=== PATIENT | female | born 1950 | race Caucasian/White ===

== ENCOUNTER 2017-08-06 12:52 | Day surgery (SDC) | payer MEDICARE, OTHER ==
[~2017-08-06] VITALS: Ht 160 cm; Wt 45.6 kg
[~2017-08-06 12:52] MED LIST: ALBIPROI INH; ALBU.083IS IH; AMOCLA250S PO; BECLOI16.8 IH; CITA20 PO; CLON.5 PO; DILT120 PO; DILT30; DILTIAZEM; FLUO20 PO; FLUSAL2505 IH; GLUCHON PO; IPRAIS NEB; LAVAP17G PO; METO25ER PO; MIRT15 PO; Norco 10-325 T1 EACH PO; OXYC5 PO; PRED20 PO; TIOT18 IH; TPN ELECTROLYTE
[2017-08-06] MEDS ORDERED: MIRT15ST PO (13:38)
[2018-02-13] MEDS ORDERED: ONDA4ODT SL (18:05)
[2018-02-13] MEDS ORDERED: ALEN70 PO (18:06)
[2018-06-04] MEDS ORDERED: SACC250C PO (13:52)
[2018-06-04] MEDS ORDERED: Feverall650 MG PR (13:54)
[2018-06-04] MEDS ORDERED: Acetaminophen325 M1 PO (13:55)
[2018-06-04] MEDS ORDERED: ALBU2.5V5 NEB (13:56)
[2018-06-04] MEDS ORDERED: CLON.5 PO (13:57)
[2018-06-04] MEDS ORDERED: BENADRYL25 MG PO (13:57)
[2018-06-04] MEDS ORDERED: K-Dur20 MEQ PO (14:13)
== END 2017-08-06 15:51 | disposition home or self-care (01) ==
LOC: ORSCSDS 12:52
PROVIDERS: Internal Medicine Gastroenterology
PROC: 0DJD8ZZ Inspection of Lower Intestinal Tract, Via Natural or Artificial Opening Endoscopic (ICD-10-PCS; principal; 2017-08-06 14:15)
PROC: 0DBL8ZX Excision of Transverse Colon, Via Natural or Artificial Opening Endoscopic, Diagnostic (ICD-10-PCS; principal; 2017-08-06 14:15)
DX: Z85.048 Personal history of other malignant neoplasm of rectum, rectosigmoid junction, and anus (principal); R19.7 Diarrhea, unspecified; K52.9 Noninfective gastroenteritis and colitis, unspecified; K63.5 Polyp of colon; J43.8 Other emphysema; Z87.891 Personal history of nicotine dependence; Z79.899 Other long term (current) drug therapy
CPT/HCPCS: 88305; J7120

== ENCOUNTER 2018-01-01 10:47 | Day surgery (SDC) | payer MEDICARE, OTHER ==
[~2018-01-01] VITALS: Ht 160 cm; Wt 45.4 kg
[~2018-01-01 10:47] MED LIST changes: +MIRT15ST PO
== END 2018-01-01 22:57 | disposition home or self-care (01) ==
LOC: ORSCMMR 10:47 → ORD 12:15 → ORSCMMR 12:15
PROVIDERS: Surgery
PROC: 02HV33Z Insertion of Infusion Device into Superior Vena Cava, Percutaneous Approach (ICD-10-PCS; principal; 2018-01-01 12:15)
PROC: B5181ZA Fluoroscopy of Superior Vena Cava using Low Osmolar Contrast, Guidance (ICD-10-PCS; principal; 2018-01-01 12:15)
DX: C78.01 Secondary malignant neoplasm of right lung (principal); I10 Essential (primary) hypertension; I49.9 Cardiac arrhythmia, unspecified; J44.9 Chronic obstructive pulmonary disease, unspecified; Z87.891 Personal history of nicotine dependence; Z99.81 Dependence on supplemental oxygen; Z79.899 Other long term (current) drug therapy
CPT/HCPCS: 77001; C1788; J0690; J1100; J1642; J2250; J2405; J3010; J7120

== ENCOUNTER 2018-02-08 20:11 | Emergency (ER) | payer MEDICARE, OTHER ==
[~2018-02-08] VITALS: Ht 160 cm; Wt 43.5 kg
[2018-02-08] MEDS ORDERED: HYDR1TAB94 PO (20:22)
[2018-02-08 20:34] LABS: BASOPHILS ABSOLUTE AUTO 0.03 K/mm3 (0.00-0.23); BASOPHILS PERCENT AUTO 1 % (0-2); EOSINOPHILS ABSOLUTE AUTO 0.05 K/mm3 (0.00-0.68); EOSINOPHILS PERCENT AUTO 1 % (0-6); IMMATURE GRAN ABSOLUTE AUTO 0.04 K/mm3 (0.00-0.10); IMMATURE GRAN PERCENT AUTO 1 % (0-1); LYMPHOCYTES ABSOLUTE AUTO 0.54 K/mm3 (0.84-5.20); LYMPHOCYTES PERCENT AUTO 10 % (21-46); MONOCYTES ABSOLUTE AUTO 0.14 K/mm3 (0.16-1.47); MONOCYTES PERCENT AUTO 3 % (4-13); Mean Corpuscular HGB 31.1 pg (26.0-34.0); Mean Corpuscular HGB Conc 34.3 g/dL (31.5-36.5); Mean Corpuscular Volume 91 fL (80-100); Mean Platelet Volume 9.6 fL (9.1-12.4); NEUTROPHILS PERCENT AUTO 85 % (41-73); Platelet Count 279 K/mm3 (150-400); RDW Coefficient Variation 12.4 % (11.7-14.2); RDW Standard Deviation 40.9 fL (35.1-46.3); Red Blood Cell Count 3.86 M/mm3 (3.80-5.20)
[2018-02-08 20:46] LABS: Alanine Aminotransfer (ALT/SGP 28 U/L (12-78); Albumin, Blood 2.8 g/dL (3.4-5.0); Albumin/Globulin Ratio 0.8 (0.8-1.8); Alk Phos 146 U/L (50-136); Anion Gap 10 mmol/L (6-16); Aspartate Aminotrans (AST/SGOT 23 U/L (12-37); Bilirubin, Total 0.5 mg/dL (0.1-1.0); Blood Urea Nitrogen 18 mg/dL (8-24); Bun/Creatinine Ratio 23.6 (12.0-20.0); CO2, Blood 32 mmol/L (21-32); Calcium, Blood 9.5 mg/dL (8.5-10.1); Chloride, Blood 100 mmol/L (98-108); Creatinine, Blood 0.76 mg/dL (0.40-1.00); Globulin, Blood 3.5 g/dL (2.2-4.0); Glomerular Filtration Rate >60 (60-); Glucose, Blood 122 mg/dL (70-99); Potassium, Blood 3.2 mmol/L (3.5-5.5); Sodium, Blood 142 mmol/L (136-145); Total Protein, Blood 6.3 g/dL (6.4-8.2)
[2018-02-08 21:55] LABS: Source, Urine Clean Catch
[2018-02-08 21:59] LABS: Bilirubin, Urine Neg (Neg); Blood, Urine Neg (Neg); Glucose Qualitative, Urine Neg (Neg); Ketones, Urine 1+ (Neg); Leukocyte Esterase, Urine Neg (Neg); Nitrite, Urine Neg (Neg); Protein, Urine Neg (Neg); Urobilinogen, Urine NORM (Normal)
[2018-02-08 22:09] LABS: Appearance, Urine Clear (Clear); Color, Urine Yellow (P-Yellow)
== END 2018-02-08 22:32 | disposition home or self-care (01) ==
LOC: ER 20:11
PROVIDERS: Emergency Medicine
DX: C19 Malignant neoplasm of rectosigmoid junction (principal); J44.9 Chronic obstructive pulmonary disease, unspecified; Z79.899 Other long term (current) drug therapy; Z87.891 Personal history of nicotine dependence
CPT/HCPCS: 36415; 80053; 81003; 83690; 85025; 96374; 99284-25; J2405

== ENCOUNTER 2018-02-22 12:47 | Emergency (ER) | payer MEDICARE, OTHER ==
[~2018-02-22] VITALS: Ht 160 cm; Wt 40.8 kg
[~2018-02-22 12:47] MED LIST changes: +ALEN70 PO; +HYDR1TAB94 PO; +ONDA4ODT SL
[2018-02-22] MEDS ORDERED: Lomotil Tablet1 EACH PO (12:57)
[2018-02-22] MEDS ORDERED: OXYC5 PO (12:57)
[2018-02-22] MEDS ORDERED: FLUT1DIS5 INH (12:58)
[2018-02-22 13:09] LABS: BASOPHILS ABSOLUTE AUTO 0.03 K/mm3 (0.00-0.23); BASOPHILS PERCENT AUTO 1 % (0-2); EOSINOPHILS ABSOLUTE AUTO 0.06 K/mm3 (0.00-0.68); EOSINOPHILS PERCENT AUTO 2 % (0-6); Hematocrit 33.9 % (33.0-51.0); Hemoglobin 11.3 g/dL (11.5-16.0); IMMATURE GRAN ABSOLUTE AUTO 0.05 K/mm3 (0.00-0.10); IMMATURE GRAN PERCENT AUTO 1 % (0-1); LYMPHOCYTES ABSOLUTE AUTO 0.32 K/mm3 (0.84-5.20); LYMPHOCYTES PERCENT AUTO 9 % (21-46); MONOCYTES ABSOLUTE AUTO 0.06 K/mm3 (0.16-1.47); MONOCYTES PERCENT AUTO 2 % (4-13); Mean Corpuscular HGB Conc 33.3 g/dL (31.5-36.5); Mean Corpuscular Volume 93 fL (80-100); Mean Platelet Volume 9.5 fL (9.1-12.4); NEUTROPHILS ABSOLUTE AUTO 3.17 K/mm3 (1.96-9.15); NEUTROPHILS PERCENT AUTO 86 % (41-73); Platelet Count 250 K/mm3 (150-400); RDW Coefficient Variation 13.1 % (11.7-14.2); RDW Standard Deviation 44.3 fL (35.1-46.3); Red Blood Cell Count 3.64 M/mm3 (3.80-5.20); White Blood Cell Count 3.69 K/mm3 (4.00-11.30)
[2018-02-22 13:37] LABS: Troponin I <0.015 ng/mL (0.000-0.040)
[2018-02-22 13:54] LABS: Alanine Aminotransfer (ALT/SGP 23 U/L (12-78); Albumin, Blood 2.4 g/dL (3.4-5.0); Albumin/Globulin Ratio 0.8 (0.8-1.8); Alk Phos 123 U/L (50-136); Anion Gap 6 mmol/L (6-16); Aspartate Aminotrans (AST/SGOT 24 U/L (12-37); Bilirubin, Total 0.3 mg/dL (0.1-1.0); Blood Urea Nitrogen 28 mg/dL (8-24); Bun/Creatinine Ratio 44.9 (12.0-20.0); CO2, Blood 27 mmol/L (21-32); Chloride, Blood 107 mmol/L (98-108); Creatinine, Blood 0.62 mg/dL (0.40-1.00); Globulin, Blood 3.2 g/dL (2.2-4.0); Glomerular Filtration Rate >60 (60-); Glucose, Blood 104 mg/dL (70-99); Potassium, Blood 3.8 mmol/L (3.5-5.5); Sodium, Blood 140 mmol/L (136-145); Total Protein, Blood 5.6 g/dL (6.4-8.2)
[2018-02-22] MEDS ORDERED: Benadryl A12.5 MG/5 PO (15:15)
== END 2018-02-22 16:00 | disposition home or self-care (01) ==
LOC: ER 12:47
PROVIDERS: Emergency Medicine
DX: R13.10 Dysphagia, unspecified (principal); E86.0 Dehydration; R53.1 Weakness; J44.9 Chronic obstructive pulmonary disease, unspecified; Z79.899 Other long term (current) drug therapy; Z87.891 Personal history of nicotine dependence
CPT/HCPCS: 36415; 71046; 80053; 84484; 85025; 93005; 93010; 96360; 99284-25; J7120

== ENCOUNTER → 2018-02-26 | Outpatient (CLI) | payer MEDICARE, OTHER ==
[~2018-02-26] MED LIST changes: +Benadryl A12.5 MG/5 PO; +FLUT1DIS5 INH; +Lomotil Tablet1 EACH PO
[2018-03-01 17:08] LABS: A/G RATIO 0.9 (0.7-1.7); ALBUMIN 2.8 g/dL (2.9-4.4); ALPHA-1-GLOBULIN 0.3 g/dL (0.0-0.4); GAMMA GLOBULIN 0.7 g/dL (0.4-1.8); IMMUNOGLOBULIN A, QN, SERUM 183 mg/dL (87-352); IMMUNOGLOBULIN G, QN, SERUM 650 mg/dL (700-1600); IMMUNOGLOBULIN M, QN, SERUM 31 mg/dL (26-217); M-SPIKE 0.1 g/dL (Not Observed); PROTEIN, TOTAL, SERUM 5.8 g/dL (6.0-8.5)
== END | disposition home or self-care (01) ==
LOC: LAB 08:48 → LAB SHORT 08:48
PROVIDERS: Internal Medicine Hematology & Oncology
DX: R16.0 Hepatomegaly, not elsewhere classified (principal); R91.1 Solitary pulmonary nodule
CPT/HCPCS: 84165

== ENCOUNTER → 2018-03-16 | Outpatient (CLI) | payer MEDICARE, OTHER ==
[2018-03-16 17:24] LABS: Alanine Aminotransfer (ALT/SGP 33 U/L (12-78); Albumin, Blood 2.8 g/dL (3.4-5.0); Albumin/Globulin Ratio 0.8 (0.8-1.8); Alk Phos 141 U/L (50-136); Anion Gap 11 mmol/L (6-16); Aspartate Aminotrans (AST/SGOT 22 U/L (12-37); Bilirubin, Total 0.4 mg/dL (0.1-1.0); Blood Urea Nitrogen 19 mg/dL (8-24); Bun/Creatinine Ratio 27.2 (12.0-20.0); CO2, Blood 26 mmol/L (21-32); Calcium, Blood 8.6 mg/dL (8.5-10.1); Chloride, Blood 110 mmol/L (98-108); Globulin, Blood 3.3 g/dL (2.2-4.0); Glomerular Filtration Rate >60 (60-); Glucose, Blood 112 mg/dL (70-99); Potassium, Blood 2.6 mmol/L (3.5-5.5); Sodium, Blood 147 mmol/L (136-145); Total Protein, Blood 6.1 g/dL (6.4-8.2)
== END | disposition home or self-care (01) ==
LOC: LAB 16:36 → LAB SHORT 16:36
PROVIDERS: Internal Medicine Hematology & Oncology
DX: C18.9 Malignant neoplasm of colon, unspecified (principal)
CPT/HCPCS: 80053; 82378

== ENCOUNTER → 2018-03-31 | Outpatient (CLI) | payer MEDICARE, OTHER ==
[2018-03-31 16:21] LABS: Alanine Aminotransfer (ALT/SGP 21 U/L (12-78); Albumin, Blood 2.5 g/dL (3.4-5.0); Albumin/Globulin Ratio 0.8 (0.8-1.8); Alk Phos 152 U/L (50-136); Anion Gap 10 mmol/L (6-16); Aspartate Aminotrans (AST/SGOT 26 U/L (12-37); Bilirubin, Total 0.4 mg/dL (0.1-1.0); Blood Urea Nitrogen 11 mg/dL (8-24); Bun/Creatinine Ratio 19.4 (12.0-20.0); CO2, Blood 26 mmol/L (21-32); Calcium, Blood 8.6 mg/dL (8.5-10.1); Chloride, Blood 105 mmol/L (98-108); Creatinine, Blood 0.57 mg/dL (0.40-1.00); Globulin, Blood 3.2 g/dL (2.2-4.0); Glomerular Filtration Rate >60 (60-); Glucose, Blood 73 mg/dL (70-99); Magnesium, Blood 2.1 mg/dL (1.6-2.4); Potassium, Blood 4.3 mmol/L (3.5-5.5); Sodium, Blood 141 mmol/L (136-145); Total Protein, Blood 5.7 g/dL (6.4-8.2)
== END ==
LOC: LAB 15:33 → LAB SHORT 15:33
PROVIDERS: Internal Medicine Hematology & Oncology
DX: C18.9 Malignant neoplasm of colon, unspecified (principal)
CPT/HCPCS: 80053; 83735

== ENCOUNTER 2018-07-16 08:00 | Day surgery (SDC) | payer MEDICARE, OTHER ==
[~2018-07-16 08:00] MED LIST changes: +ALBU2.5V5 NEB; +Acetaminophen325 M1 PO; +BENADRYL25 MG PO; +Feverall650 MG PR; +K-Dur20 MEQ PO; +SACC250C PO
== END 2018-07-16 23:06 | disposition home or self-care (01) ==
LOC: WOUND 08:00
DX: T81.31XD Disruption of external operation (surgical) wound, not elsewhere classified, subsequent encounter (principal); Z93.1 Gastrostomy status
CPT/HCPCS: G0463

== ENCOUNTER 2018-07-26 15:00 | Day surgery (SDC) | payer MEDICARE, OTHER | END 2018-07-26 22:40 | disposition home or self-care (01) | LOC: WOUND 15:00 | DX: T81.31XD Disruption of external operation (surgical) wound, not elsewhere classified, subsequent encounter (principal); Z93.1 Gastrostomy status | CPT/HCPCS: G0463 ==

== ENCOUNTER → 2018-08-11 | Outpatient (CLI) | payer MEDICARE, OTHER | END | disposition home or self-care (01) | LOC: LAB EV 14:26 → LAB SHORT 14:26 | DX: N39.0 Urinary tract infection, site not specified (principal) | CPT/HCPCS: 87086 ==

== ENCOUNTER 2018-08-16 10:20 | Day surgery (SDC) | payer MEDICARE, OTHER | END 2018-08-16 22:53 | disposition home or self-care (01) | LOC: WOUND 10:20 | DX: T81.32XD Disruption of internal operation (surgical) wound, not elsewhere classified, subsequent encounter (principal); Z93.1 Gastrostomy status | CPT/HCPCS: G0463 ==

== ENCOUNTER → 2018-12-05 | Outpatient (CLI) | payer MEDICARE, OTHER ==
[2018-12-05 14:07] LABS: BASOPHILS ABSOLUTE AUTO 0.04 K/mm3 (0.00-0.23); BASOPHILS PERCENT AUTO 1 % (0-2); EOSINOPHILS ABSOLUTE AUTO 0.08 K/mm3 (0.00-0.68); EOSINOPHILS PERCENT AUTO 1 % (0-6); Hematocrit 37.3 % (33.0-51.0); Hemoglobin 12.5 g/dL (11.5-16.0); IMMATURE GRAN ABSOLUTE AUTO 0.02 K/mm3 (0.00-0.10); IMMATURE GRAN PERCENT AUTO 0 % (0-1); LYMPHOCYTES ABSOLUTE AUTO 0.61 K/mm3 (0.84-5.20); LYMPHOCYTES PERCENT AUTO 9 % (21-46); MONOCYTES ABSOLUTE AUTO 0.38 K/mm3 (0.16-1.47); MONOCYTES PERCENT AUTO 6 % (4-13); Mean Corpuscular HGB 31.8 pg (26.0-34.0); Mean Corpuscular HGB Conc 33.5 g/dL (31.5-36.5); Mean Corpuscular Volume 95 fL (80-100); Mean Platelet Volume 10.2 fL (9.1-12.4); NEUTROPHILS ABSOLUTE AUTO 5.58 K/mm3 (1.96-9.15); NEUTROPHILS PERCENT AUTO 83 % (41-73); Platelet Count 187 K/mm3 (150-400); RDW Coefficient Variation 13.1 % (11.7-14.2); RDW Standard Deviation 45.2 fL (35.1-46.3); Red Blood Cell Count 3.93 M/mm3 (3.80-5.20); White Blood Cell Count 6.71 K/mm3 (4.00-11.30)
[2018-12-05 14:23] LABS: Alanine Aminotransfer (ALT/SGP 53 U/L (12-78); Albumin, Blood 3.8 g/dL (3.4-5.0); Alk Phos 140 U/L (40-126); Anion Gap 10 mmol/L (6-16); Aspartate Aminotrans (AST/SGOT 33 U/L (12-37); Bilirubin, Total 0.4 mg/dL (0.1-1.0); Blood Urea Nitrogen 10 mg/dL (8-24); Bun/Creatinine Ratio 15.9 (12.0-20.0); CO2, Blood 24 mmol/L (21-32); Calcium, Blood 9.4 mg/dL (8.5-10.1); Chloride, Blood 105 mmol/L (98-108); Creatinine, Blood 0.63 mg/dL (0.40-1.00); Globulin, Blood 3.9 g/dL (2.2-4.0); Glomerular Filtration Rate >60 (60-); Glucose, Blood 101 mg/dL (70-99); Sodium, Blood 139 mmol/L (136-145); Total Protein, Blood 7.7 g/dL (6.4-8.2)
== END | disposition home or self-care (01) ==
LOC: LAB EV 14:02 → LAB SHORT 14:02
PROVIDERS: Physician Assistant
DX: R05 Cough (principal)
CPT/HCPCS: 80053; 85025

== ENCOUNTER 2019-03-30 08:23 | Day surgery (SDC) | payer MEDICARE, OTHER ==
[~2019-03-30] VITALS: Ht 160 cm; Wt 39.1 kg
--- NOTE | 2019-03-30 09:25 | NUR ---
Ambulatory in Day Surgery. History, Chart, Medications and Allergies reviewed before start of procedure.Patient confirms NPO status and agrees with scheduled surgery. Patient reports completing Chlorhexadine shower X2 prior to admission to hospital.Surgical site prepped with 2% Chlorhexidine cloth wipe. Patient States Post-Procedure ride home has been arranged. PATIENT ARRIVED WITH BACKPACK CONTAINING PERSONAL OXYGEN TANK. IT IS PLACED WITH HER PERSONAL BELONGINGS UNDER BED.
--- NOTE | 2019-03-30 12:56 | NUR ---
Discharge instructions reviewed with patient. Patient verbalizes understanding. Copy given to patient to take home. Patient up to Ambulate independently. Gait steady. Patient States Post-Procedure ride home has been arranged. Discharged via wheelchair to private car for ride home. HAD TO REINFORCE IV SITE DRESSING DUE TO LEAKING AFTER IV REMOVAL
== END 2019-03-30 12:48 | disposition home or self-care (01) ==
LOC: ORSCMMR 08:23
PROVIDERS: Surgery
PROC: 02HV33Z Insertion of Infusion Device into Superior Vena Cava, Percutaneous Approach (ICD-10-PCS; principal; 2019-03-30 10:00)
PROC: B5181ZA Fluoroscopy of Superior Vena Cava using Low Osmolar Contrast, Guidance (ICD-10-PCS; principal; 2019-03-30 10:00)
DX: C18.9 Malignant neoplasm of colon, unspecified (principal); J44.9 Chronic obstructive pulmonary disease, unspecified; Z99.81 Dependence on supplemental oxygen; Z87.891 Personal history of nicotine dependence; Z79.899 Other long term (current) drug therapy
CPT/HCPCS: 77001; A9270-GY; C1788; J0690; J1100; J1642; J2370; J2405; J2704; J3010; J7120

== ENCOUNTER → 2019-05-19 | Outpatient (CLI) | payer MEDICARE, OTHER ==
[2019-05-19 12:22] LABS: BASOPHILS ABSOLUTE AUTO 0.03 K/mm3 (0.00-0.23); BASOPHILS PERCENT AUTO 1 % (0-2); EOSINOPHILS ABSOLUTE AUTO 0.07 K/mm3 (0.00-0.68); EOSINOPHILS PERCENT AUTO 1 % (0-6); Hematocrit 36.2 % (33.0-51.0); Hemoglobin 11.8 g/dL (11.5-16.0); IMMATURE GRAN ABSOLUTE AUTO 0.02 K/mm3 (0.00-0.10); IMMATURE GRAN PERCENT AUTO 0 % (0-1); LYMPHOCYTES ABSOLUTE AUTO 0.67 K/mm3 (0.84-5.20); LYMPHOCYTES PERCENT AUTO 13 % (21-46); MONOCYTES PERCENT AUTO 2 % (4-13); Mean Corpuscular HGB 32.2 pg (26.0-34.0); Mean Corpuscular HGB Conc 32.6 g/dL (31.5-36.5); Mean Platelet Volume 10.3 fL (9.1-12.4); NEUTROPHILS ABSOLUTE AUTO 4.48 K/mm3 (1.96-9.15); NEUTROPHILS PERCENT AUTO 83 % (41-73); Platelet Count 202 K/mm3 (150-400); RDW Coefficient Variation 13.8 % (11.7-14.2); RDW Standard Deviation 50.1 fL (35.1-46.3); Red Blood Cell Count 3.67 M/mm3 (3.80-5.20); White Blood Cell Count 5.37 K/mm3 (4.00-11.30)
[2019-05-19 12:23] LABS: Mean Corpuscular Volume 99 fL (80-100)
[2019-05-19 12:39] LABS: Anion Gap 6 mmol/L (6-16); Blood Urea Nitrogen 13 mg/dL (8-24); Bun/Creatinine Ratio 19.7 (12.0-20.0); CO2, Blood 32 mmol/L (21-32); Calcium, Blood 8.6 mg/dL (8.5-10.1); Chloride, Blood 109 mmol/L (98-108); Creatinine, Blood 0.66 mg/dL (0.40-1.00); Glomerular Filtration Rate >60 (60-); Glucose, Blood 101 mg/dL (70-99); Potassium, Blood 3.1 mmol/L (3.5-5.5); Sodium, Blood 147 mmol/L (136-145)
[2019-05-19 12:47] LABS: Troponin I <0.017 ng/mL (0.000-0.040)
== END | disposition home or self-care (01) ==
LOC: LAB EV 12:18 → LAB SHORT 12:18
PROVIDERS: Physician Assistant Surgical
DX: R07.81 Pleurodynia (principal)
CPT/HCPCS: 80048; 84484; 85025

== ENCOUNTER 2020-11-01 17:08 | Inpatient (IN) | payer MEDICARE, OTHER ==
[~2020-11-01] VITALS: Ht 160 cm; Wt 38.3 kg
[~2020-11-01 17:08] MED LIST changes: +Celexa10 MG; -DILT120 PO; -FLUT1DIS5 INH; -MIRT15ST PO
[2020-11-01 17:51] LABS: BASOPHILS PERCENT AUTO 0 % (0-2); EOSINOPHILS ABSOLUTE AUTO 0.01 K/mm3 (0.00-0.68); EOSINOPHILS PERCENT AUTO 1 % (0-6); Hematocrit 36.8 % (33.0-51.0); Hemoglobin 11.9 g/dL (11.5-16.0); IMMATURE GRAN PERCENT AUTO 0 % (0-1); LYMPHOCYTES ABSOLUTE AUTO 0.31 K/mm3 (0.84-5.20); LYMPHOCYTES PERCENT AUTO 23 % (21-46); MONOCYTES ABSOLUTE AUTO 0.08 K/mm3 (0.16-1.47); MONOCYTES PERCENT AUTO 6 % (4-13); Mean Corpuscular HGB Conc 32.3 g/dL (31.5-36.5); Mean Corpuscular Volume 99 fL (80-100); Mean Platelet Volume 9.9 fL (9.1-12.4); NEUTROPHILS ABSOLUTE AUTO 0.96 K/mm3 (1.96-9.15); NEUTROPHILS PERCENT AUTO 71 % (41-73); Platelet Count 358 K/mm3 (150-400); RDW Coefficient Variation 15.5 % (11.7-14.2); RDW Standard Deviation 56.1 fL (35.1-46.3); Red Blood Cell Count 3.72 M/mm3 (3.80-5.20); White Blood Cell Count 1.36 K/mm3 (4.00-11.30)
[2020-11-01 18:04] LABS: Alanine Aminotransfer (ALT/SGP 36 U/L (12-78); Albumin, Blood 3.7 g/dL (3.4-5.0); Albumin/Globulin Ratio 1.1 (0.8-1.8); Alk Phos 75 U/L (50-136); Anion Gap 4 mmol/L (6-16); Aspartate Aminotrans (AST/SGOT 29 U/L (12-37); Bilirubin, Total 0.7 mg/dL (0.1-1.0); Blood Urea Nitrogen 28 mg/dL (8-24); Bun/Creatinine Ratio 36.6 (12.0-20.0); CO2, Blood 38 mmol/L (21-32); Calcium, Blood 9.7 mg/dL (8.5-10.1); Chloride, Blood 97 mmol/L (98-108); Creatinine, Blood 0.77 mg/dL (0.40-1.00); Globulin, Blood 3.3 g/dL (2.2-4.0); Glomerular Filtration Rate >60 (60-); Glucose, Blood 106 mg/dL (70-99); Potassium, Blood 3.5 mmol/L (3.5-5.5); Sodium, Blood 139 mmol/L (136-145)
[2020-11-01 20:41] LABS: Source, Urine Clean Catch
[2020-11-01 20:46] LABS: Appearance, Urine Cloudy (Clear); Bilirubin, Urine Neg (Neg); Blood, Urine Neg (Neg); Color, Urine Yellow (P-Yellow); Glucose Qualitative, Urine Neg (Neg); Ketones, Urine Neg (Neg); Leukocyte Esterase, Urine 1+ (Neg); Nitrite, Urine Neg (Neg); Protein, Urine 1+ (Neg); Urobilinogen, Urine NORM (Normal)
[2020-11-01 20:53] LABS: Granular Casts 0-2 /lpf (0)
[2020-11-01 20:54] LABS: Amorphous Mod (0-Heavy); Bacteria Many /hpf; Red Blood Cells, Urine 0-2 /hpf (0-2); Squamous Epithelial Cells Few /hpf (Few); White Blood Cells, Urine 0-2 /hpf (0-5)
[2020-11-01] MEDS ORDERED: TIOT18 INH (22:41)
[2020-11-01] MEDS ORDERED: DILT120 PO (22:41)
[2020-11-01] MEDS ORDERED: MIRT15 PO (22:42)
[2020-11-01] MEDS ORDERED: ESCI10 PO (22:42)
[2020-11-01] MEDS ORDERED: FLUT1DIS5 INH (22:43)
[2020-11-01] MEDS ORDERED: CLON.5 PO (22:44)
[2020-11-01] MEDS ORDERED: Ventolin/Prove6.7 GM INH (22:45)
--- NOTE | 2020-11-02 03:06 | NUR ---
PT TO ROOM 219, A/O X4, SBA IN ROOM. DENIES PAIN AND N/V AT THIS TIME. COLOSTOMY IN PLACE TO ABD WITH SMALL AMT STOOL. PT ORIENTED TO ROOM AND CALL LIGHT. NPO STATUS; SWABS PROVIDED. IV FLUIDS STARTED AT 75/HR.
[2020-11-02 04:57] LABS: Anion Gap 4 mmol/L (6-16); Blood Urea Nitrogen 21 mg/dL (8-24); Bun/Creatinine Ratio 28.6 (12.0-20.0); CO2, Blood 30 mmol/L (21-32); Calcium, Blood 7.8 mg/dL (8.5-10.1); Chloride, Blood 108 mmol/L (98-108); Creatinine, Blood 0.73 mg/dL (0.40-1.00); Glomerular Filtration Rate >60 (60-); Glucose, Blood 81 mg/dL (70-99); Sodium, Blood 142 mmol/L (136-145)
--- NOTE | 2020-11-02 08:09 | NUR ---
pt reports dec abd dist but tempering kiln tender req med passing flatus and some liquid stool
--- NOTE | 2020-11-02 09:00 | NUR ---
25 mcg fent given offered klonopin pt declined at this time po meds given with sip of h20 no nausea pain 12/27
--- NOTE | 2020-11-02 11:12 | NUR ---
dr oneil by to see pt
--- NOTE | 2020-11-02 14:04 | NUR ---
pt given additional 50 mcg fent per new order from dr sendy blanchard to 01/26 earlier pt had some ice chips
--- NOTE | 2020-11-02 15:44 | NUR ---
dr poole by to see pt weight bearing status to cont nwb for 6 weeks
--- NOTE | 2020-11-02 17:02 | NUR ---
pt resting still only wanting to have ice chips at this time
--- NOTE | 2020-11-02 17:35 | NUR ---
Met with Maria R today at her bedside. She is laying back in bed, with the lights off, but she invites me in anyway. We discussed her current medical symptoms, of rectal cancer with mets to liver, lung and abd. She states currently, she receives chemotherapy to shrink the tumors and improve quality of life. She's in the hospital at this time due to increased weakness to bilat lower extremet weakness; unknown etiology. No specific palliative needs at this time.
--- NOTE | 2020-11-02 18:24 | NUR ---
PT SLEEPING WAKES TO VERBAL STIMULI FALLS BACK TO SLEEP
[2020-11-03 05:05] LABS: Albumin, Blood 2.6 g/dL (3.4-5.0); Anion Gap 8 mmol/L (6-16); Blood Urea Nitrogen 28 mg/dL (8-24); CO2, Blood 25 mmol/L (21-32); Calcium, Blood 7.7 mg/dL (8.5-10.1); Chloride, Blood 111 mmol/L (98-108); Creatinine, Blood 0.74 mg/dL (0.40-1.00); Glomerular Filtration Rate >60 (60-); Glucose, Blood 60 mg/dL (70-99); Phosphorus, Blood 3.5 mg/dL (2.5-4.9); Potassium, Blood 3.7 mmol/L (3.5-5.5); Sodium, Blood 144 mmol/L (136-145)
[2020-11-03 05:49] LABS: BASOPHILS ABSOLUTE AUTO 0.01 K/mm3 (0.00-0.23); BASOPHILS PERCENT AUTO 1 % (0-2); Hematocrit 32.1 % (33.0-51.0); Hemoglobin 9.9 g/dL (11.5-16.0); Mean Corpuscular HGB 32.1 pg (26.0-34.0); Mean Corpuscular HGB Conc 30.8 g/dL (31.5-36.5); Mean Platelet Volume 10.2 fL (9.1-12.4); Platelet Count 233 K/mm3 (150-400); RDW Coefficient Variation 15.6 % (11.7-14.2); RDW Standard Deviation 59.4 fL (35.1-46.3); Red Blood Cell Count 3.08 M/mm3 (3.80-5.20); White Blood Cell Count 1.28 K/mm3 (4.00-11.30)
[2020-11-03 05:51] LABS: EOSINOPHILS ABSOLUTE AUTO 0.03 K/mm3 (0.00-0.68); EOSINOPHILS PERCENT AUTO 2 % (0-6); IMMATURE GRAN ABSOLUTE AUTO 0.07 K/mm3 (0.00-0.10); IMMATURE GRAN PERCENT AUTO 6 % (0-1); LYMPHOCYTES ABSOLUTE AUTO 0.28 K/mm3 (0.84-5.20); LYMPHOCYTES PERCENT AUTO 22 % (21-46); MONOCYTES ABSOLUTE AUTO 0.05 K/mm3 (0.16-1.47); MONOCYTES PERCENT AUTO 4 % (4-13); NEUTROPHILS ABSOLUTE AUTO 0.84 K/mm3 (1.96-9.15); NEUTROPHILS PERCENT AUTO 66 % (41-73)
[2020-11-03 05:52] LABS: Mean Corpuscular Volume 104 fL (80-100)
[2020-11-03 06:16] LABS: BAND PERCENT MAN 9 % (0-8); BASOPHILS PERCENT MAN 0 % (0-2); EOSINOPHILS ABSOLUTE MAN 0.02 K/mm3 (0.00-0.68); EOSINOPHILS PERCENT MAN 2 % (0-6); LYMPHOCYTES % ATYPICAL MANUAL 2 % (0-0); LYMPHOCYTES ABSOLUTE MAN 0.26 K/mm3 (0.84-5.20); LYMPHOCYTES PERCENT MAN 19 % (21-46); METAMYELOCYTE ABSOLUTE MAN 0.01 K/mm3 (0.00-0.00); METAMYELOCYTE PERCENT MAN 1 % (0-0); MONOCYTES ABSOLUTE MAN 0.06 K/mm3 (0.16-1.47); MONOCYTES PERCENT MAN 5 % (4-13); SEG NEUTROPHILS PERCENT MAN 62 % (41-73); TOTAL CELLS COUNTED 100
--- NOTE | 2020-11-03 07:32 | NUR ---
SHIFT SUMMARY S/P N/V W/ ABD DISTENTION AND ABD PAIN, A/O X3 (PERSON/PLACE/SITUATION), TOLERATING CLEARS BUT PT PREFERS ICE CHIPS, GLUCOSE LOW @ MORNING LABS, GAVE SWEETENED APPLE JUICE AND RECHECKED AND FOUND GLUCOSE WNL (SEE LAB), DENIED PAIN THROUGH MOST OF SHIFT THOUGH PT DID REPORT INCREASE NEAR END OF SHIFT, GAVE IV MEDS DUE TO NO ORAL PAIN MEDS ORDERD, DISCUSSED ORAL PAIN MED W/ DAY RN. BEDREST PER ORDER. NO ACUTE EVENTS THIS SHIFT. CALL LIGHT IN REACH, REPORT GIVEN TO DAY RN AND ELECTRICAL PARTS RECONDITIONER.
--- NOTE | 2020-11-03 10:39 | NUR ---
PERMISSION OBTAINED FROM PT TO UPDATE HER DAUGHTER IRMA ON HER CONDITION.
--- NOTE | 2020-11-03 18:06 | NUR ---
SHIFT SUMMARY PT'S ABD REMAINS DISTENDED BUT SHE IS PASSING STOOL FROM HER OSTOMY. PT TOLERATED A FULL LIQUID TRAY FOR DINNER AND WILL ADVANCE TO REGULAR DIET TOMORROW. PT IS INDEPENDENT TO THE BATHROOM. PT IS GETTING ABX. PAIN MANAGED WITH PERCOCET. VSS. WILL MONITOR UNTIL REPORT TO NOC RN.
[2020-11-04 08:00] LABS: BASOPHILS ABSOLUTE AUTO 0.01 K/mm3 (0.00-0.23); BASOPHILS PERCENT AUTO 1 % (0-2); Hematocrit 31.5 % (33.0-51.0); Hemoglobin 9.7 g/dL (11.5-16.0); LYMPHOCYTES ABSOLUTE AUTO 0.25 K/mm3 (0.84-5.20); LYMPHOCYTES PERCENT AUTO 22 % (21-46); MONOCYTES ABSOLUTE AUTO 0.06 K/mm3 (0.16-1.47); MONOCYTES PERCENT AUTO 5 % (4-13); Mean Corpuscular HGB 32.6 pg (26.0-34.0); Mean Corpuscular HGB Conc 30.8 g/dL (31.5-36.5); Mean Corpuscular Volume 106 fL (80-100); Platelet Count 184 K/mm3 (150-400); RDW Coefficient Variation 15.6 % (11.7-14.2); RDW Standard Deviation 60.4 fL (35.1-46.3); Red Blood Cell Count 2.98 M/mm3 (3.80-5.20); White Blood Cell Count 1.12 K/mm3 (4.00-11.30)
[2020-11-04 08:06] LABS: EOSINOPHILS ABSOLUTE AUTO 0.03 K/mm3 (0.00-0.68); EOSINOPHILS PERCENT AUTO 3 % (0-6); IMMATURE GRAN ABSOLUTE AUTO 0.06 K/mm3 (0.00-0.10); IMMATURE GRAN PERCENT AUTO 5 % (0-1); NEUTROPHILS ABSOLUTE AUTO 0.71 K/mm3 (1.96-9.15); NEUTROPHILS PERCENT AUTO 63 % (41-73)
[2020-11-04 08:17] LABS: Albumin, Blood 2.3 g/dL (3.4-5.0); Anion Gap 5 mmol/L (6-16); Blood Urea Nitrogen 18 mg/dL (8-24); Bun/Creatinine Ratio 30.9 (12.0-20.0); CO2, Blood 26 mmol/L (21-32); Calcium, Blood 7.2 mg/dL (8.5-10.1); Chloride, Blood 116 mmol/L (98-108); Creatinine, Blood 0.58 mg/dL (0.40-1.00); Glomerular Filtration Rate >60 (60-); Glucose, Blood 84 mg/dL (70-99); Phosphorus, Blood 1.5 mg/dL (2.5-4.9); Potassium, Blood 3.1 mmol/L (3.5-5.5); Sodium, Blood 147 mmol/L (136-145); Vancomycin, Trough 3.7 ug/mL (5.0-10.0)
--- NOTE | 2020-11-04 17:06 | NUR ---
INCREASED PAIN AND NAUSEA PT COMPLAINED OF INCREASED PAIN AND NAUSEA. PERCOCET WAS GIVEN BUT NOT EFFECTIVE FOR PAIN. ZOFRAN AND FENTANYL GIVEN. DIET CHANGED TO FULL LIQUID PER PT REQUEST. WILL CONTINUE TO MONITOR.
--- NOTE | 2020-11-04 18:43 | NUR ---
SHIFT SUMMARY PT TOLERATED A REGULAR DIET FOR LUNCH BUT HAS HAD INCREASED PAIN AND NAUSEA THIS EVENING. PT CONTINUES TO HAVE LIQUID OSTOMY OUTPUT. SHE HAS BEEN INDEPENDENT IN THE ROOM. SPIRITUAL CARE CONSULT REQUESTED. VSS. WILL CONTINUE TO MONITOR UNTIL REPORT TO SALINAS RN.
--- NOTE | 2020-11-04 19:18 | NUR ---
SHIFT SUMMARY PT IS IN BED IN SEMI-CANO POSITION,A&O4 .PT PAIN WAS MANANGED PER EMAR.PT HAD NAUSEA THIS AFTERNOON WHICH WAS MANAGED PER EMAR.PT EMPTIED OSTOMY INDEPENDENTLY.VSS.WILL CONTINUE TO MONITOR .WILL DO A REPORT TO UNCOMING SHIFT.
--- NOTE | 2020-11-05 06:02 | NUR ---
SHIFT SUMMARY S/P ABD PAIN/DISTENTION POST GASTROGAFFIN ENEMA, A/O (ALL BUT TIME), VSS, TOLERATING PO, INDEPENDENT TO BATHROOM, MANAGES HER OWN OSTOMY BUT LEAVES ANY STOOL EMPTIED FOR NURSING TO CHART, PAIN MANAGED PER EMAR, VOIDING INDEPENDENTLY. NO ACUTE EVENTS THIS SHIFT. CALL LIGHT IN REACH, WILL CONTINUE TO MONITOR AND REPORT TO ONCOMING DAY RN.
[2020-11-05 09:17] LABS: Vancomycin, Trough 6.8 ug/mL (5.0-10.0)
[2020-11-05 09:19] LABS: Hematocrit 30.5 % (33.0-51.0); Hemoglobin 9.5 g/dL (11.5-16.0); Mean Corpuscular HGB Conc 31.1 g/dL (31.5-36.5); Mean Corpuscular Volume 103 fL (80-100); Mean Platelet Volume 10.1 fL (9.1-12.4); Platelet Count 172 K/mm3 (150-400); RDW Coefficient Variation 15.2 % (11.7-14.2); Red Blood Cell Count 2.97 M/mm3 (3.80-5.20); White Blood Cell Count 2.53 K/mm3 (4.00-11.30)
[2020-11-05 10:24] LABS: BAND PERCENT MAN 2 % (0-8); BASOPHILS PERCENT MAN 0 % (0-2); EOSINOPHILS PERCENT MAN 0 % (0-6); LYMPHOCYTES ABSOLUTE MAN 0.53 K/mm3 (0.84-5.20); LYMPHOCYTES PERCENT MAN 21 % (21-46); MONOCYTES ABSOLUTE MAN 0.15 K/mm3 (0.16-1.47); MONOCYTES PERCENT MAN 6 % (4-13); NEUTROPHILS ABSOLUTE MAN 1.84 K/mm3 (1.96-9.15); SEG NEUTROPHILS PERCENT MAN 71 % (41-73); TOTAL CELLS COUNTED 100
--- NOTE | 2020-11-05 15:33 | NUR ---
SPOKE WITH DR HARLEY REGARDING PATIENTS NAUSEA AND PAIN. PER DR HARLEY THE PATIENT SHOULD BE NPO AT THIS TIME AND ORDERS RECIEVED TO PLACE AN NG TUBE IF NAUSEA INCREASES. PT WISHES TO HOLD OFF ON THE NG TUBE AT THIS TIME IN HOPE THAT NAUSEA RESOLVES WITH NPO. SHE IS AGREEABLE TO THE NG TUBE SHOULD THE NAUSEA INCREASE.
--- NOTE | 2020-11-05 17:03 | NUR ---
Spiritual care note: Mrs. Hyatt appeared sleepy and tearful. She states she is not sure yet what is "going on" with her health. She tells me she has been anxious and quite worried. She responded well to gentle spiritual budget counselor as she has a life-long madhavi in a loving God. We prayed together for the awareness of God's presence and healing. I will remain available.
--- NOTE | 2020-11-05 17:24 | NUR ---
SHIFT SUMMARY PT AAOX4, IND IN ROOM. PT MANAGES OWN OSTOMY. REPORTS ONLY LIQUID OUTPUT IN BAG AND SMALL AMOUNT. VERY LOW GAS OUTPUT PER PT. PT REPORTED NAUSEA THAT WAS UNRELIEVED WITH ZOFRAN. PT IS NOW NPO PER MD ORDERS, PT IS AGREEABLE. WANTS TO STAY NPO AND AVOID NG TUBE AT THIS TIME. IS OKAY WITH ORDERS FOR NG TUBE IF SHE SHOULD NEED IT. WILL MAINTAIN NPO AND MONITOR FOR OUTPUT.
--- NOTE | 2020-11-06 03:09 | NUR ---
SHIFT SUMMARY: ABD PAIN/SBO PATIENT IS ALERT AND ORIENTED X4 WHILE AWAKE. SHE HAS BEEN ASLEEP MAJORITY OF THE SHIFT. VS ARE WNL AND IS ON 2L OXYGEN WHICH IS THE PATIENTS BASELINE. PAIN IS CONTROLLED WITH 1 PERCOCET PO. PATIENT HAS BEEN NPO AND HAS SINCE NOT BEEN NAUSEOUS OR VOMITED. COLOSTOMY ON HER RUQ HAS BEEN HAVING SEMI FORMED SOFT OUTPUT. SHE HAS BEEN VOIDING YELLOW URINE. METAPORT IS NOT ACCESSED BUT IS IN HER RUQ OF HER CHEST. FLUIDS ARE RUNNING THROUGH HER IV. IV IS WNL AND INFUSING. CALLS APPROPRIATELY. CALL LIGHT WITHIN REACH. PATIENT IS LAYING IN BED CURRENTLY. THE PLAN IS TO CONTINUE TO MONITOR NAUSEA AND FORM A PLAN IF SHE CONTINUES TO NOT HAVE NAUSEA.
--- NOTE | 2020-11-06 16:46 | NUR ---
SHIFT SUMMARY PT A&O X4. GOOD DISPOSITION. CURRENTLY SITTING UP IN BED PAYING BILLS WITH VISITOR SITTING IN CHAIR BEDSIDE. SOME PAIN TODAY TX'D PER EMAR. OXYGEN SATURATION STABLE IN MID 90'S ON 2L NASAL CANNULA. PT STATES PASSING GAS THROUGHOUT THE DAY BUT STILL HAS DISTENTION IN LOWER MID ABD AREA. STILL NO SIGNIFICANT BOWEL MOVEMENT. OSTOMY C/D/I. PT TRANSFERS ON OWN TO RESTROOM. PT TOLERATED WALK DOWN HALLWAY TODAY WITH PORTABLE O2 ON 2L WELL.
--- NOTE | 2020-11-07 02:55 | NUR ---
SHIFT SUMMARY: SBO PATIENT IS ALERT AND ORIENTED X4 WHILE AWAKE. SHE HAS BEEN ASLEEP MAJORITY OF THE SHIFT BUT IS EASILY AROUSABLE. VS ARE WNL AND IS ON 2L NC WHICH IS HER BASELINE AT HOME. PAIN IS MANAGED WITH 1 PERCOCET. SHE DENIES NAUSEA AND VOMITING. SHE IS TOLERATING HER CLEARS DIET AND IS VOIDING URINE. HER OSTOMY HAS PRODUCED STOOL IN HER OSTOMY. CALLS APPROPRIATELY. CALL LIGHT WITHIN REACH. THE PLAN IS TO CONTINUE PAIN MANAGEMENT AND TO MONITOR FOR NAUSEA.
[2020-11-07 04:38] LABS: Hematocrit 30.8 % (33.0-51.0); Hemoglobin 9.7 g/dL (11.5-16.0); Mean Corpuscular HGB 32.3 pg (26.0-34.0); Mean Corpuscular HGB Conc 31.5 g/dL (31.5-36.5); Mean Corpuscular Volume 103 fL (80-100); Mean Platelet Volume 10.4 fL (9.1-12.4); Platelet Count 153 K/mm3 (150-400); RDW Coefficient Variation 15.5 % (11.7-14.2); White Blood Cell Count 3.55 K/mm3 (4.00-11.30)
[2020-11-07 04:59] LABS: Albumin, Blood 1.9 g/dL (3.4-5.0); Anion Gap 3 mmol/L (6-16); Blood Urea Nitrogen 5 mg/dL (8-24); Bun/Creatinine Ratio 8.1 (12.0-20.0); CO2, Blood 29 mmol/L (21-32); Calcium, Blood 7.6 mg/dL (8.5-10.1); Chloride, Blood 112 mmol/L (98-108); Creatinine, Blood 0.62 mg/dL (0.40-1.00); Glomerular Filtration Rate >60 (60-); Glucose, Blood 72 mg/dL (70-99); Phosphorus, Blood 2.3 mg/dL (2.5-4.9); Potassium, Blood 3.2 mmol/L (3.5-5.5); Sodium, Blood 144 mmol/L (136-145)
[2020-11-07 06:04] LABS: BAND PERCENT MAN 11 % (0-8); BASOPHILS PERCENT MAN 0 % (0-2); EOSINOPHILS ABSOLUTE MAN 0.03 K/mm3 (0.00-0.68); EOSINOPHILS PERCENT MAN 1 % (0-6); LYMPHOCYTES ABSOLUTE MAN 0.35 K/mm3 (0.84-5.20); LYMPHOCYTES PERCENT MAN 10 % (21-46); MONOCYTES PERCENT MAN 3 % (4-13); NEUTROPHILS ABSOLUTE MAN 3.05 K/mm3 (1.96-9.15); SEG NEUTROPHILS PERCENT MAN 75 % (41-73); TOTAL CELLS COUNTED 100
--- NOTE | 2020-11-07 18:41 | NUR ---
Spiritual care note: Maria R was tearful and anxious. She expressed frustration with lack of progress and no clear plan. she responded well to spiritual direction and theraputic listening. We prayed together for God's comfort at her request. She will benefit from continued emotional/spiritual support. I will continue to visit as schedule permits.
--- NOTE | 2020-11-07 19:19 | NUR ---
SHIFT SUMMARY PATIENT ALERT AND ORIENTED THROUGHOUT SHIFT. INDEPENDENT IN ROOM AND TO BATHROOM. REPORTS TENDERNESS AND MILD DISTENTION TO LOWER ABD. TOLERATING CLEAR LIQUID DIET. GOOD COLOSTOMY OUTPUT AND GAS. 2L O2 VIA NC IS BASLINE DUE TO HX COPD. POSSIBLE DISCHARGE HOME 11/08/2020 IF CONTINUING TO DO WELL. REPORT GIVEN TO NEXT SHIFT RN.
[2020-11-08 05:25] LABS: Hematocrit 29.3 % (33.0-51.0); Hemoglobin 9.2 g/dL (11.5-16.0); Mean Corpuscular HGB 31.9 pg (26.0-34.0); Mean Corpuscular HGB Conc 31.4 g/dL (31.5-36.5); Mean Corpuscular Volume 102 fL (80-100); Mean Platelet Volume 10.6 fL (9.1-12.4); Platelet Count 173 K/mm3 (150-400); RDW Coefficient Variation 15.6 % (11.7-14.2); RDW Standard Deviation 58.2 fL (35.1-46.3); Red Blood Cell Count 2.88 M/mm3 (3.80-5.20); White Blood Cell Count 4.49 K/mm3 (4.00-11.30)
[2020-11-08 05:39] LABS: Alanine Aminotransfer (ALT/SGP 15 U/L (12-78); Albumin/Globulin Ratio 0.8 (0.8-1.8); Alk Phos 58 U/L (50-136); Anion Gap 4 mmol/L (6-16); Aspartate Aminotrans (AST/SGOT 10 U/L (12-37); Bilirubin, Total 0.4 mg/dL (0.1-1.0); Blood Urea Nitrogen 3 mg/dL (8-24); Bun/Creatinine Ratio 5.3 (12.0-20.0); CO2, Blood 29 mmol/L (21-32); Calcium, Blood 7.7 mg/dL (8.5-10.1); Chloride, Blood 112 mmol/L (98-108); Creatinine, Blood 0.57 mg/dL (0.40-1.00); Globulin, Blood 2.6 g/dL (2.2-4.0); Glomerular Filtration Rate >60 (60-); Glucose, Blood 85 mg/dL (70-99); Magnesium, Blood 1.7 mg/dL (1.6-2.4); Phosphorus, Blood 2.6 mg/dL (2.5-4.9); Potassium, Blood 2.7 mmol/L (3.5-5.5); Sodium, Blood 145 mmol/L (136-145); Total Protein, Blood 4.6 g/dL (6.4-8.2)
[2020-11-08 05:54] LABS: BAND PERCENT MAN 14 % (0-8); BASOPHILS PERCENT MAN 0 % (0-2); EOSINOPHILS ABSOLUTE MAN 0.08 K/mm3 (0.00-0.68); EOSINOPHILS PERCENT MAN 2 % (0-6); LYMPHOCYTES PERCENT MAN 9 % (21-46); MONOCYTES ABSOLUTE MAN 0.31 K/mm3 (0.16-1.47); MONOCYTES PERCENT MAN 7 % (4-13); NEUTROPHILS ABSOLUTE MAN 3.68 K/mm3 (1.96-9.15); SEG NEUTROPHILS PERCENT MAN 68 % (41-73); TOTAL CELLS COUNTED 100
--- NOTE | 2020-11-08 06:18 | NUR ---
SHIFT SUMMARY S/P ADYNAMIC ILEUS, A/O X4, VSS, TOLERATING CLEAR DIET, GOOD OUTPUT VIA OSTOMY, VOIDING WELL, INDEPENDENT IN ROOM, MANAGES HER OWN OSTOMY SAVING OUTPUT IN BATHROOM FOR NURSING STAFF TO CHART, PAIN WELL CONTROLLED PER EMAR. NO ACUTE EVENTS THIS SHIFT, CALL LIGHT IN REACH, WILL CONTINUE TO MONITOR AND REPORT TO ONCOMING DAY RN.
--- NOTE | 2020-11-08 09:09 | NUR ---
SHIFT ASSESSMENT PT ALERT AND ORIENTED. PAIN MANGED WITH PO PAIN MEDICATION. PT SITTING UP FOR CLEAR LIQUID BREAKFAST. INCREASED ABD PAIN AFTER EATING. LUNG WOUNDS CLEAR IN ALL SORENSON BUT DIM IN THE BASES, HEART SOUNDS WNL, BOWEL SOUNDS PRESENT. PT IS STILL HAVING LIQUID OSTOMY OUTPUT AND SMALL AMOUNTS OF GAS. PT APPEARS SOMEWHAT WITHDRAWN. PT IS INDEPENDENT IN THE ROOM. SKIN IS PALE AND FRAGILE BUT INTACT. VSS. WILL CONTINUE TO MONITOR.
--- NOTE | 2020-11-08 10:17 | NUR ---
DR. NIRALI MO. DISCUSSED POSSIBLE NEED TO ACCESS MEDIPORT FOR PARENTERAL NUTRITION. ORDER PLACED FOR DIETARY CONSULT. WILL CONTINUE TO MONITOR.
--- NOTE | 2020-11-08 18:04 | NUR ---
SHIFT SUMMARY PT HAS BEEN IN PLEASENT MOOD THROUGHOUT SHIFT. PT IS A&O X4. 2L CONTINUOUS O2 DUE TO HX OF COPD. PT DID HAVE AN EPISODE OF "ROLLING" PAIN PER PT DESCRIPTION IN MIDDLE OF LOWER ABD. PT HAS OSTOMY TO RLQ AND IS INDEPENDENT W/ CARE. PT WILL PLACE OSTOMY CONTENT IN MEASURE DEVICE IN PERSONAL RESTROOM. PT IS TOLERATING A CLEAR LIQUID DIET. CALL LIGHT IS WITHIN REACH.
--- NOTE | 2020-11-08 18:05 | NUR ---
Provided supportive visit to Maria R, who reports relief that blockage has resolved. She is hopeful of regaining some of her engery and resilience. Maria R is appreciative of prayer and gentle spiritual direction. She admits she's been told that her cancer is incurable, but believes with continued chemo, she'll "have many more good years ahead." Nuclear Unit Operator services will remain available.
[2020-11-09 04:20] LABS: Hematocrit 32.2 % (33.0-51.0); Hemoglobin 10.2 g/dL (11.5-16.0); Mean Corpuscular HGB Conc 31.7 g/dL (31.5-36.5); Mean Corpuscular Volume 101 fL (80-100); Mean Platelet Volume 10.4 fL (9.1-12.4); Platelet Count 204 K/mm3 (150-400); RDW Coefficient Variation 15.8 % (11.7-14.2); RDW Standard Deviation 58.5 fL (35.1-46.3); Red Blood Cell Count 3.19 M/mm3 (3.80-5.20); White Blood Cell Count 3.07 K/mm3 (4.00-11.30)
[2020-11-09 04:51] LABS: Alanine Aminotransfer (ALT/SGP 16 U/L (12-78); Albumin, Blood 2.5 g/dL (3.4-5.0); Albumin/Globulin Ratio 0.9 (0.8-1.8); Alk Phos 68 U/L (50-136); Anion Gap 5 mmol/L (6-16); Aspartate Aminotrans (AST/SGOT 14 U/L (12-37); Bilirubin, Total 0.2 mg/dL (0.1-1.0); Blood Urea Nitrogen 5 mg/dL (8-24); Bun/Creatinine Ratio 9.4 (12.0-20.0); CO2, Blood 30 mmol/L (21-32); Calcium, Blood 8.1 mg/dL (8.5-10.1); Chloride, Blood 109 mmol/L (98-108); Creatinine, Blood 0.53 mg/dL (0.40-1.00); Globulin, Blood 2.9 g/dL (2.2-4.0); Glomerular Filtration Rate >60 (60-); Glucose, Blood 111 mg/dL (70-99); Phosphorus, Blood 2.6 mg/dL (2.5-4.9); Potassium, Blood 2.6 mmol/L (3.5-5.5); Sodium, Blood 144 mmol/L (136-145); Total Protein, Blood 5.4 g/dL (6.4-8.2); Triglycerides 121 mg/dL (30-160)
--- NOTE | 2020-11-09 04:56 | NUR ---
SHIFT SUMMARY LYING ON LEFT SIDE WITH EYES CLOSED, HAS RESTED OFF AND ON. CLINIIX WITH LIPIDS CONTINUES TO INFUSE TO RIGHT FA PIV. GOOD OUTPUT NOTED FROM COLOSTOMY. PT HAS BEEN SELF CARE WITH URINATION AND OSTOMY. BAG OVERDISTENSION AND SEPARATION OCCURED WHILE PT SLEPT. PT CLEANED AND LINEN CHANGE COMPLETED. NEW 2 1/4 2 PIECE OSTOMY PRODUCT PLACED WITH EASE. NO FURTHER SIGNIFICANT CHANGES NOTED THIS SHIFT. DENIES PAIN, DISCOMFORT, OR FURTHER NEEDS AT THIS TIME. SAFETY MEASURES IN PLACE. WILL CONTINUE TO MONITOR FOR CHANGES/NEEDS AND ADDRESS THEM THEY ARISE. WILL GIVE HAND OFF TO ONCOMING SHIFT USING SBAR DURING BEDSIDE REPORT.
--- NOTE | 2020-11-09 17:45 | NUR ---
SHIFT SUMMARY: PT A&O X4, VERY PLEASANT AND CALM. PAIN MANAGED WITH PO MEDS. PT SITTING UPRIGHT IN BED EATING FULL LIQUID DINNER IN WHICH SHE HAS TOLERATED WELL TODAY. PT VOIDING AND EMPTYING OSTOMY REGULARLY. STOMA C/D/I. REPORTS PAIN AT 4/10 TO MIDDLE ABDOMEN, HAS NOT REQUESTED PAIN MEDS SINCE EARLY THIS AM. NO ACUTE CHANGES THROUGHOUT SHIFT. VSS. WILL REPORT TO WALKER NIÑO RN.
[2020-11-10 04:53] LABS: Hematocrit 30.4 % (33.0-51.0); Hemoglobin 9.8 g/dL (11.5-16.0); Mean Corpuscular HGB 32.2 pg (26.0-34.0); Mean Corpuscular HGB Conc 32.2 g/dL (31.5-36.5); Mean Corpuscular Volume 100 fL (80-100); Mean Platelet Volume 10.4 fL (9.1-12.4); Platelet Count 217 K/mm3 (150-400); RDW Coefficient Variation 16.2 % (11.7-14.2); RDW Standard Deviation 57.6 fL (35.1-46.3); Red Blood Cell Count 3.04 M/mm3 (3.80-5.20); White Blood Cell Count 3.24 K/mm3 (4.00-11.30)
--- NOTE | 2020-11-10 04:57 | NUR ---
SHIFT SUMMARY PT IS A/O X4, IND IN ROOM. TOLERATING FULL LIQUID DIET AND VOIDING. OSTOMY IN PLACE TO LUQ WITH GOOD OUTPUT OVERNIGHT. PT MANAGES OSTOMY IND. PT HAS DENIED N/V AND PAIN THIS SHIFT. CLINIMIX INFUSING OVERNIGHT. PT USING 2L O2 NC WHICH IS BASELINE FOR HER. OTHERWISE NO ACUTE CHANGES. PT RESTING IN BED, CALL LIGHT IN REACH.
[2020-11-10 05:15] LABS: Albumin, Blood 2.3 g/dL (3.4-5.0); Anion Gap 5 mmol/L (6-16); Blood Urea Nitrogen 9 mg/dL (8-24); Bun/Creatinine Ratio 18.4 (12.0-20.0); CO2, Blood 29 mmol/L (21-32); Chloride, Blood 107 mmol/L (98-108); Creatinine, Blood 0.49 mg/dL (0.40-1.00); Glomerular Filtration Rate >60 (60-); Glucose, Blood 108 mg/dL (70-99); Magnesium, Blood 2.3 mg/dL (1.6-2.4); Phosphorus, Blood 2.8 mg/dL (2.5-4.9); Potassium, Blood 2.6 mmol/L (3.5-5.5); Sodium, Blood 141 mmol/L (136-145)
--- NOTE | 2020-11-10 18:14 | NUR ---
SHIFT SUMMARY PT A&OX4, VSS, INDEPENDENT TO BRP, SHOWERED TODAY, 2LNC BASELINE. PT DENIES PAIN AND N&V THIS SHIFT, OSTOMY WITH LARGE AMOUNT DARK BROWN/GREEN LIQUID OUT (PT MANAGES HERSELF), VOIDING WELL. MARIA EUGENIA PO REG DIET, DENIES N&V. WILL REPORT TO ONCOMING NOC RN.
[2020-11-11 04:53] LABS: BASOPHILS ABSOLUTE AUTO 0.02 K/mm3 (0.00-0.23); BASOPHILS PERCENT AUTO 1 % (0-2); EOSINOPHILS ABSOLUTE AUTO 0.07 K/mm3 (0.00-0.68); EOSINOPHILS PERCENT AUTO 3 % (0-6); Hematocrit 31.4 % (33.0-51.0); Hemoglobin 9.9 g/dL (11.5-16.0); Mean Corpuscular HGB 32.4 pg (26.0-34.0); Mean Corpuscular HGB Conc 31.5 g/dL (31.5-36.5); Mean Corpuscular Volume 103 fL (80-100); Mean Platelet Volume 10.5 fL (9.1-12.4); Platelet Count 239 K/mm3 (150-400); Red Blood Cell Count 3.06 M/mm3 (3.80-5.20); White Blood Cell Count 2.54 K/mm3 (4.00-11.30)
[2020-11-11 04:54] LABS: IMMATURE GRAN ABSOLUTE AUTO 0.11 K/mm3 (0.00-0.10); IMMATURE GRAN PERCENT AUTO 4 % (0-1); LYMPHOCYTES ABSOLUTE AUTO 0.53 K/mm3 (0.84-5.20); LYMPHOCYTES PERCENT AUTO 21 % (21-46); MONOCYTES ABSOLUTE AUTO 0.32 K/mm3 (0.16-1.47); MONOCYTES PERCENT AUTO 13 % (4-13); NEUTROPHILS ABSOLUTE AUTO 1.49 K/mm3 (1.96-9.15); NEUTROPHILS PERCENT AUTO 59 % (41-73)
--- NOTE | 2020-11-11 05:01 | NUR ---
SHIFT SUMMARY PT IS A/O X4, IND IN ROOM. TOLERATING PO INTAKE, VOIDING, AND HAVING GOOD OSTOMY OUTPUT. PT MANAGING OSTOMY IND. APPLIANCE CHANGED THIS SHIFT. PT C/O PAIN X1 AND WAS MEDICATED WITH PO PAIN MED. CLINIMIX INFUSING OVERNIGHT. PT IS RESTING AT THIS TIME, CALL LIGHT IN REACH. NO ACUTE CHANGES THIS SHIFT.
[2020-11-11 05:11] LABS: Alanine Aminotransfer (ALT/SGP 19 U/L (12-78); Albumin, Blood 2.6 g/dL (3.4-5.0); Albumin/Globulin Ratio 0.8 (0.8-1.8); Alk Phos 74 U/L (50-136); Anion Gap 3 mmol/L (6-16); Aspartate Aminotrans (AST/SGOT 18 U/L (12-37); Bilirubin, Direct <0.1 mg/dL (0.0-0.3); Bilirubin, Indirect Unable to Calculate mg/dL (0.1-0.7); Bilirubin, Total 0.3 mg/dL (0.1-1.0); Blood Urea Nitrogen 17 mg/dL (8-24); Bun/Creatinine Ratio 35.8 (12.0-20.0); CO2, Blood 28 mmol/L (21-32); Calcium, Blood 8.5 mg/dL (8.5-10.1); Chloride, Blood 109 mmol/L (98-108); Creatinine, Blood 0.48 mg/dL (0.40-1.00); Globulin, Blood 3.1 g/dL (2.2-4.0); Glomerular Filtration Rate >60 (60-); Glucose, Blood 105 mg/dL (70-99); Magnesium, Blood 2.4 mg/dL (1.6-2.4); Phosphorus, Blood 3.1 mg/dL (2.5-4.9); Potassium, Blood 3.7 mmol/L (3.5-5.5); Sodium, Blood 140 mmol/L (136-145); Total Protein, Blood 5.7 g/dL (6.4-8.2)
--- NOTE | 2020-11-11 16:08 | NUR ---
SHIFT SUMMARY PT A&OX4, VSS, 2LNC (BASELLINE). OSTOMY OUTPUT BROWN/GREEN LIQUID WITH SOME FORMED CHUNKS AND LARGE AMOUNT OF FLATUS OUT THIS SHIFT. VOIDING WELL, INDEPENDENT IN ROOM, TO BRP, IN HALLWAY. MARIA EUGENIA REG DIET; IV CLINIMIX AND LIPIDS INFUSING. WILL REPORT TO ONCOMING SALINAS RN.
--- NOTE | 2020-11-11 21:02 | NUR ---
ASSUMED CARE AT 1900. PT A/O X4, IND IN ROOM. STATES SHE HAS HAD A LOT OF GAS IN OSTOMY TODAY AND INCREASED ABD DISCOMFORT R/T THIS. MED WITH SIMETHICONE FOR GAS. REGLAN ALSO SCHEDULED TO BE GIVEN Q8. PT STATES SHE HAS NOT HAD ANY NAUSEA OR EMESIS WITH INCREASED PO INTAKE TODAY. PT RESTING AT THIS TIME, DENIES FURTHER NEEDS.
[2020-11-12 04:38] LABS: Hematocrit 34.5 % (33.0-51.0); Mean Corpuscular HGB 32.9 pg (26.0-34.0); Mean Corpuscular HGB Conc 31.9 g/dL (31.5-36.5); Mean Corpuscular Volume 103 fL (80-100); Mean Platelet Volume 10.5 fL (9.1-12.4); Platelet Count 279 K/mm3 (150-400); RDW Coefficient Variation 16.7 % (11.7-14.2); RDW Standard Deviation 62.4 fL (35.1-46.3); Red Blood Cell Count 3.34 M/mm3 (3.80-5.20); White Blood Cell Count 3.25 K/mm3 (4.00-11.30)
[2020-11-12 05:05] LABS: Alanine Aminotransfer (ALT/SGP 18 U/L (12-78); Albumin, Blood 2.6 g/dL (3.4-5.0); Albumin/Globulin Ratio 0.8 (0.8-1.8); Alk Phos 86 U/L (50-136); Anion Gap 2 mmol/L (6-16); Aspartate Aminotrans (AST/SGOT 22 U/L (12-37); Bilirubin, Total 0.4 mg/dL (0.1-1.0); Blood Urea Nitrogen 22 mg/dL (8-24); Bun/Creatinine Ratio 42.1 (12.0-20.0); CO2, Blood 31 mmol/L (21-32); Calcium, Blood 8.7 mg/dL (8.5-10.1); Chloride, Blood 103 mmol/L (98-108); Creatinine, Blood 0.52 mg/dL (0.40-1.00); Globulin, Blood 3.3 g/dL (2.2-4.0); Glomerular Filtration Rate >60 (60-); Glucose, Blood 93 mg/dL (70-99); Magnesium, Blood 2.3 mg/dL (1.6-2.4); Phosphorus, Blood 2.8 mg/dL (2.5-4.9); Potassium, Blood 4.3 mmol/L (3.5-5.5); Sodium, Blood 136 mmol/L (136-145); Total Protein, Blood 5.9 g/dL (6.4-8.2)
[2020-11-12 05:20] LABS: BAND PERCENT MAN 5 % (0-8); BASOPHILS ABSOLUTE MAN 0.03 K/mm3 (0.00-0.23); BASOPHILS PERCENT MAN 1 % (0-2); EOSINOPHILS ABSOLUTE MAN 0.09 K/mm3 (0.00-0.68); EOSINOPHILS PERCENT MAN 3 % (0-6); LYMPHOCYTES % ATYPICAL MANUAL 1 % (0-0); LYMPHOCYTES ABSOLUTE MAN 0.71 K/mm3 (0.84-5.20); LYMPHOCYTES PERCENT MAN 21 % (21-46); METAMYELOCYTE ABSOLUTE MAN 0.06 K/mm3 (0.00-0.00); METAMYELOCYTE PERCENT MAN 2 % (0-0); MONOCYTES ABSOLUTE MAN 0.42 K/mm3 (0.16-1.47); MONOCYTES PERCENT MAN 13 % (4-13); MYELOCYTE ABSOLUTE MAN 0.03 K/mm3 (0.00-0.00); MYELOCYTE PERCENT MAN 1 % (0-0); NEUTROPHILS ABSOLUTE MAN 1.88 K/mm3 (1.96-9.15); SEG NEUTROPHILS PERCENT MAN 53 % (41-73); TOTAL CELLS COUNTED 100
--- NOTE | 2020-11-12 05:57 | NUR ---
SHIFT SUMMARY PT IS A/O X4, PLEASANT AND COOPERATIVE, IND IN ROOM. TOLERATING PO INTAKE AND VOIDING. PT REPORTS HAVING A LOT OF GAS IN OSTOMY OVERNIGHT, HOWEVER SHE HAS HAD LESS OUTPUT THAN PREVIOUS SHIFTS. PT IS MANAGING OSTOMY IND. PT USING 2L O2 NC, WHICH IS BASELINE FOR HER. CLINIMIX INFUSING OVERNIGHT. PT RESTING IN BED, CALL LIGHT IN REACH.
[2020-11-12] MEDS ORDERED: METO5A PO (12:52)
[2020-11-12] MEDS ORDERED: POLYETHYLENE G500 G1 PO (12:53)
[2020-11-12] MEDS ORDERED: SIME80CH PO (12:53)
[2020-11-12] MEDS ORDERED: CLON.5 PO (12:54)
[2020-11-12] MEDS ORDERED: VISBIOME 112.51 EACH PO (12:56)
[2020-11-12] MEDS ORDERED: Erythromycin250 MG PO (13:03)
[2020-11-12] MEDS ORDERED: FERSU300 PO (13:05)
[2020-11-12] MEDS ORDERED: ASCO500 PO (13:05)
[2020-11-12] MEDS ORDERED: ACTIVATED CHARCOAL PO (13:13)
--- NOTE | 2020-11-12 14:26 | NUR ---
[facility] AND THEY WILL BE ABLE TO PERFORM THE FOLLOW UP LAB DRAW. MESSAGE LEFT WITH PT'S PCP OFFICE FOR DR. ROBBINS REGARDING NEED FOR FOLLOW UP IN 72 HOURS OF DISCHARGE AND NEED FOR REFERRAL FOR GI CONSULT.
--- NOTE | 2020-11-12 15:22 | NUR ---
DR. HDZ'S OFFICE WAS CONTACTED FOR FOLLOW-UP APPOINTMENT FOR PT. THE OFFICE REPORTED THEY WOULD CALL PT TO ARRANGE A FOLLOW-UP.
--- NOTE | 2020-11-12 16:21 | NUR ---
DISCHARGE PT A&O X4. PT GIVEN VERBAL AND WRITTEN DISCHARGE INFO REGARDING HOME CARE AND NEW HOME MEDS. NURSE FIGUEROA CALLED AND LEFT A MESSAGE REGARDING A FOLLOW UP APPT W/ PCP. PT GIVEN VERBAL DIRECTION TO FOLLOW UP W/ PCP AND REQUEST GI CONSULT. PT SISTER WAS AT BEDSIDE DURING DISCHARGE. PT VERBALIZED UNDERSTANDING OF DISCHARGE DIRECTION AND HAD NO FURTHER QUESTIONS.
--- NOTE | 2020-11-12 16:25 | NUR ---
DISCHARGE PT PROVIDED WITH WRITTEN AND VERBAL DISCHARGE INSTRUCTIONS, SHE REPORTED UNDERSTANDING. ARRANGEMENTS MADE BY CARE MANAGMENT FOR HOME HEALTH AND FOLLOW-UP LAB DRAWS. MESSAGE LEFT WITH PT'S PCP OFFICE FOR FOLLOW UP IN [address] HDZ'S OFFICE CONTACTED FOR REFERRAL. PT ALERT, ORIENTED AND PAIN MANAGED AT TIME OF DISCHARGE. NEW MEDICATIONS FAXED TO PT'S PHARMACY. SCRIPTS FOR PAIN AND NAUSEA MEDICATION PROVIDED. PT ESCORTED OUT IN W/C BY DEONTE STUDENT NURSE.
== END 2020-11-12 16:15 | disposition home health service (06) | DRG 388 ==
LOC: ER 17:08 → SURS 11-02 01:29 → ERHOLD 11-02 01:29 → SURS 11-02 02:02
PROVIDERS: Family Medicine; Internal Medicine; Pharmacist; Physician Assistant; ADMIT Internal Medicine
DX: K56.0 Paralytic ileus (principal); E43 Unspecified severe protein-calorie malnutrition; C78.00 Secondary malignant neoplasm of unspecified lung; C78.7 Secondary malignant neoplasm of liver and intrahepatic bile duct; C79.00 Secondary malignant neoplasm of unspecified kidney and renal pelvis; Z66 Do not resuscitate; K50.90 Crohn's disease, unspecified, without complications; Z68.1 Body mass index [BMI] 19.9 or less, adult; J96.11 Chronic respiratory failure with hypoxia; E87.6 Hypokalemia; D70.9 Neutropenia, unspecified; J44.9 Chronic obstructive pulmonary disease, unspecified; F32.9 Major depressive disorder, single episode, unspecified; F41.9 Anxiety disorder, unspecified; G25.81 Restless legs syndrome; Z93.3 Colostomy status; Z79.899 Other long term (current) drug therapy; Z99.81 Dependence on supplemental oxygen; Z90.49 Acquired absence of other specified parts of digestive tract; Z85.048 Personal history of other malignant neoplasm of rectum, rectosigmoid junction, and anus; Z87.891 Personal history of nicotine dependence; Z92.21 Personal history of antineoplastic chemotherapy
CPT/HCPCS: 36415; 74176; 74177; 80048; 80053; 80069; 80076; 80202; 81001; 82947; 83735; 84100; 84443; 84478; 85025; 85027; 87040; 87086; 93005; 93010; 94640; 94760; 96365-59; 96366; 96367; 96375; 97110; 97161; 97165; 97530; 99285-25; A9270; C9113; J0696; J1650; J2405; J2543; J2765; J3010; J3370; J3480; J7030; J7060; Q9967

== ENCOUNTER 2020-11-21 17:48 | Emergency (ER) | payer MEDICARE, OTHER ==
[~2020-11-21] VITALS: Ht 160 cm; Wt 36.3 kg
[~2020-11-21 17:48] MED LIST changes: +ACTIVATED CHARCOAL PO; +ASCO500 PO; +DILT120 PO; +ESCI10 PO; +Erythromycin250 MG PO; +FERSU300 PO; +FLUT1DIS5 INH; +METO5A PO; +POLYETHYLENE G500 G1 PO; +SIME80CH PO; +TIOT18 INH; +VISBIOME 112.51 EACH PO; +Ventolin/Prove6.7 GM INH
[2020-11-21 18:58] LABS: BASOPHILS PERCENT AUTO 1 % (0-2); EOSINOPHILS ABSOLUTE AUTO 0.11 K/mm3 (0.00-0.68); EOSINOPHILS PERCENT AUTO 1 % (0-6); Hematocrit 35.9 % (33.0-51.0); Hemoglobin 11.5 g/dL (11.5-16.0); IMMATURE GRAN ABSOLUTE AUTO 0.12 K/mm3 (0.00-0.10); IMMATURE GRAN PERCENT AUTO 1 % (0-1); LYMPHOCYTES ABSOLUTE AUTO 0.71 K/mm3 (0.84-5.20); LYMPHOCYTES PERCENT AUTO 8 % (21-46); MONOCYTES ABSOLUTE AUTO 0.55 K/mm3 (0.16-1.47); MONOCYTES PERCENT AUTO 6 % (4-13); Mean Corpuscular HGB 33.2 pg (26.0-34.0); Mean Corpuscular Volume 104 fL (80-100); Mean Platelet Volume 10.3 fL (9.1-12.4); NEUTROPHILS ABSOLUTE AUTO 7.23 K/mm3 (1.96-9.15); NEUTROPHILS PERCENT AUTO 82 % (41-73); Platelet Count 369 K/mm3 (150-400); RDW Coefficient Variation 15.4 % (11.7-14.2); RDW Standard Deviation 58.8 fL (35.1-46.3); Red Blood Cell Count 3.46 M/mm3 (3.80-5.20); White Blood Cell Count 8.82 K/mm3 (4.00-11.30)
[2020-11-21 19:12] LABS: Alanine Aminotransfer (ALT/SGP 27 U/L (12-78); Albumin, Blood 3.3 g/dL (3.4-5.0); Albumin/Globulin Ratio 0.9 (0.8-1.8); Alk Phos 94 U/L (50-136); Anion Gap 3 mmol/L (6-16); Aspartate Aminotrans (AST/SGOT 21 U/L (12-37); Bilirubin, Total 0.2 mg/dL (0.1-1.0); Blood Urea Nitrogen 20 mg/dL (8-24); Bun/Creatinine Ratio 42.4 (12.0-20.0); CO2, Blood 36 mmol/L (21-32); Calcium, Blood 9.1 mg/dL (8.5-10.1); Chloride, Blood 102 mmol/L (98-108); Creatinine, Blood 0.47 mg/dL (0.40-1.00); Globulin, Blood 3.5 g/dL (2.2-4.0); Glomerular Filtration Rate >60 (60-); Glucose, Blood 134 mg/dL (70-99); Potassium, Blood 3.2 mmol/L (3.5-5.5); Sodium, Blood 141 mmol/L (136-145); Total Protein, Blood 6.8 g/dL (6.4-8.2)
[2020-11-21 21:23] LABS: Source, Urine Clean Catch
[2020-11-21 21:26] LABS: Bilirubin, Urine Neg (Neg); Blood, Urine Neg (Neg); Glucose Qualitative, Urine Neg (Neg); Ketones, Urine Neg (Neg); Leukocyte Esterase, Urine 1+ (Neg); Nitrite, Urine Neg (Neg); Protein, Urine 1+ (Neg); Urobilinogen, Urine NORM (Normal)
[2020-11-21 21:28] LABS: Appearance, Urine Hazy (Clear); Color, Urine Yellow (P-Yellow)
[2020-11-21 21:33] LABS: Amorphous Heavy (0-Heavy); Bacteria Mod /hpf; Red Blood Cells, Urine Not Seen /hpf (0-2); Squamous Epithelial Cells Not Seen /hpf (Few)
== END 2020-11-21 21:44 | disposition home or self-care (01) ==
LOC: ER 17:48
PROVIDERS: Emergency Medicine
DX: R10.9 Unspecified abdominal pain (principal); E87.6 Hypokalemia; J44.9 Chronic obstructive pulmonary disease, unspecified; Z85.048 Personal history of other malignant neoplasm of rectum, rectosigmoid junction, and anus; Z79.899 Other long term (current) drug therapy
CPT/HCPCS: 80053; 81001; 83690; 85025; 87086; 99284; A9270

== ENCOUNTER → 2021-01-27 | Outpatient (CLI) | payer MEDICARE, OTHER ==
[2021-01-27 10:32] LABS: BASOPHILS ABSOLUTE AUTO 0.03 K/mm3 (0.00-0.23); BASOPHILS PERCENT AUTO 0 % (0-2); EOSINOPHILS ABSOLUTE AUTO 0.02 K/mm3 (0.00-0.68); EOSINOPHILS PERCENT AUTO 0 % (0-6); Hemoglobin 12.1 g/dL (11.5-16.0); IMMATURE GRAN ABSOLUTE AUTO 0.02 K/mm3 (0.00-0.10); IMMATURE GRAN PERCENT AUTO 0 % (0-1); LYMPHOCYTES ABSOLUTE AUTO 0.59 K/mm3 (0.84-5.20); LYMPHOCYTES PERCENT AUTO 9 % (21-46); MONOCYTES PERCENT AUTO 7 % (4-13); Mean Corpuscular HGB 32.5 pg (26.0-34.0); Mean Corpuscular HGB Conc 31.8 g/dL (31.5-36.5); Mean Corpuscular Volume 102 fL (80-100); Mean Platelet Volume 10.4 fL (9.1-12.4); NEUTROPHILS ABSOLUTE AUTO 5.66 K/mm3 (1.96-9.15); NEUTROPHILS PERCENT AUTO 83 % (41-73); Platelet Count 168 K/mm3 (150-400); RDW Coefficient Variation 13.2 % (11.7-14.2); Red Blood Cell Count 3.72 M/mm3 (3.80-5.20); White Blood Cell Count 6.82 K/mm3 (4.00-11.30)
[2021-01-27 10:44] LABS: Alanine Aminotransfer (ALT/SGP 42 U/L (12-78); Albumin, Blood 3.5 g/dL (3.4-5.0); Albumin/Globulin Ratio 0.9 (0.8-1.8); Alk Phos 91 U/L (40-126); Anion Gap 6 mmol/L (6-16); Aspartate Aminotrans (AST/SGOT 21 U/L (12-37); Bilirubin, Total 0.4 mg/dL (0.1-1.0); Blood Urea Nitrogen 13 mg/dL (8-24); Bun/Creatinine Ratio 21.3 (12.0-20.0); CO2, Blood 30 mmol/L (21-32); Calcium, Blood 8.7 mg/dL (8.5-10.1); Chloride, Blood 106 mmol/L (98-108); Creatinine, Blood 0.61 mg/dL (0.40-1.00); Globulin, Blood 3.7 g/dL (2.2-4.0); Glomerular Filtration Rate >60 (60-); Glucose, Blood 100 mg/dL (70-99); Potassium, Blood 4.4 mmol/L (3.5-5.5); Sodium, Blood 142 mmol/L (136-145); Total Protein, Blood 7.2 g/dL (6.4-8.2)
== END | disposition home or self-care (01) ==
LOC: LAB EV 10:28 → LAB SHORT 10:28
PROVIDERS: Physician Assistant
DX: J44.9 Chronic obstructive pulmonary disease, unspecified (principal)
CPT/HCPCS: 80053; 85025

== ENCOUNTER 2021-05-29 04:38 | Day surgery (SDC) | payer MEDICARE, OTHER ==
[~2021-05-29 04:38] MED LIST changes: +ALEN10 PO; +Ativan1 MG PO; +CALCIUM; +CARTIA XT PO; +HYDHCL25 PO; +QUET25; +VITAMIN D325 MC3
--- NOTE | 2021-05-29 10:59 | NUR ---
REMOVED 14 F KOROMA CATHETER W/O PROBLEMS. PT STS SHE IS RELIEVED TO HAVE IT OUT. PT VERBALIZED THAT SHE WOULD CALL MD IF URINARY RETENTION RETURNED.
[2021-05-29] MEDS ORDERED: POTA10T PO (11:02)
[2021-05-29] MEDS ORDERED: METR500 PO (11:03)
[2021-05-29] MEDS ORDERED: GLUCHON PO (11:14)
[2021-05-29] MEDS ORDERED: ACET325 PO (11:17)
[2021-05-29] MEDS ORDERED: MULVITA PO (11:18)
[2021-05-29] MEDS ORDERED: PROAIR RESPICL90 MCG INH (11:20)
== END 2021-05-29 10:35 | disposition home or self-care (01) ==
LOC: ATC 04:38
DX: R33.8 Other retention of urine (principal); C20 Malignant neoplasm of rectum; Z87.891 Personal history of nicotine dependence
CPT/HCPCS: 99212

== ENCOUNTER 2021-06-17 06:45 | Emergency (ER) | payer MEDICARE, OTHER ==
[~2021-06-17] VITALS: Ht 160 cm; Wt 36.3 kg
[~2021-06-17 06:45] MED LIST changes: +ACET325 PO; +METR500 PO; +MULVITA PO; +POTA10T PO; +PROAIR RESPICL90 MCG INH
[2021-06-17 08:33] LABS: Source, Urine Catheter
[2021-06-17 08:45] LABS: Appearance, Urine Clear (Clear); Bilirubin, Urine Neg (Neg); Blood, Urine Neg (Neg); Color, Urine Yellow (P-Yellow); Glucose Qualitative, Urine Neg (Neg); Ketones, Urine Neg (Neg); Leukocyte Esterase, Urine Neg (Neg); Nitrite, Urine Neg (Neg); Protein, Urine Neg (Neg); Urobilinogen, Urine NORM (Normal); pH, Urine 6.5 (5.0-8.0)
== END 2021-06-17 09:42 | disposition home or self-care (01) ==
LOC: ER 06:45
PROVIDERS: Student in an Organized Health Care Education/Training Program
DX: R14.0 Abdominal distension (gaseous) (principal); R30.0 Dysuria; J44.9 Chronic obstructive pulmonary disease, unspecified; Z79.899 Other long term (current) drug therapy
CPT/HCPCS: 51798; 81003; 99283

== ENCOUNTER 2021-06-23 11:08 | Emergency (ER) | payer MEDICARE, OTHER ==
[~2021-06-23] VITALS: Ht 160 cm; Wt 37.2 kg
[2021-06-23] MEDS ORDERED: VANCOCIN HCL125 MG PO (12:18)
== END 2021-06-23 14:30 | disposition home or self-care (01) ==
LOC: ER 11:08
DX: A04.72 Enterocolitis due to Clostridium difficile, not specified as recurrent (principal); J44.9 Chronic obstructive pulmonary disease, unspecified; Z87.891 Personal history of nicotine dependence
CPT/HCPCS: 96374; 99284; A9270; J7120

== ENCOUNTER 2021-09-05 07:58 | Inpatient (IN) | payer MEDICARE, OTHER ==
[~2021-09-05] VITALS: Ht 160 cm; Wt 37.2 kg
[~2021-09-05 07:58] MED LIST changes: -ALEN10 PO; -CALCIUM; +CALCIUM 600 +1 EA11 PO; -POTA10T PO; +Potassium Chlo20 ME1 PO; +VANCOCIN HCL125 MG PO; -VITAMIN D325 MC3; +VITAMIN D325 MC3 PO
[2021-09-05 09:06] LABS: BASOPHILS ABSOLUTE AUTO 0.02 K/mm3 (0.00-0.23); BASOPHILS PERCENT AUTO 1 % (0-2); EOSINOPHILS ABSOLUTE AUTO 0.07 K/mm3 (0.00-0.68); EOSINOPHILS PERCENT AUTO 2 % (0-6); Hematocrit 38.2 % (33.0-51.0); Hemoglobin 12.4 g/dL (11.5-16.0); IMMATURE GRAN ABSOLUTE AUTO 0.01 K/mm3 (0.00-0.10); IMMATURE GRAN PERCENT AUTO 0 % (0-1); LYMPHOCYTES ABSOLUTE AUTO 0.39 K/mm3 (0.84-5.20); LYMPHOCYTES PERCENT AUTO 9 % (21-46); MONOCYTES PERCENT AUTO 2 % (4-13); Mean Corpuscular HGB 32.5 pg (26.0-34.0); Mean Corpuscular HGB Conc 32.5 g/dL (31.5-36.5); Mean Corpuscular Volume 100 fL (80-100); Mean Platelet Volume 9.8 fL (9.1-12.4); NEUTROPHILS ABSOLUTE AUTO 3.57 K/mm3 (1.96-9.15); NEUTROPHILS PERCENT AUTO 86 % (41-73); Platelet Count 228 K/mm3 (150-400); RDW Coefficient Variation 13.3 % (11.7-14.2); RDW Standard Deviation 48.3 fL (35.1-46.3); Red Blood Cell Count 3.82 M/mm3 (3.80-5.20); White Blood Cell Count 4.16 K/mm3 (4.00-11.30)
[2021-09-05 09:23] LABS: Alanine Aminotransfer (ALT/SGP 29 U/L (12-78); Albumin, Blood 3.7 g/dL (3.4-5.0); Albumin/Globulin Ratio 1.4 (0.8-1.8); Alk Phos 87 U/L (50-136); Anion Gap 4 mmol/L (6-16); Aspartate Aminotrans (AST/SGOT 24 U/L (12-37); Bilirubin, Total 0.7 mg/dL (0.1-1.0); Blood Urea Nitrogen 16 mg/dL (8-24); Bun/Creatinine Ratio 32.4 (12.0-20.0); CO2, Blood 36 mmol/L (21-32); Calcium, Blood 9.2 mg/dL (8.5-10.1); Chloride, Blood 99 mmol/L (98-108); Creatinine, Blood 0.49 mg/dL (0.40-1.00); Globulin, Blood 2.7 g/dL (2.2-4.0); Glomerular Filtration Rate >60 (60-); Glucose, Blood 91 mg/dL (70-99); Potassium, Blood 3.6 mmol/L (3.5-5.5); Sodium, Blood 139 mmol/L (136-145); Total Protein, Blood 6.4 g/dL (6.4-8.2)
--- NOTE | 2021-09-05 18:20 | NUR ---
PATIENT CURRENTLY RESTING IN BED WITH EYES CLOSED. NO SIGNS OR SYMPTOMS ACUTE DISTRESS NOTED. CALL LIGHT IN EASY REACH. ABLE TO MAKE NEEDS AND WANTS KNOWN. NGT TO RIGHT NARE TO LIS, DRAINGING CLEAR YELLOW DRAINAGE, NO OUTPUT IN OSTOMY THIS FAR TODAY. NO COMPLAINTS OF PAIN AT THIS TIME. MEDICATED FOR PAIN PER ORDERS. WILL MONITOR.
[2021-09-06 04:24] LABS: BASOPHILS ABSOLUTE AUTO 0.02 K/mm3 (0.00-0.23); BASOPHILS PERCENT AUTO 1 % (0-2); EOSINOPHILS ABSOLUTE AUTO 0.11 K/mm3 (0.00-0.68); EOSINOPHILS PERCENT AUTO 3 % (0-6); Hematocrit 37.4 % (33.0-51.0); Hemoglobin 11.9 g/dL (11.5-16.0); IMMATURE GRAN ABSOLUTE AUTO 0.01 K/mm3 (0.00-0.10); IMMATURE GRAN PERCENT AUTO 0 % (0-1); LYMPHOCYTES PERCENT AUTO 15 % (21-46); MONOCYTES ABSOLUTE AUTO 0.09 K/mm3 (0.16-1.47); MONOCYTES PERCENT AUTO 3 % (4-13); Mean Corpuscular HGB 32.5 pg (26.0-34.0); Mean Corpuscular HGB Conc 31.8 g/dL (31.5-36.5); Mean Corpuscular Volume 102 fL (80-100); Mean Platelet Volume 9.7 fL (9.1-12.4); NEUTROPHILS ABSOLUTE AUTO 2.58 K/mm3 (1.96-9.15); NEUTROPHILS PERCENT AUTO 78 % (41-73); Platelet Count 202 K/mm3 (150-400); RDW Coefficient Variation 13.2 % (11.7-14.2); RDW Standard Deviation 48.9 fL (35.1-46.3); Red Blood Cell Count 3.66 M/mm3 (3.80-5.20); White Blood Cell Count 3.31 K/mm3 (4.00-11.30)
[2021-09-06 04:38] LABS: Alanine Aminotransfer (ALT/SGP 24 U/L (12-78); Albumin/Globulin Ratio 1.2 (0.8-1.8); Alk Phos 86 U/L (50-136); Anion Gap 4 mmol/L (6-16); Aspartate Aminotrans (AST/SGOT 18 U/L (12-37); Bilirubin, Total 0.7 mg/dL (0.1-1.0); Blood Urea Nitrogen 20 mg/dL (8-24); Bun/Creatinine Ratio 38.4 (12.0-20.0); CO2, Blood 32 mmol/L (21-32); Calcium, Blood 8.4 mg/dL (8.5-10.1); Chloride, Blood 104 mmol/L (98-108); Creatinine, Blood 0.52 mg/dL (0.40-1.00); Globulin, Blood 2.4 g/dL (2.2-4.0); Glomerular Filtration Rate >60 (60-); Glucose, Blood 81 mg/dL (70-99); Magnesium, Blood 2.7 mg/dL (1.6-2.4); Sodium, Blood 140 mmol/L (136-145); Total Protein, Blood 5.4 g/dL (6.4-8.2)
--- NOTE | 2021-09-06 05:03 | NUR ---
SHIFT SUMMARY: PT IN BED AAOX4.VS WNL WITH NO SIGNS OF DISTRESS NOTED. NGT TO RIGHT NARES TO LOW WALL SUCTION INTERMITTENT. MEDPORT MIDLINE UPPER CHEST PATENT WITH LR INFUSING AT 100ML/HR. TOLERATING WELL. BASE OF LUNGS WITH DIMINISHED BREATH SOUNDS. O2 AT 2L VIA NC. COLOSTOMY BAG IN PLACE WITH NO DRAINAGE PRESENT. PT ON SIDE COMMODE VOIDED WELL. PT COMPLAINED OF PAIN MEDICATED PER EMAR TOLERATED WELL. WILL CONTINUE TO MONITOR AND MAINTAIN ALL PRECAUTIONS.
--- NOTE | 2021-09-06 16:25 | NUR ---
LARGE AMT OF LIQ STOOL FROM OSTOMY AT ABOUT 1400. THIS RN AND BENCH CHEMIST, MAURISIO IN ROOM TO CLEAN PT UP AND APPLY NEW OSTOMY BAG. DR. JIMENEZ MADE AWARE. PT REPORTS DECREASED PAIN AT ABD AND THERE IS LESS DISTENTION, STOMA WNL. NGT DC'D AT ABOUT 1615 PER ORDER, WILL CTM.
--- NOTE | 2021-09-06 16:47 | NUR ---
SUMMARY: NO ACUTE CHANGE TODAY. SEE PREVIOUS NOTE. VSS, A/O, PT USING CALL LIGHT. PT ABLE TO TOLERATE ICE CHIPS AND SIPS TONIGHT, HAS DENIED N/V. SMALL AMTS OF LIQ BROWN STOOL CONTINUE TO DRAIN FROM OSTOMY. PT EMPTIES ON HER OWN. PT MEDICATED FOR ABD PAIN PRN, SEE EMAR. DOES REPORT FEELING BETTER OVERALL. WILL CTM AND REPORT TO SALINAS CAR.
--- NOTE | 2021-09-07 06:53 | NUR ---
SHIFT SUMMARY: PT IN BED AAOX4. VS WNL WITH NO SIGNS OF DISTRESS NOTED. COLOSTOMY IN PLACE WITH OUTPUT. MEDPORT IN PLACE PATENT, IV SITE PATENT FLUIDS INFUSING ORDERED TOLERATED WELL. NC AT 2L. PT COMPLAIN ANXIIETY MEDICATED PER EMAR. MONITORING AND MAINTAINING ALL PRECAUTIONS.
--- NOTE | 2021-09-07 15:25 | NUR ---
PATIENT TOLERATE CLEAR LIQUIDS AND REG DIET FOR LUNCH TODAY. HAS HAD APPROX 500CC OUT COLOSTOMY. DENIES NAUSEA OR PAIN.
--- NOTE | 2021-09-07 16:35 | NUR ---
Pt. discharged to home. dc instructions explained and pt. verbalize understanding. sister here to take pt. home. Voices no complaints, tolerating po, colostomy with output, loose stool. belongings sent with pt.-w/c to exit. Verbalize relief of anxiety with ativan given earlier.
--- NOTE | 2021-09-07 16:52 | NUR ---
pt. did refuse to have port on right chest wall de-accessed. Very adamant about leaving it accessed and states "i have an appt. soon for chemo". flushed with NS, flushes easily, and then flush with Heparin as per Destiny for mediport flush. Dressing intact.
[2021-09-15] MEDS ORDERED: AZIT250 PO (17:30)
[2021-09-15] MEDS ORDERED: PRED20 PO (17:30)
[2021-09-15] MEDS ORDERED: TAMS.4ER PO (20:25)
[2021-09-18] MEDS ORDERED: ROBITUSSIN100 MG/5 M PO (13:28)
[2021-09-18] MEDS ORDERED: LEVOFLOXACIN500 M1 PO (13:28)
== END 2021-09-07 16:30 | disposition home or self-care (01) | DRG 388 ==
LOC: ER 07:58 → SURS 12:33
PROVIDERS: Nurse Practitioner Acute Care; Physician Assistant; ADMIT Internal Medicine
DX: K56.609 Unspecified intestinal obstruction, unspecified as to partial versus complete obstruction (principal); E43 Unspecified severe protein-calorie malnutrition; Z68.1 Body mass index [BMI] 19.9 or less, adult; C20 Malignant neoplasm of rectum; K94.09 Other complications of colostomy; Z53.29 Procedure and treatment not carried out because of patient's decision for other reasons; R63.4 Abnormal weight loss; G25.81 Restless legs syndrome; K59.00 Constipation, unspecified; J44.9 Chronic obstructive pulmonary disease, unspecified; Z66 Do not resuscitate; F41.8 Other specified anxiety disorders; Z85.048 Personal history of other malignant neoplasm of rectum, rectosigmoid junction, and anus; Z90.49 Acquired absence of other specified parts of digestive tract; Z99.81 Dependence on supplemental oxygen; Z98.890 Other specified postprocedural states; Z79.899 Other long term (current) drug therapy
CPT/HCPCS: 36415; 71045; 74176; 74177; 74250; 80053; 83690; 83735; 85025; 94640; 94664; 94760; 96374-59; 99285-25; J1170; J1642; J2060; J3010; J7120; Q9967

== ENCOUNTER 2022-01-03 06:16 | Inpatient (IN) | payer MEDICARE, OTHER ==
[~2022-01-03] VITALS: Ht 160 cm; Wt 36.3 kg
[~2022-01-03 06:16] MED LIST changes: +AZIT250 PO; +LEVOFLOXACIN500 M1 PO; +ROBITUSSIN100 MG/5 M PO; +TAMS.4ER PO
[2022-01-03 07:06] LABS: Albumin, Blood 3.3 g/dL (3.4-5.0); Albumin/Globulin Ratio 1.2 (0.8-1.8); Bilirubin, Total 0.4 mg/dL (0.1-1.0); Bun/Creatinine Ratio 36.2 (12.0-20.0); Creatinine, Blood 0.47 mg/dL (0.40-1.00); Globulin, Blood 2.8 g/dL (2.2-4.0); Potassium, Blood 3.5 mmol/L (3.5-5.5); Total Protein, Blood 6.1 g/dL (6.4-8.2)
[2022-01-03 07:49] LABS: BASOPHILS ABSOLUTE AUTO 0.02 K/mm3 (0.00-0.23); BASOPHILS PERCENT AUTO 0 % (0-2); EOSINOPHILS ABSOLUTE AUTO 0.08 K/mm3 (0.00-0.68); EOSINOPHILS PERCENT AUTO 1 % (0-6); Hematocrit 34.9 % (33.0-51.0); Hemoglobin 11.5 g/dL (11.5-16.0); IMMATURE GRAN ABSOLUTE AUTO 0.03 K/mm3 (0.00-0.10); IMMATURE GRAN PERCENT AUTO 1 % (0-1); LYMPHOCYTES PERCENT AUTO 7 % (21-46); MONOCYTES ABSOLUTE AUTO 0.08 K/mm3 (0.16-1.47); MONOCYTES PERCENT AUTO 1 % (4-13); Mean Corpuscular HGB 33.2 pg (26.0-34.0); Mean Corpuscular Volume 101 fL (80-100); Mean Platelet Volume 9.4 fL (9.1-12.4); NEUTROPHILS ABSOLUTE AUTO 5.07 K/mm3 (1.96-9.15); NEUTROPHILS PERCENT AUTO 89 % (41-73); Platelet Count 136 K/mm3 (150-400); RDW Coefficient Variation 13.9 % (11.7-14.2); RDW Standard Deviation 51.7 fL (35.1-46.3); Red Blood Cell Count 3.46 M/mm3 (3.80-5.20); White Blood Cell Count 5.68 K/mm3 (4.00-11.30)
[2022-01-03] MEDS ORDERED: AZIT250 PO (12:05)
--- NOTE | 2022-01-03 15:35 | NUR ---
SHIFT SUMMARY: PATIENT ARRIVED FROM ER TODAY 01/03/22 AT 1200. LARGE AND SMALL BOWEL OBSTRUCTIONS PATIENT IS A&OX4. VS ARE WNL AND IS ON HER BASELINE OF 2L NC WITH >90% OXYGEN SATS. PAIN IS MANAGED WITH IV DILAUDID. PATIENT IS TO BE NPO. DR. BEST CAME BY AND EXAMINED PATIENT AT BEDSIDE AND REPORTED "KEEP PATIENT NPO AND IV FLUIDS GOING. I HOPE THAT THIS WILL PASS BY ITSELF LIKE WHAT HAPPENED IN AUG. OF THIS YEAR". PATIENT HAS A COLOSTOMY IN HER LUQ AND HAS SMALL AMOUNT OF BROWN SOFT STOOL. PATIENT STATED "I'VE HAD MY OSTOMY FOR 7 YEARS AND WILL CARE FOR IT MYSELF. I WILL LET THE STAFF KNOW IF I NEED MORE SUPPLIES". HER ABD IS SEVERELY DISTENDED RIGHT ABOVE HER OSTOMY AND IS FIRM/TENDER TO TOUCH. BOWEL TONES ARE ACTIVE IN ALL QUADRANTS. PATIENT HAS A MEDIPORT IN HER RIGHT CHEST WALL THAT IS NOT ACCESSED AT THIS TIME. PATIENT IS LAYING IN BED WITH CALL LIGHT IN REACH. THE PLAN IS TO KEEP THE PATIENT NPO AND CONTINUE IV FLUIDS AND PAIN MANAGEMENT.
--- NOTE | 2022-01-04 04:59 | NUR ---
ASSUMED CARE OF PT AT 1845. PT IS A&OX4, INDEPENDENT WITH CARES AND IS ABLE TO MAKE NEEDS KNOWN. HAS END OSTOMY, STOMA WDL AND PRODUCING BROWN SOFT STOOLS. PT REPORTS LESS DISCOMFORT AFTER LARGE STOOL. MEDICATED WITH PRN DILAUDID FOR PAIN. NO N/V REPORTED. PT ABLE TO CARE FOR APPLIANCE STATES THAT THEY HAVE HAD IT FOR A WHLE NOW AND ARE FAMILAR WITH OSTOMY CARE. PT HAS HAD 1000ML OUTPUT FROM OSTOMY THIS SHIFT. CALLS APPROPRIATELY. WILL CONTINUE MONITOR AND GIVE REPORT TO ONCOMING NURSE.
[2022-01-04 05:32] LABS: Hematocrit 36.1 % (33.0-51.0); Hemoglobin 11.4 g/dL (11.5-16.0); Mean Corpuscular HGB 33.1 pg (26.0-34.0); Mean Corpuscular HGB Conc 31.6 g/dL (31.5-36.5); Mean Corpuscular Volume 105 fL (80-100); Platelet Count 146 K/mm3 (150-400); RDW Coefficient Variation 13.8 % (11.7-14.2); RDW Standard Deviation 52.2 fL (35.1-46.3); Red Blood Cell Count 3.44 M/mm3 (3.80-5.20); White Blood Cell Count 3.88 K/mm3 (4.00-11.30)
[2022-01-04 06:01] LABS: BASOPHILS PERCENT MAN 0 % (0-2); EOSINOPHILS ABSOLUTE MAN 0.15 K/mm3 (0.00-0.68); EOSINOPHILS PERCENT MAN 4 % (0-6); LYMPHOCYTES ABSOLUTE MAN 0.58 K/mm3 (0.84-5.20); LYMPHOCYTES PERCENT MAN 15 % (21-46); MONOCYTES ABSOLUTE MAN 0.07 K/mm3 (0.16-1.47); MONOCYTES PERCENT MAN 2 % (4-13); NEUTROPHILS ABSOLUTE MAN 3.06 K/mm3 (1.96-9.15); SEG NEUTROPHILS PERCENT MAN 79 % (41-73); TOTAL CELLS COUNTED 100
[2022-01-04 06:13] LABS: Anion Gap 4 mmol/L (6-16); Blood Urea Nitrogen 21 mg/dL (8-24); Bun/Creatinine Ratio 44.1 (12.0-20.0); CO2, Blood 33 mmol/L (21-32); Calcium, Blood 8.3 mg/dL (8.5-10.1); Chloride, Blood 106 mmol/L (98-108); Creatinine, Blood 0.48 mg/dL (0.40-1.00); Glomerular Filtration Rate 101 (60-); Glucose, Blood 82 mg/dL (70-99); Magnesium, Blood 2.9 mg/dL (1.6-2.4); Phosphorus, Blood 3.7 mg/dL (2.5-4.9); Potassium, Blood 3.7 mmol/L (3.5-5.5); Sodium, Blood 143 mmol/L (136-145)
--- NOTE | 2022-01-04 10:15 | NUR ---
PATIENTS IV BEGAN LEAKING AND WAS REMOVED. ATTEMPTED TO START NEW UV BUT FAILED X2 TIMES. PATIENT REPORTED HAVING A MEDIPORT THAT WE COULD ACCESS. DR SHIRLEY IN ROOM TO SEE PATIENT, GAVE VERBAL ORDERS TO ACCESS MEDIPORT.
--- NOTE | 2022-01-04 17:37 | NUR ---
SHIFT [facility] NO ACUTE CHANGES THIS SHIFT. PATIENT HAS HAD BOWEL FUNCTION & OUTPUT THROUGHOUT SHIFT. DR BEST SAW PATIENT TODAY AND ADVANCED DIET TOELRATED. PATIENT BEGAN WITH CLEAR LIQUIDS AND HAS ADVANCED TO REGULAR DIET AND IS TOLERATING WELL, DENIES ANY N/V. PATIENT HAS BEEN VERY SMART AND PATIENT IN ADVANCEING DIET. MEDICATED FOR ABDOMINAL PAIN X1 THIS SHIFT PER EMAR. UP TO BATHROOM INDEPENDENTLY TO VOID, DOES OSTOMY CARE INDEPENDENTLY. CONTINUES TO HAVE MILD COUGH, BREATHING TREATMENTS PRN AT PATIENTS REQUEST. CALLS APPROPRIATELY. WILL REPORT TO ONCOMING RN.
[2022-01-05 04:35] LABS: Hematocrit 33.8 % (33.0-51.0); Hemoglobin 11.2 g/dL (11.5-16.0); Mean Corpuscular HGB 33.1 pg (26.0-34.0); Mean Corpuscular HGB Conc 33.1 g/dL (31.5-36.5); Mean Platelet Volume 9.5 fL (9.1-12.4); Platelet Count 134 K/mm3 (150-400); RDW Coefficient Variation 13.4 % (11.7-14.2); RDW Standard Deviation 49.8 fL (35.1-46.3); Red Blood Cell Count 3.38 M/mm3 (3.80-5.20)
[2022-01-05 04:37] LABS: Mean Corpuscular Volume 100 fL (80-100)
[2022-01-05 04:52] LABS: Albumin, Blood 2.8 g/dL (3.4-5.0); Anion Gap 4 mmol/L (6-16); Blood Urea Nitrogen 12 mg/dL (8-24); Bun/Creatinine Ratio 25.3 (12.0-20.0); CO2, Blood 34 mmol/L (21-32); Calcium, Blood 8.5 mg/dL (8.5-10.1); Chloride, Blood 104 mmol/L (98-108); Creatinine, Blood 0.47 mg/dL (0.40-1.00); Glomerular Filtration Rate 102 (60-); Glucose, Blood 80 mg/dL (70-99); Phosphorus, Blood 2.8 mg/dL (2.5-4.9); Potassium, Blood 3.5 mmol/L (3.5-5.5); Sodium, Blood 142 mmol/L (136-145)
--- NOTE | 2022-01-05 05:02 | NUR ---
SHIFT SUMMARY NO ACUTE CHANGES OVERNIGHT. VSS. PT HAD 50ML OSTOMY OUTPUT. PT REPORTS MILD PAIN AT THE BEGINNING OF SHIFT AND NO PAIN THIS MORNING. PT DENIES FEELING DISTENDED (ABD), SHE REPORTS THAT ABD FEELS NORMAL "FLAT". SALINE LOCK FOR MEDIPORT,ACCESSED FOR LAB DRAWS FOR THIS MORNING. AMBULATES INDEPENDETLY IN ROOM. PT DENIES DIZZINESS, LIGHT-HEADEDNESS, AND SOB. PT IS ON 2L NC OVERNIGHT (BASELINE). PT ALSO C/O MILD COUGH WITH THICK PHELGM (YELLOW/GREEN IN COLOR). TOLERATING PO INTAKE DENIES NAUSEA AND VOMITING. CALL LIGHT WITHIN REACH. WILL PROVIDE REPORT TO ONCOMING NURSE.
[2022-01-05] MEDS ORDERED: LEVO750 PO (13:54)
[2022-01-05] MEDS ORDERED: VISBIOME 112.51 EACH PO (13:55)
--- NOTE | 2022-01-05 14:40 | NUR ---
DISCHARGE VSS, SATS MAINTAINING >92% ON 2L OR VIA NC WHICH IS PATIENTS BASELINE. PAIN REPORTED TO BE MINIMAL AND MANAGED. ABDOMEN SOFT, NORMAL TOPATIENT. TOELRATIING REGULAR DIET WELL, GOOD OSTOMY OUTPUT. AMBULTING TO BATHROOM WELL AND VOIDING WELL. FAXED RX TO [facility] PER PATIENT REQUEST. DISCUSSED DISCHARGE INSTRUCTIONS AND SENT WITH PATIENT.
== END 2022-01-05 14:30 | disposition home or self-care (01) | DRG 393 ==
LOC: ER 06:16 → SURS 10:55
PROVIDERS: Emergency Medicine; Internal Medicine; ADMIT Internal Medicine
DX: K43.3 Parastomal hernia with obstruction, without gangrene (principal); E43 Unspecified severe protein-calorie malnutrition; J18.9 Pneumonia, unspecified organism; D61.810 Antineoplastic chemotherapy induced pancytopenia; C20 Malignant neoplasm of rectum; J96.11 Chronic respiratory failure with hypoxia; Z68.1 Body mass index [BMI] 19.9 or less, adult; J44.0 Chronic obstructive pulmonary disease with (acute) lower respiratory infection; C78.00 Secondary malignant neoplasm of unspecified lung; Z66 Do not resuscitate; G25.81 Restless legs syndrome; T45.1X5A Adverse effect of antineoplastic and immunosuppressive drugs, initial encounter; I48.0 Paroxysmal atrial fibrillation; I10 Essential (primary) hypertension; F32.A Depression, unspecified; F41.9 Anxiety disorder, unspecified; Z92.21 Personal history of antineoplastic chemotherapy; Z99.81 Dependence on supplemental oxygen; Z90.49 Acquired absence of other specified parts of digestive tract; Z79.899 Other long term (current) drug therapy; Z87.891 Personal history of nicotine dependence
CPT/HCPCS: 36415; 74177; 80053; 80069; 83690; 83735; 84145; 85025; 85027; 94640; 94664; 94760; 96374-59; 96375; 96376; 99285-25; A9270; J0456; J1170; J1642; J1650; J2405; J3010; J7030; J7050; J7120; Q9967

== ENCOUNTER 2022-02-08 15:59 | Emergency (ER) | payer MEDICARE, OTHER ==
[~2022-02-08] VITALS: Ht 160 cm; Wt 36.3 kg
[~2022-02-08 15:59] MED LIST changes: +LEVO750 PO
[2022-02-08 16:39] LABS: BASOPHILS ABSOLUTE AUTO 0.01 K/mm3 (0.00-0.23); BASOPHILS PERCENT AUTO 0 % (0-2); EOSINOPHILS PERCENT AUTO 0 % (0-6); Hematocrit 38.4 % (33.0-51.0); Hemoglobin 12.9 g/dL (11.5-16.0); IMMATURE GRAN ABSOLUTE AUTO 0.06 K/mm3 (0.00-0.10); IMMATURE GRAN PERCENT AUTO 1 % (0-1); LYMPHOCYTES ABSOLUTE AUTO 0.22 K/mm3 (0.84-5.20); LYMPHOCYTES PERCENT AUTO 3 % (21-46); MONOCYTES ABSOLUTE AUTO 0.14 K/mm3 (0.16-1.47); MONOCYTES PERCENT AUTO 2 % (4-13); Mean Corpuscular HGB 33.1 pg (26.0-34.0); Mean Corpuscular HGB Conc 33.6 g/dL (31.5-36.5); Mean Corpuscular Volume 99 fL (80-100); Mean Platelet Volume 9.3 fL (9.1-12.4); NEUTROPHILS ABSOLUTE AUTO 8.25 K/mm3 (1.96-9.15); NEUTROPHILS PERCENT AUTO 95 % (41-73); Platelet Count 245 K/mm3 (150-400); RDW Coefficient Variation 13.7 % (11.7-14.2); RDW Standard Deviation 49.4 fL (35.1-46.3); White Blood Cell Count 8.68 K/mm3 (4.00-11.30)
[2022-02-08 16:51] LABS: Magnesium, Blood 2.3 mg/dL (1.6-2.4)
[2022-02-08 16:55] LABS: Albumin/Globulin Ratio 1.1 (0.8-1.8); Bilirubin, Total 0.3 mg/dL (0.1-1.0); Bun/Creatinine Ratio 42.7 (12.0-20.0); Calcium, Blood 8.5 mg/dL (8.5-10.1); Creatinine, Blood 0.4 mg/dL (0.40-1.00); Globulin, Blood 2.8 g/dL (2.2-4.0); Potassium, Blood 3.9 mmol/L (3.5-5.5); Thyroid Stimulating Hormone 0.675 uIU/mL (0.360-4.800); Total Protein, Blood 5.8 g/dL (6.4-8.2)
== END 2022-02-08 19:52 | disposition home or self-care (01) ==
LOC: ER 15:59
PROVIDERS: Student in an Organized Health Care Education/Training Program
DX: I48.92 Unspecified atrial flutter (principal); Z79.899 Other long term (current) drug therapy; Z87.891 Personal history of nicotine dependence
CPT/HCPCS: 71045; 80053; 83735; 84443; 85025; 93005; 93010; J7120

== ENCOUNTER 2022-04-15 13:53 | Inpatient (IN) | payer MEDICARE, OTHER ==
[~2022-04-15] VITALS: Ht 160 cm; Wt 36.0 kg
[2022-04-15] MEDS ORDERED: ELIQUIS5 M3 PO (14:55)
[2022-04-15] MEDS ORDERED: ATENOLOL25 MG PO (14:55)
[2022-04-15 15:27] LABS: BASOPHILS ABSOLUTE AUTO 0.02 K/mm3 (0.00-0.23); BASOPHILS PERCENT AUTO 0 % (0-2); EOSINOPHILS ABSOLUTE AUTO 0.05 K/mm3 (0.00-0.68); EOSINOPHILS PERCENT AUTO 1 % (0-6); Hematocrit 30.7 % (33.0-51.0); Hemoglobin 9.6 g/dL (11.5-16.0); IMMATURE GRAN ABSOLUTE AUTO 0.04 K/mm3 (0.00-0.10); IMMATURE GRAN PERCENT AUTO 1 % (0-1); LYMPHOCYTES ABSOLUTE AUTO 0.48 K/mm3 (0.84-5.20); LYMPHOCYTES PERCENT AUTO 8 % (21-46); MONOCYTES ABSOLUTE AUTO 0.58 K/mm3 (0.16-1.47); MONOCYTES PERCENT AUTO 10 % (4-13); Mean Corpuscular HGB 33.4 pg (26.0-34.0); Mean Corpuscular HGB Conc 31.3 g/dL (31.5-36.5); Mean Corpuscular Volume 107 fL (80-100); Mean Platelet Volume 9.9 fL (9.1-12.4); NEUTROPHILS ABSOLUTE AUTO 4.58 K/mm3 (1.96-9.15); NEUTROPHILS PERCENT AUTO 80 % (41-73); Platelet Count 167 K/mm3 (150-400); RDW Coefficient Variation 13.5 % (11.7-14.2); RDW Standard Deviation 51.8 fL (35.1-46.3); Red Blood Cell Count 2.87 M/mm3 (3.80-5.20); White Blood Cell Count 5.75 K/mm3 (4.00-11.30)
[2022-04-15 15:39] LABS: Albumin, Blood 2.6 g/dL (3.4-5.0); Albumin/Globulin Ratio 1.2 (0.8-1.8); Bilirubin, Total 0.3 mg/dL (0.1-1.0); Calcium, Blood 7.6 mg/dL (8.5-10.1); Creatinine, Blood 0.58 mg/dL (0.40-1.00); Globulin, Blood 2.2 g/dL (2.2-4.0); Potassium, Blood 3.7 mmol/L (3.5-5.5); Total Protein, Blood 4.8 g/dL (6.4-8.2)
--- NOTE | 2022-04-15 21:10 | NUR ---
PT TRANSFERRED FROM ED. ASSUMED CARE @2120. PT RESTING COMFORTABLY IN BED. O2 VIA NC 2L/MIN. 22GA IV R FOREARM. 20GA IV L FOREARM. D5W INFUSING 50MLS/HR. LR BOLUS INFUSING. HR 80'S, SBP 130'S. PT IS A&O X4, PLEASANT AND COOPERATIVE. DENIES PAIN OR SOB.
[2022-04-16 02:01] LABS: C DIFFICILE DNA POSITIVE (Negative)
--- NOTE | 2022-04-16 03:44 | NUR ---
COLOSTOMY COLOSTOMY BAG FOUND OFF AT THIS TIME. STOMA IS BEEFY RED AND SMALL AMOUNT OF BLOOD NOTED DRAINING AT STOMA SITE. SKIN SURROUNDING STOMA IS INTACT. STOOL FROM COLOSTOMY DOES NOT APPEAR TO HAVE BLOOD NOTED. COLOSTOMY APPLIANCE CHANGED AT THIS TIME (2 1/ SIZE).
[2022-04-16 04:18] LABS: Hematocrit 36.3 % (33.0-51.0); Hemoglobin 11.9 g/dL (11.5-16.0); Mean Corpuscular HGB 34.1 pg (26.0-34.0); Mean Corpuscular HGB Conc 32.8 g/dL (31.5-36.5); Mean Corpuscular Volume 104 fL (80-100); Mean Platelet Volume 9.6 fL (9.1-12.4); Platelet Count 155 K/mm3 (150-400); RDW Coefficient Variation 13.8 % (11.7-14.2); RDW Standard Deviation 52.1 fL (35.1-46.3); Red Blood Cell Count 3.49 M/mm3 (3.80-5.20); White Blood Cell Count 14.09 K/mm3 (4.00-11.30)
[2022-04-16 04:38] LABS: Bun/Creatinine Ratio 34.3 (12.0-20.0); Calcium, Blood 8.1 mg/dL (8.5-10.1); Creatinine, Blood 0.47 mg/dL (0.40-1.00); Potassium, Blood 3.7 mmol/L (3.5-5.5)
[2022-04-16 05:40] LABS: Source, Urine Foley catheter
[2022-04-16 05:49] LABS: Appearance, Urine Clear (Clear); Bilirubin, Urine Neg (Neg); Blood, Urine Neg (Neg); Color, Urine Yellow (P-Yellow); Glucose Qualitative, Urine Neg (Neg); Ketones, Urine Neg (Neg); Leukocyte Esterase, Urine Neg (Neg); Nitrite, Urine Neg (Neg); Protein, Urine Neg (Neg); Urobilinogen, Urine NORM (Normal)
--- NOTE | 2022-04-16 06:15 | NUR ---
SUMMARY NEURO/PSYCH/MUSC: PT IS A&O X4 THROUGHOUT SHIFT. ABLE TO MAKE SMALL POSITION CHANGES AND WEAKLY MOVE EXTREMETIES. STRENGTH EQUAL BILATERALLY. PERRL. PT LIVES AT HOME WITH HER SISTER. RESP: PT HAS A HX OF COPD. ON 2L O2 VIA NC AT HOME AND IN HOSPITAL. SPO2 >92%. RR <20. LUNGS ARE CLEAR THROUGHOUT. CARDIAC: HR 80'S. SBP STABLE 130'S. NO EDEMA NOTED. CAP REFILL <3. GI: PT HAD OVER 800 MLS LOOSE STOOLS IN COLOSTOMY BAG THROUGH SHIFT. C. DIFF POSITIVE. PT HAD 8/10 LEFT SIDED ABDOMINAL PAIN THIS AM THAT WAS TREATED WITH FENTANYL. PAIN DECREASED TO 6/10 AND PT RESTING COMFORTABLY. PT DENIES NAUSEA. ABDOMEN FIRM AND PAINFUL ON PALPATION. NG TUBE SET TO LIS. : PT DID NOT URINATE THROUGHOUT SHIFT AND STATES SHE COULD NOT. KOROMA CATH PLACED AND DRAINING DARK YELLOW URINE TO GRAVITY. UA SENT TO LAB. SKIN: PT SKIN REMAINS UNCHANGED SINCE INITIAL ASSESSMENT. IV ACCESS: 22GA R FOREARM INFUSING AND 20GA L FOREARM SALINE LOCK.
--- NOTE | 2022-04-16 11:12 | NUR ---
THIS NURSE TOOK OVER THIS PATIENTS CARE AT THIS TIME.
--- NOTE | 2022-04-16 11:35 | NUR ---
NG TUBE HAS BEEN D/C'D. PATIENT TOLERATED IT WELL. SHE IS A&OX4. VS ARE WNL AND ON RA. PAIN IS MANAGED WITH IV PAIN MEDICATIONS. KOROMA IS DRAINING PER GRAVITY WITH DARK YELLOW URINE. OSTOMY IN LLQ HAS SMALL AMOUNT OF CLEAR FLUID FOR OUTPUT IN THE BAG. PATIENT STATED SHE IS COMFORTABLE AT THIS TIME. CALL LIGHT IS WITHIN REACH.
--- NOTE | 2022-04-16 14:30 | NUR ---
SHIFT SUMMARY: SBO PATIENT IS A&OX4. VS ARE WNL AND IS ON RA. PAIN IS MANAGED WITH IV DILAUDID AT THIS TIME. AWAITING FOR DR. HAYES TO PLACE TYLNOL ORDERS TO BE ADDED TO THE EMAR. PATIENT DENIES NAUSEA/VOMITING AND IS TOLERATING SMALL AMOUNTS OF HER CLEAR LIQUID DIET. HER OSTOMY HAS A SMALL AMOUNT OF LIGHT COLORED FLUID IN IT. IV FLUIDS ARE CONTINUING TO RUN THROUGH HER IV. BOWEL TONES ARE HYPOACTIVE. KOROMA IS PATENT AND DRAINING PER GRAVITY WITH DARK YELLOW URINE. PATIENT CALLS APPROPRIATELY. CALL LIGHT IS WITHIN REACH. THE PLAN IS TO CONTINUE CLEAR LIQUID DIET AND ADVANCE TOLERATED. SHE WILL EVENTUALLY BE DISCHARGED HOME WITH HOME HEALTH AFTER SPEAKING WITH PALLIATIVE CARE.
--- NOTE | 2022-04-16 14:41 | NUR ---
pt resting slightly labored in her respirations. She denies pain states nausea is much better she is struggling with dry throat and stomitsis. She states she has had pneumonia a few times and is getting more urinary tract infections. She denies any recnt falls. She states her home life is stable and her sister in of great help. Denies any fainacial stress. Her plan is to continue care until her and Dr Burns feel it is no longer sustaining her. We reviewed updating her doctors if the magic mouthwash is not working so they can try a diferent formula. We reviewed better comfort and pain management so she can be more active. We reviewed hypoventilation and using her pickle at home. We reviewed monitoring hydration and nutrition. Review of more frequent handwashing and washing hands before voiding. She is not seeing her primary care very much and being more homebound. Suggested home nursing visits to monitor her ostomy and symptoms. She was very interesting in that supportive care. notified dr Owens office of request for home health. Will update care managers.
--- NOTE | 2022-04-16 14:46 | NUR ---
ASSUMED CARE OF PATIENT. PATIENT RESTING IN BED, REPORTS BEING COMFORTABLE AND HAS NO NEEDS AT THIS TIME. CALL LIGHT IN REACH.
--- NOTE | 2022-04-16 17:39 | NUR ---
PATIENT C/O SHORTNESS OF BREATH. O2 SATS CURRENTLY 97% IN 2L NC, WHICH IS BASELINE FOR PATIENT. RESPIRATIONS ARE EVEN AND UNLABORED AT 18/MINUTE. PATIENT STATES SHE TAKES ANXIETY MEDICATION AT HOME AND FEELS THAT SHE NEEDS HER MEDICATION. THIS RN CALLED MD ON FOR THIS PATIENT, DR. MEJIA. STATED HE WILL COME EVALUATE PATIENT AND POTENTIALLY ORDER HOME MEDICATIONS FOR PATIENT.
--- NOTE | 2022-04-16 17:41 | NUR ---
SHIFT SUMMARY NO ACUTE CHANGES SINCE ASSUMPTION OF CARE. PATIENT HAD EPISODE OF SHORTNESS OF BREATH, SEE PREVIOUS NOTE. AWAITING MD GRACIA AND FURTHER ORDERS. PATIENT TOLERATING CLEAR LIQUIDS ALTHOUGH HAS MINIMAL APPETITE. CALLS APPROPRIATELY, WILL REPORT TO ONCOMING RN.
--- NOTE | 2022-04-17 00:04 | NUR ---
PT CALLED US INTO ROOM AROUND 2340, AND SAID HER HR FELT HIGH. PULSE WAS 150. CALLED DR BELL. THEY ORDERED 10MG IV DILTIAZEM, AND TELE. TELE REPORED 150 A-FLUTTER RVR, CONVERTED AT 2357 TO SINUS TACH @ 101
--- NOTE | 2022-04-17 04:44 | NUR ---
SHIFT SUMMARY PT A&OX4, PLEASANT AND COOPERATIVE. PT HAS NOT NEEDED PAIN COVERAGE T/O SHIFT. PT'S HR WAS ELEVATED AROUND 2330, DR VALLEJO CONSULTED AND PT WAS PLACED ON TELE WITH A 10MG DOSE OF DILTIAZEM (SEE OTHER NOTE). PT HAD SOME ANXIETY, MEDICATED PER EMAR. TOLERATING CLEAR LIQUIDS. KOROMA IN PLACE DRAINING TO GRAVITY, YELLOW/CLEAR. PT IS RATHER THIN, MEPILEX DRESSING PLACED ON COCCYX/HIPS FOR SKIN PROTECTION. CALLS APPROPRIATELY, CALL LIGHT WITHIN REACH.
[2022-04-17 07:15] LABS: BASOPHILS ABSOLUTE AUTO 0.03 K/mm3 (0.00-0.23); BASOPHILS PERCENT AUTO 0 % (0-2); EOSINOPHILS ABSOLUTE AUTO 0.01 K/mm3 (0.00-0.68); EOSINOPHILS PERCENT AUTO 0 % (0-6); Hematocrit 34.6 % (33.0-51.0); Hemoglobin 11.2 g/dL (11.5-16.0); IMMATURE GRAN ABSOLUTE AUTO 0.05 K/mm3 (0.00-0.10); IMMATURE GRAN PERCENT AUTO 0 % (0-1); LYMPHOCYTES ABSOLUTE AUTO 0.69 K/mm3 (0.84-5.20); LYMPHOCYTES PERCENT AUTO 5 % (21-46); MONOCYTES ABSOLUTE AUTO 0.62 K/mm3 (0.16-1.47); MONOCYTES PERCENT AUTO 4 % (4-13); Mean Corpuscular HGB 33.1 pg (26.0-34.0); Mean Corpuscular HGB Conc 32.4 g/dL (31.5-36.5); Mean Corpuscular Volume 102 fL (80-100); Mean Platelet Volume 9.8 fL (9.1-12.4); NEUTROPHILS ABSOLUTE AUTO 13.76 K/mm3 (1.96-9.15); NEUTROPHILS PERCENT AUTO 91 % (41-73); Platelet Count 186 K/mm3 (150-400); RDW Coefficient Variation 14.1 % (11.7-14.2); RDW Standard Deviation 52.4 fL (35.1-46.3); Red Blood Cell Count 3.38 M/mm3 (3.80-5.20); White Blood Cell Count 15.16 K/mm3 (4.00-11.30)
[2022-04-17 07:30] LABS: Bun/Creatinine Ratio 23.4 (12.0-20.0); Calcium, Blood 7.6 mg/dL (8.5-10.1); Creatinine, Blood 0.51 mg/dL (0.40-1.00); Potassium, Blood 3.7 mmol/L (3.5-5.5)
--- NOTE | 2022-04-17 11:02 | NUR ---
Spiritual Care Visit. Pt. is sitting on the side of her bed and welcomes my visit. Pt. is pleasant, but verbalizes that she suffers from anxiety. With a calming presence listen empathetic listening am able to provide pastoral and theraputic support. Pt. displays evidence of engagement and awareness. Consider some issues of madhavi and belief as well as comfort that comes from God's promises to us. Pt. was very receptive to pastoral encouragement. Prayed with Pt. Pt. became mildly cathartic, and verbalized gratitude for the spiritual care visit.
--- NOTE | 2022-04-17 16:26 | NUR ---
SHIFT SUMMARY NO ACUTE CHANGES THIS SHIFT. OSTOMY HAD SOME STOOL OUTPUT WELL GAS T/O SHIFT. PATIENT REPORTS MINIMAL PAIN AND NO PAIN MEDICATION GIVEN. ANXIETY MEDICATION RE-ORDERED PER PATIENTS HOME REGIMEN AND PATIENT HAS REPORT RELIEF WITH THAT. PATIENT INDEPENDENTLY REPOSITIONS SELF IN BED AND TO EDGE OF BED FOR MEALS AND OSTOMY CARE. WORKED WITH OT&PT TODAY AND TOLERATED WELL. 2L O2 VIA NC REMAINS IN [place], WHICH IS BASELINE FOR PATIENT. DENIES SOB/DIFFICULTY BREATHING. TELE REMAINS IN [place], NO EVENTS REPORTED TODAY. CALLS APPROPRIATELY, WILL REPORT TO ONCOMING RN.
[2022-04-18 04:34] LABS: BASOPHILS ABSOLUTE AUTO 0.04 K/mm3 (0.00-0.23); BASOPHILS PERCENT AUTO 0 % (0-2); EOSINOPHILS ABSOLUTE AUTO 0.06 K/mm3 (0.00-0.68); EOSINOPHILS PERCENT AUTO 0 % (0-6); Hematocrit 31.8 % (33.0-51.0); Hemoglobin 10.4 g/dL (11.5-16.0); IMMATURE GRAN ABSOLUTE AUTO 0.13 K/mm3 (0.00-0.10); IMMATURE GRAN PERCENT AUTO 1 % (0-1); LYMPHOCYTES ABSOLUTE AUTO 0.66 K/mm3 (0.84-5.20); LYMPHOCYTES PERCENT AUTO 4 % (21-46); MONOCYTES ABSOLUTE AUTO 0.75 K/mm3 (0.16-1.47); MONOCYTES PERCENT AUTO 5 % (4-13); Mean Corpuscular HGB 33.3 pg (26.0-34.0); Mean Corpuscular HGB Conc 32.7 g/dL (31.5-36.5); Mean Corpuscular Volume 102 fL (80-100); Mean Platelet Volume 9.6 fL (9.1-12.4); NEUTROPHILS ABSOLUTE AUTO 14.28 K/mm3 (1.96-9.15); NEUTROPHILS PERCENT AUTO 90 % (41-73); Platelet Count 171 K/mm3 (150-400); RDW Coefficient Variation 13.7 % (11.7-14.2); RDW Standard Deviation 50.5 fL (35.1-46.3); Red Blood Cell Count 3.12 M/mm3 (3.80-5.20); White Blood Cell Count 15.92 K/mm3 (4.00-11.30)
[2022-04-18 04:58] LABS: Bun/Creatinine Ratio 18.2 (12.0-20.0); Calcium, Blood 7.8 mg/dL (8.5-10.1); Creatinine, Blood 0.5 mg/dL (0.40-1.00); Potassium, Blood 3.6 mmol/L (3.5-5.5)
--- NOTE | 2022-04-18 05:44 | NUR ---
SHIFT SUMMARY PT A&OX4, PLEASANT AND COOPERATIVE. NO PAIN COVERAGE NEEDED THIS SHIFT. INDEPENDENTLY MOVING AROUND IN BED, SAT AND DANGLED WHEN TAKING EVENING MEDICATIONS. STATED TOLERATING FULL LIQUID DINNER WITHOUT NAUSEA. OSTOMY OUTPUT STOOL/GAS. PT REMAINS ON 2L NC, BUT THIS HER BASELINE. VSS, NO ACUTE EVENTS REPORTED BY TELE. MEPILEX IN PLACE TO JOSE R PROMINENCES FOR PROTECTION. CALLS APPROPRIATELY, CALL LIGHT WITHIN REACH.
--- NOTE | 2022-04-18 10:54 | NUR ---
Spiritual Care Visit. Pt. is in bed and welcomes my visit. Pt. is pleasant and verbalizes the expectation of being discharged home sometime today. Normalize te Pt. experience. Pt. displays no evidence of pain or discomfort and is engaged and alert. Prayed with Pt. Pt. verbalized gratitude for the spiritual care visit.
--- NOTE | 2022-04-18 16:14 | NUR ---
DISCHARGE: PT ABLE TO VOID SEVERAL TIMES AFTER KOROMA DC'D. PACKET PRINTED AND PT EDUCATED. NO NEW MEDS NEEDED TO FAX. X2 IV'S DC'D WNL, TIPS INTACT. PT HAS HOME O2 TANK WITH HER AND USED AT DISCHARGE FOR TRANSPORT. LEFT UNIT VIA WHEELCHAIR WITH SURGICAL STAFF AT 1510.
== END 2022-04-18 16:13 | disposition home or self-care (01) | DRG 394 ==
LOC: ER 13:53 → SURS 16:57 → PCU 21:16 → SURS 04-16 11:10
PROVIDERS: Family Medicine; Internal Medicine; Student in an Organized Health Care Education/Training Program; ADMIT Internal Medicine
DX: K43.3 Parastomal hernia with obstruction, without gangrene (principal); A04.72 Enterocolitis due to Clostridium difficile, not specified as recurrent; J96.11 Chronic respiratory failure with hypoxia; R65.10 Systemic inflammatory response syndrome (SIRS) of non-infectious origin without acute organ dysfunction; C20 Malignant neoplasm of rectum; Z66 Do not resuscitate; K58.9 Irritable bowel syndrome, unspecified; F32.A Depression, unspecified; F41.9 Anxiety disorder, unspecified; J44.9 Chronic obstructive pulmonary disease, unspecified; I48.0 Paroxysmal atrial fibrillation; G25.81 Restless legs syndrome; Z93.2 Ileostomy status; Z87.891 Personal history of nicotine dependence; Z98.890 Other specified postprocedural states; Z90.49 Acquired absence of other specified parts of digestive tract; Z99.81 Dependence on supplemental oxygen; Z93.3 Colostomy status; Z79.01 Long term (current) use of anticoagulants; Z79.51 Long term (current) use of inhaled steroids; Z79.899 Other long term (current) drug therapy
CPT/HCPCS: 36415; 51703; 71045; 74177; 80048; 80053; 81003; 82947; 83605; 85025; 85027; 87040; 87324; 87493; 94640; 94760; 96361; 97162; 97165; 97530; A9270; J1170; J2270; J3010; J7042; J7120; Q9967

== ENCOUNTER → 2022-04-24 | Outpatient (CLI) | payer MEDICARE, OTHER ==
[~2022-04-24] MED LIST changes: +ATENOLOL25 MG PO; +ELIQUIS5 M3 PO
== END | disposition home or self-care (01) ==
LOC: LAB 14:50 → LAB SHORT 14:50
DX: R30.0 Dysuria (principal)
CPT/HCPCS: 87077; 87086; 87186

== ENCOUNTER → 2022-05-19 | Outpatient (CLI) | payer MEDICARE, OTHER | LOC: LAB 13:03 → LAB SHORT 13:03 | DX: L08.9 Local infection of the skin and subcutaneous tissue, unspecified (principal) | CPT/HCPCS: 87070; 87077; 87186; 87205 ==

== ENCOUNTER 2022-05-31 10:17 | Inpatient (IN) | payer MEDICARE, OTHER ==
[~2022-05-31] VITALS: Ht 160 cm; Wt 36.4 kg
[2022-05-31 11:57] LABS: BASOPHILS ABSOLUTE AUTO 0.01 K/mm3 (0.00-0.23); BASOPHILS PERCENT AUTO 0 % (0-2); Hematocrit 37.1 % (33.0-51.0); LYMPHOCYTES ABSOLUTE AUTO 0.63 K/mm3 (0.84-5.20); LYMPHOCYTES PERCENT AUTO 20 % (21-46); MONOCYTES ABSOLUTE AUTO 0.17 K/mm3 (0.16-1.47); MONOCYTES PERCENT AUTO 5 % (4-13); Mean Corpuscular HGB 32.6 pg (26.0-34.0); Mean Corpuscular HGB Conc 32.3 g/dL (31.5-36.5); Mean Corpuscular Volume 101 fL (80-100); Platelet Count 340 K/mm3 (150-400); RDW Coefficient Variation 14.6 % (11.7-14.2); RDW Standard Deviation 54.5 fL (35.1-46.3); Red Blood Cell Count 3.68 M/mm3 (3.80-5.20); White Blood Cell Count 3.14 K/mm3 (4.00-11.30)
[2022-05-31 12:05] LABS: EOSINOPHILS ABSOLUTE AUTO 0.08 K/mm3 (0.00-0.68); EOSINOPHILS PERCENT AUTO 3 % (0-6); IMMATURE GRAN ABSOLUTE AUTO 0.01 K/mm3 (0.00-0.10); IMMATURE GRAN PERCENT AUTO 0 % (0-1); NEUTROPHILS ABSOLUTE AUTO 2.24 K/mm3 (1.96-9.15); NEUTROPHILS PERCENT AUTO 71 % (41-73)
[2022-05-31 12:18] LABS: Albumin, Blood 2.8 g/dL (3.4-5.0); Bilirubin, Total 0.4 mg/dL (0.1-1.0); Bun/Creatinine Ratio 49.1 (12.0-20.0); Calcium, Blood 8.2 mg/dL (8.5-10.1); Creatinine, Blood 0.69 mg/dL (0.40-1.00); Globulin, Blood 2.9 g/dL (2.2-4.0); Potassium, Blood 4.7 mmol/L (3.5-5.5); Total Protein, Blood 5.7 g/dL (6.4-8.2)
[2022-05-31 12:43] LABS: Source, Urine Clean Catch
[2022-05-31 12:49] LABS: Bilirubin, Urine Neg (Neg); Blood, Urine Neg (Neg); Glucose Qualitative, Urine Neg (Neg); Ketones, Urine Neg (Neg); Leukocyte Esterase, Urine Neg (Neg); Nitrite, Urine Neg (Neg); Protein, Urine Neg (Neg); Urobilinogen, Urine NORM (Normal)
[2022-05-31 12:58] LABS: Appearance, Urine Clear (Clear); Color, Urine Yellow (P-Yellow)
[2022-05-31] MEDS ORDERED: ATEN25 PO (13:36)
[2022-05-31] MEDS ORDERED: FLUT1DIS5 INH (14:54)
[2022-05-31] MEDS ORDERED: Preservision S1 EACH PO (14:55)
[2022-05-31 15:06] LABS: Influenza A, PCR NEGATIVE (NEGATIVE); Influenza B, PCR NEGATIVE (NEGATIVE); Resp Syncytial Virus, PCR NEGATIVE (NEGATIVE); SARS-Cov-2 (COVID-19) PCR, MMC NEGATIVE (NEGATIVE)
[2022-06-01 00:52] LABS: Source, Urine Foley catheter
[2022-06-01 00:54] LABS: Bilirubin, Urine Neg (Neg); Blood, Urine 2+ (Neg); Glucose Qualitative, Urine Neg (Neg); Ketones, Urine 1+ (Neg); Leukocyte Esterase, Urine Neg (Neg); Nitrite, Urine Neg (Neg); Protein, Urine 1+ (Neg); Urobilinogen, Urine NORM (Normal)
[2022-06-01 01:06] LABS: Appearance, Urine Clear (Clear); Bacteria Not Seen /hpf; Color, Urine Yellow (P-Yellow); Squamous Epithelial Cells Not Seen /hpf (Few); White Blood Cells, Urine Not Seen /hpf (0-5)
--- NOTE | 2022-06-01 06:04 | NUR ---
SUMMARY NEURO: A/OX4, BASELINE NEUROPATHY, GENERALIZED WEAKNESS LUNGS: DIMINISHED. ON 1L NC. HX OF COPD. NO COUGH. CARDIAC: PAROXISMAL AFIB AND BRADYCARDIA NOTED WHILE SLEEPING. PT WENT UP TO 12 OF LEVO AND VASO DURING THIS SHIFT. 500ML LR BOLUS GIVEN. PRESSORSE CURRENTLY OFF. PULSES FAINT BUT PRESENT. NO EDEMA. GI: CACHETIC. LLQ COLOSTOMY, HERNIA TO LEFT OF COLOSTOMY. UMBILICAL RED. C/O OF SEVERE GAS PAIN. RED UMBILICUS. WOUND ON OLD MIDLINE INCISION SITE NEAR PUBIS AREA THAT IS DRAINING SEROUS/PURULENT DRAINAGE. HX MULTIPLE SBO'S, COLECTOMY, RECTAL CANCER AND IBS. : KOROMA IN PLACE, DRAINING CLEAR YELLOW URINE. HYPER ATTENUATING LESION ON L KIDNEY PER CT SCAN. SKIN: STAGE 2 PRESSURE INJURY ON COCCYX, MEPILEX IN PLACE. REDNESS ON UMBILICUS AND LOWER ABD WOUND. PHOTOS IN CHART. PT WAS GIVEN A CHG BATH. SKIN IS DRY WITH POOR TURGOR. LAST DAY OF CHEMO TREATMENT ON 05/26/22. WBC'S 3.14, PT WAS HYPOTHERMIC AT 96.1F. BEAR HUGGER APPLIED.
[2022-06-01 06:08] LABS: Hematocrit 28.6 % (33.0-51.0); Hemoglobin 9.2 g/dL (11.5-16.0); Mean Corpuscular HGB 32.5 pg (26.0-34.0); Mean Corpuscular HGB Conc 32.2 g/dL (31.5-36.5); Mean Corpuscular Volume 101 fL (80-100); Mean Platelet Volume 9.6 fL (9.1-12.4); Platelet Count 224 K/mm3 (150-400); RDW Coefficient Variation 14.4 % (11.7-14.2); RDW Standard Deviation 53.1 fL (35.1-46.3); Red Blood Cell Count 2.83 M/mm3 (3.80-5.20); White Blood Cell Count 2.34 K/mm3 (4.00-11.30)
[2022-06-01 06:47] LABS: Albumin, Blood 2.2 g/dL (3.4-5.0); Albumin/Globulin Ratio 1.1 (0.8-1.8); Bilirubin, Total 0.3 mg/dL (0.1-1.0); Bun/Creatinine Ratio 45.7 (12.0-20.0); Calcium, Blood 7.8 mg/dL (8.5-10.1); Creatinine, Blood 0.55 mg/dL (0.40-1.00); Magnesium, Blood 2.4 mg/dL (1.6-2.4); Potassium, Blood 4.6 mmol/L (3.5-5.5); Total Protein, Blood 4.2 g/dL (6.4-8.2)
--- NOTE | 2022-06-01 07:00 | NUR ---
ASSUME CARE: I have assumed care of this patient.
[2022-06-01 07:09] LABS: BAND PERCENT MAN 2 % (0-8); BASOPHILS ABSOLUTE MAN 0.02 K/mm3 (0.00-0.23); BASOPHILS PERCENT MAN 1 % (0-2); EOSINOPHILS ABSOLUTE MAN 0.14 K/mm3 (0.00-0.68); EOSINOPHILS PERCENT MAN 6 % (0-6); LYMPHOCYTES ABSOLUTE MAN 0.25 K/mm3 (0.84-5.20); LYMPHOCYTES PERCENT MAN 11 % (21-46); MONOCYTES ABSOLUTE MAN 0.18 K/mm3 (0.16-1.47); MONOCYTES PERCENT MAN 8 % (4-13); NEUTROPHILS ABSOLUTE MAN 1.73 K/mm3 (1.96-9.15); SEG NEUTROPHILS PERCENT MAN 72 % (41-73); TOTAL CELLS COUNTED 100
--- NOTE | 2022-06-01 10:05 | NUR ---
UPDATE: Pt requesting home dose of ativan for anxiety. Dr Macdonald called; no answer. Message left.
[2022-06-01 16:19] LABS: Vancomycin, Random 5.5 ug/mL
--- NOTE | 2022-06-01 18:13 | NUR ---
SHIFT SUMMARY: NEURO: WNL, up in chair for dinner RESPIRATORY: dim on 1L NC CARDIAC: sinus rhythm. levophed titrated off this afternoon. GI/: ostomy appliance changed. irritation noted to stoma at the 1 o'clock position. brown, liquid output. Bocanegra patent and draining bakari colored urine. SKIN: no new breakdown visualized PSYCH/SOCIAL: pt requested one dose of her home ativan today. she has been very appropriate.
--- NOTE | 2022-06-01 19:09 | NUR ---
TOOK OVER CARE OF PT AT 1900. PT RESTING IN CHAIR WITH 1L NC.
[2022-06-02 05:44] LABS: Hematocrit 28.9 % (33.0-51.0); Hemoglobin 9.1 g/dL (11.5-16.0); Mean Corpuscular HGB 32.3 pg (26.0-34.0); Mean Corpuscular HGB Conc 31.5 g/dL (31.5-36.5); Mean Corpuscular Volume 103 fL (80-100); Mean Platelet Volume 9.7 fL (9.1-12.4); Platelet Count 184 K/mm3 (150-400); RDW Coefficient Variation 14.6 % (11.7-14.2); RDW Standard Deviation 53.9 fL (35.1-46.3); Red Blood Cell Count 2.82 M/mm3 (3.80-5.20); White Blood Cell Count 1.88 K/mm3 (4.00-11.30)
--- NOTE | 2022-06-02 05:56 | NUR ---
SUMMARY NEURO: WNL (BASELINE NEUROPATHY) CARDIAC: SINUS ARRYTHMIA, SOFT BP'S- SEE FLOWSHEET. PULSES PRESENT. LUNGS: DIMINISHED THROUGHOUT, ON 1L NC. SKIN: WOUNDS- SEE PHOTOS IN CHART. LOWER ABDOMEN DRESSING CHANGED- BLEEDING NOTED COMING FROM WOUND WHEN PRESSURE APPLIED TO RUQ. GI: OUT PUT IS A CRANBERRY COLORED LIQUID WITH BROWN LOOSE SOLIDS. : KOROMA IN PLACE, DRAINING TO GRAVITY BELOW BLADDER. URINE IS NOW HAZY AND YELLOW.
[2022-06-02 06:01] LABS: Albumin, Blood 2.1 g/dL (3.4-5.0); Anion Gap 3 mmol/L (6-16); Blood Urea Nitrogen 13 mg/dL (8-24); Bun/Creatinine Ratio 24.9 (12.0-20.0); CO2, Blood 27 mmol/L (21-32); Calcium, Blood 7.5 mg/dL (8.5-10.1); Chloride, Blood 112 mmol/L (98-108); Creatinine, Blood 0.52 mg/dL (0.40-1.00); Glomerular Filtration Rate 99 (60-); Glucose, Blood 84 mg/dL (70-99); Magnesium, Blood 2.1 mg/dL (1.6-2.4); Phosphorus, Blood 2.8 mg/dL (2.5-4.9); Potassium, Blood 3.5 mmol/L (3.5-5.5); Sodium, Blood 142 mmol/L (136-145); Vancomycin, Random 12.7 ug/mL
--- NOTE | 2022-06-02 13:10 | NUR ---
Spiritual care care visit conducted. Upon receiving a referral for spiritual care, I visit pt. Pt is sitting on a chair and alert. Pt immediately tells that she is very emotional today and states her appreciation for a Shop Service Technician visit. She tells me that she is losing her madhavi because of the reoccuring medical issues and the felt hopelessness of her medical problems. We talk about the power of being present in the moments we have been given, the importance of unloading worry and fear and the uplifting force that a grateful dispostition can have. I reinforce helpful attitudes and perspectives, normalize her struggles and feelings and provide therapeutic listening, theological insights, gentle supervisor counseling and guidance and prayer. Pt responds well and shows signs of being encouraged in her madhavi. Pt reaffirms her madhavi and says that she is in a much better state of mind. Spiritual care will remain available.
--- NOTE | 2022-06-02 18:46 | NUR ---
DAY SHIFT SUMMARY PT ORIENTED X4, COOPERATIVE AND PLEASANT. VSS PER PT TREND. ON 1L NC. DENIES PAIN OR DISCOMFORT. KOROMA TO DD, PATENT. COLOSTOMY WITH BOWEL SWEAT BUT NO TRUE OUTPUT. SR ON TELEMETRY. WILL PASS ON TO SALINAS RN
--- NOTE | 2022-06-03 | NUR ---
PATIENT RESTING IN BED WITH EYES CLOSED. APPEARS COMFORTABLE IN NAD
[2022-06-03 02:24] LABS: BASOPHILS ABSOLUTE AUTO 0.01 K/mm3 (0.00-0.23); BASOPHILS PERCENT AUTO 0 % (0-2); EOSINOPHILS PERCENT AUTO 4 % (0-6); Hematocrit 26.1 % (33.0-51.0); Hemoglobin 8.6 g/dL (11.5-16.0); IMMATURE GRAN ABSOLUTE AUTO 0.07 K/mm3 (0.00-0.10); IMMATURE GRAN PERCENT AUTO 2 % (0-1); LYMPHOCYTES ABSOLUTE AUTO 0.52 K/mm3 (0.84-5.20); LYMPHOCYTES PERCENT AUTO 18 % (21-46); MONOCYTES ABSOLUTE AUTO 0.23 K/mm3 (0.16-1.47); MONOCYTES PERCENT AUTO 8 % (4-13); Mean Corpuscular HGB 33.2 pg (26.0-34.0); Mean Corpuscular Volume 101 fL (80-100); Mean Platelet Volume 9.7 fL (9.1-12.4); NEUTROPHILS ABSOLUTE AUTO 1.94 K/mm3 (1.96-9.15); NEUTROPHILS PERCENT AUTO 68 % (41-73); Platelet Count 172 K/mm3 (150-400); RDW Coefficient Variation 14.7 % (11.7-14.2); RDW Standard Deviation 53.1 fL (35.1-46.3); Red Blood Cell Count 2.59 M/mm3 (3.80-5.20); White Blood Cell Count 2.87 K/mm3 (4.00-11.30)
[2022-06-03 02:41] LABS: Anion Gap 2 mmol/L (6-16); Blood Urea Nitrogen 8 mg/dL (8-24); Bun/Creatinine Ratio 15.4 (12.0-20.0); CO2, Blood 28 mmol/L (21-32); Calcium, Blood 7.5 mg/dL (8.5-10.1); Chloride, Blood 115 mmol/L (98-108); Creatinine, Blood 0.52 mg/dL (0.40-1.00); Glomerular Filtration Rate 99 (60-); Glucose, Blood 91 mg/dL (70-99); Sodium, Blood 145 mmol/L (136-145); Vancomycin, Trough 10.7 ug/mL (5.0-10.0)
--- NOTE | 2022-06-03 04:00 | NUR ---
PATIENT IN BED RESTING WITH EYES CLOSED. APPEARS COMFORTABLE IN NAD. LABS DRAWN AND AT 0200.
--- NOTE | 2022-06-03 07:56 | NUR ---
ASSUMED CARE PT IS ALERT AND ORIENTED X4. SPO2 >92% ON 1L NC; MAP >65. PT HAD TEMP OF 99.5, BUT BEAR HUGGER WAS ON. PUT ON STANDBY TO REASSESS TEMPERATURE.
--- NOTE | 2022-06-03 09:50 | NUR ---
UPDATE PT STATES SHE FEELS LIKE HER HEART IS RACING; HR IN THE 90'S. DISCUSSED W/ TODD CAR AND REASSURED PT THAT WE HAVE HER ON THE MONITOR. PULSATION NOTED ABOVE ABDOMEN AND WAS ABLE TO AUSCULTATE HEART SOUNDS OVER ABDOMEN.
--- NOTE | 2022-06-03 12:30 | NUR ---
TRANSFER PT TRANSFERRED TO MEDICAL FLOOR 334, W/ ALL POSSESSIONS. PT TOLERATED TRANSFER WELL, WAS ABLE TO GET UP TO WHEELCHAIR W/ NO C/O OF LIGHTHEADEDNESS.
--- NOTE | 2022-06-03 14:21 | NUR ---
Spiritual care visit conducted. Pt is sitting on a chair and alert. Pt talks about her anxiety and the thoughts that usually surround that feeling. We unpacked them and thalked about specific mindfulness practices and prayers that might aid when those thoughts cross her mind. We talk about her sister and the positive influence that she is for staying grounded and full of madhavi and hope. We also explore inspirational sources that can help with thought control. I provide therapeutic listening, anxiety containment, gentle certified rehabilitation counselor and prayer. Pt responds well and shows signs of an elevated mood and reduced stress.
--- NOTE | 2022-06-03 17:34 | NUR ---
SHIFT SUMMARY A/OX4, SBA FOR TRANSFERS. DENIES PAIN OR NAUSEA. CURRENTLY ON BASELINE 1L VIA NC WITH SATS GREATER THAN 92. COLOSTOMY TO LLQ. KOROMA PATENT AND DRAINING TO GRAVITY. MEDIPORT TO RCW. VSS, NO ACUTE CHANGES AT THIS TIME. BED IN LOWEST POSITION WITH CALL LIGHT IN REACH. WILL CONTINUE TO MONITOR AND REPORT TO ONCOMING RN.
[2022-06-04 02:14] LABS: BASOPHILS ABSOLUTE AUTO 0.02 K/mm3 (0.00-0.23); BASOPHILS PERCENT AUTO 0 % (0-2); EOSINOPHILS ABSOLUTE AUTO 0.22 K/mm3 (0.00-0.68); EOSINOPHILS PERCENT AUTO 5 % (0-6); Hematocrit 26.9 % (33.0-51.0); Hemoglobin 8.7 g/dL (11.5-16.0); IMMATURE GRAN ABSOLUTE AUTO 0.12 K/mm3 (0.00-0.10); IMMATURE GRAN PERCENT AUTO 3 % (0-1); LYMPHOCYTES ABSOLUTE AUTO 0.65 K/mm3 (0.84-5.20); LYMPHOCYTES PERCENT AUTO 14 % (21-46); MONOCYTES ABSOLUTE AUTO 0.44 K/mm3 (0.16-1.47); MONOCYTES PERCENT AUTO 9 % (4-13); Mean Corpuscular HGB 32.8 pg (26.0-34.0); Mean Corpuscular HGB Conc 32.3 g/dL (31.5-36.5); Mean Corpuscular Volume 102 fL (80-100); Mean Platelet Volume 9.9 fL (9.1-12.4); NEUTROPHILS ABSOLUTE AUTO 3.28 K/mm3 (1.96-9.15); NEUTROPHILS PERCENT AUTO 69 % (41-73); Platelet Count 179 K/mm3 (150-400); RDW Coefficient Variation 14.8 % (11.7-14.2); RDW Standard Deviation 54.5 fL (35.1-46.3); Red Blood Cell Count 2.65 M/mm3 (3.80-5.20); White Blood Cell Count 4.73 K/mm3 (4.00-11.30)
[2022-06-04 02:27] LABS: Magnesium, Blood 1.8 mg/dL (1.6-2.4)
[2022-06-04 02:33] LABS: Anion Gap 4 mmol/L (6-16); Blood Urea Nitrogen 8 mg/dL (8-24); CO2, Blood 27 mmol/L (21-32); Calcium, Blood 7.6 mg/dL (8.5-10.1); Chloride, Blood 115 mmol/L (98-108); Creatinine, Blood 0.66 mg/dL (0.40-1.00); Glomerular Filtration Rate 93 (60-); Glucose, Blood 99 mg/dL (70-99); Potassium, Blood 3.5 mmol/L (3.5-5.5); Sodium, Blood 146 mmol/L (136-145)
--- NOTE | 2022-06-04 03:21 | NUR ---
SHIFT SUMMARY NO OVERNIGTH EVENTS. BP LOW, BUT STABLE WITH SBP IN 100'S. DENIES ANY PAIN/SOB. CONTINUES IV ABX. COLOSTOMY IN PLACE. KOROMA CATHETER DRAINING CLEAR YELLOW URINE. MIDLINE INC DRSG C/D/I. REMAINS ON 1LO2 THAT IS PT'S BASELINE. N0 OTHER COMPLAINTS FROM PT. ABLE TO USE CALL LIGHT. WILL CONTINUE TO MONITOR.
--- NOTE | 2022-06-04 07:40 | NUR ---
KOROMA DC'D AT THE TIME OF MORNING ASSESSMENT. 225ML IN THE KOROMA AT THE TIME OF DC.
--- NOTE | 2022-06-04 19:24 | NUR ---
SHIFT SUMMARY- PT ALERT AND ORIENTED, 1PA TO THE BATHROOM. KOROMA DC'D THIS MORNING, PT STATED THE BURNING WENT AWAY ABOUT 1 HOUR AFTER THE KOROMA WAS REMOVED. PT HAS DENIED THE NEED FOR PAIN MEDICATION T/O THE DAY SHE DOES HAVE ATIVAN FOR ANXIETY, ONE DOSE GIVEN THIS SHIFT. PT IS CURRENTLY IN BED, CALL LIGHT IN REACH NO S&S OF DISTRESS AT THE TIME OF BEDSIDE REPORT.
--- NOTE | 2022-06-05 03:47 | NUR ---
SHIFT SUMMARY NO OVERNIGHT EVENTS. DENIES PAIN/SOB/ ANY S/S/ OF DISTRESS. CONTINUES IV ABX. VOIDING IN BATHROOM. X1 STAFF ASSIST WITH FWW TO BATHROOM, STEADY ON FEET. OSTOMY WITH GOOD OUTPUT. ABLE TO MAKE NEEDS KNOWN. WILL CONTINUE TO MONITOR.
[2022-06-05 05:52] LABS: Hematocrit 29.1 % (33.0-51.0); Hemoglobin 9.3 g/dL (11.5-16.0); Mean Corpuscular Volume 103 fL (80-100); Mean Platelet Volume 9.8 fL (9.1-12.4); Platelet Count 182 K/mm3 (150-400); RDW Coefficient Variation 14.8 % (11.7-14.2); RDW Standard Deviation 55.5 fL (35.1-46.3); Red Blood Cell Count 2.82 M/mm3 (3.80-5.20); White Blood Cell Count 6.48 K/mm3 (4.00-11.30)
[2022-06-05 06:09] LABS: Bun/Creatinine Ratio 24.5 (12.0-20.0); Calcium, Blood 7.7 mg/dL (8.5-10.1); Creatinine, Blood 0.57 mg/dL (0.40-1.00); Potassium, Blood 3.1 mmol/L (3.5-5.5)
[2022-06-05] MEDS ORDERED: LACT PO (11:36)
[2022-06-05] MEDS ORDERED: AMOCLA500 PO (11:39)
[2022-06-05] MEDS ORDERED: Norco 5-325 Ta1 EACH PO (11:40)
--- NOTE | 2022-06-05 14:43 | NUR ---
DISCHARGE NOTE- PT WAS GIVEN VERBAL AND WRITTEN DISCHARGE INSTRUCTIONS AND ACKNOWLEDGED UNDERSTANDING OF THEM. MEDIPORT WAS HEPRIN LOCKED AND DEACCESSED PRIOR TO PT DISCHARGE. PT WAS ESCORTED OUT VIA WC BY THE DISCHARGE VOLUNTEER. NO S&S OF DISTRESS NOTED AT THE TIME OF DISCHARGE.
== END 2022-06-05 13:32 | disposition home or self-care (01) | DRG 871 ==
LOC: ER 10:17 → ICUW 10:18 → MEDS 10:18 → ERHOLD 10:18 → ICUW 19:47 → MEDS 06-03 12:23
PROVIDERS: Internal Medicine; Nurse Practitioner Acute Care; Physician Assistant; Student in an Organized Health Care Education/Training Program; ADMIT Internal Medicine
PROC: 3E033XZ Introduction of Vasopressor into Peripheral Vein, Percutaneous Approach (ICD-10-PCS; principal; 2022-05-31)
PROC: 02HV33Z Insertion of Infusion Device into Superior Vena Cava, Percutaneous Approach (ICD-10-PCS; 2022-05-31)
PROC: 3E03329 Introduction of Other Anti-infective into Peripheral Vein, Percutaneous Approach (ICD-10-PCS; 2022-05-31)
DX: A41.9 Sepsis, unspecified organism (principal); R65.21 Severe sepsis with septic shock; J96.11 Chronic respiratory failure with hypoxia; C20 Malignant neoplasm of rectum; K56.609 Unspecified intestinal obstruction, unspecified as to partial versus complete obstruction; Z66 Do not resuscitate; Z20.822 Contact with and (suspected) exposure to COVID-19; K52.9 Noninfective gastroenteritis and colitis, unspecified; J44.9 Chronic obstructive pulmonary disease, unspecified; F32.A Depression, unspecified; F41.9 Anxiety disorder, unspecified; G25.81 Restless legs syndrome; I10 Essential (primary) hypertension; I48.0 Paroxysmal atrial fibrillation; Z90.49 Acquired absence of other specified parts of digestive tract; Z98.890 Other specified postprocedural states; Z93.3 Colostomy status; Z87.891 Personal history of nicotine dependence; Z79.01 Long term (current) use of anticoagulants; Z79.899 Other long term (current) drug therapy
CPT/HCPCS: 0241U; 36415; 51702; 71045; 74177; 80048; 80053; 80069; 80202; 81001; 81003; 82330; 82533; 83605; 83690; 83735; 84145; 84443; 85025; 85027; 87040; 90686; 94640; 94664; 94760; 96361; 96365-59; 96367; 96372-59; 96375; 97116; 97162; 97530; 99285-25; A9270; G0378; J0500; J0610; J1642; J2405; J2543; J3010; J3370; J7030; J7040; J7050; J7060; J7120; Q9967

== ENCOUNTER → 2022-07-01 | Outpatient (CLI) | payer MEDICARE, OTHER ==
[~2022-07-01] MED LIST changes: +AMOCLA500 PO; +ATEN25 PO; +LACT PO; +Norco 5-325 Ta1 EACH PO; +Preservision S1 EACH PO
== END ==
LOC: LAB SHORT 08:47 → LAB 08:47
DX: N39.0 Urinary tract infection, site not specified (principal); L08.9 Local infection of the skin and subcutaneous tissue, unspecified
CPT/HCPCS: 87077; 87086; 87186

== ENCOUNTER 2022-07-31 10:28 | Inpatient (IN) | payer MEDICARE, OTHER ==
[~2022-07-31] VITALS: Ht 165.1 cm; Wt 49.9 kg
[2022-07-31 11:00] LABS: Base Excess Venous 3.8 mmol/L; Bicarbonate Venous 27.1 mmol/L (24.0-30.0); PCO2 Venous 50.4 mmHg (38-42); PO2 Venous 161 mmHg (38-42); pH Blood Venous 7.37 (7.34-7.37)
[2022-07-31] MEDS ORDERED: HYDROXYZINE HCL 25 MG (11:06)
[2022-07-31] MEDS ORDERED: POTASSIUM CL ER 10 M (11:06)
[2022-07-31] MEDS ORDERED: ATENOLOL25 MG PO (11:07)
[2022-07-31 11:09] LABS: BASOPHILS ABSOLUTE AUTO 0.02 K/mm3 (0.00-0.23); BASOPHILS PERCENT AUTO 0 % (0-2); Hematocrit 34.7 % (33.0-51.0); Mean Corpuscular HGB 32.7 pg (26.0-34.0); Mean Corpuscular HGB Conc 31.7 g/dL (31.5-36.5); Mean Corpuscular Volume 103 fL (80-100); Mean Platelet Volume 9.6 fL (9.1-12.4); NRBC ABSOLUTE 0.02 K/mm3 (0.00-0.02); NRBC Auto 0.2 /100 WBC (0.0-0.2); Platelet Count 268 K/mm3 (150-400); RDW Coefficient Variation 15.1 % (11.7-14.2); RDW Standard Deviation 57.5 fL (35.1-46.3); Red Blood Cell Count 3.36 M/mm3 (3.80-5.20); White Blood Cell Count 11.37 K/mm3 (4.00-11.30)
[2022-07-31 11:11] LABS: EOSINOPHILS PERCENT AUTO 0 % (0-6); IMMATURE GRAN ABSOLUTE AUTO 0.07 K/mm3 (0.00-0.10); IMMATURE GRAN PERCENT AUTO 1 % (0-1); LYMPHOCYTES ABSOLUTE AUTO 0.28 K/mm3 (0.84-5.20); LYMPHOCYTES PERCENT AUTO 3 % (21-46); MONOCYTES ABSOLUTE AUTO 0.09 K/mm3 (0.16-1.47); MONOCYTES PERCENT AUTO 1 % (4-13); NEUTROPHILS ABSOLUTE AUTO 10.91 K/mm3 (1.96-9.15); NEUTROPHILS PERCENT AUTO 96 % (41-73)
[2022-07-31 11:21] LABS: Magnesium, Blood 1.9 mg/dL (1.6-2.4)
[2022-07-31 11:24] LABS: Albumin, Blood 2.6 g/dL (3.4-5.0); Bilirubin, Total 0.7 mg/dL (0.1-1.0); Bun/Creatinine Ratio 60.3 (12.0-20.0); Creatinine, Blood 0.58 mg/dL (0.40-1.00); Globulin, Blood 2.6 g/dL (2.2-4.0); Potassium, Blood 3.2 mmol/L (3.5-5.5); Total Protein, Blood 5.2 g/dL (6.4-8.2)
[2022-07-31 11:34] LABS: Influenza A, PCR NEGATIVE (NEGATIVE); Influenza B, PCR NEGATIVE (NEGATIVE); Resp Syncytial Virus, PCR NEGATIVE (NEGATIVE)
[2022-07-31 11:41] LABS: SARS-Cov-2 (COVID-19) PCR, MMC POSITIVE (NEGATIVE)
--- NOTE | 2022-07-31 21:01 | NUR ---
ASSUMPTION OF CARE THIS RN ASSUMED CARE OF PATIENT AT 1900. REPORT TAKEN FROM TYRONE CAR. PATIENT ALERT AND ORIENTED FULLY. ABLE TO MAKE NEEDS KNOWN. REPORTS NEEDING ASSISTANCE WITH REPOSITIONING. OSTOMY PATENT WITH PT REPORTING LESS OUTPUT HER INTAKE HAS DECREASED DUE TO POOR APPETITE. CBG CHECKS BEING DONE Q4HRS PER MD ORDERS. PATIENT REPORTS BEING CONTINENT OF URINE. MEDIPORT FOR CHEMO WITH DRESSING C/D/I ON RIGHT CHEST WALL. PATIENT APPEARS WEAK AND FATIGUED. CONTINUES TO BE ON 4L VIA NC WITH SPO2 >92%. NSR ON MONITOR WITH HR 80'S. SBP 100'S. MAP >65. BOLUS FINISHED PER EMAR, INFUSING MAINTANANCE FLUIDS PER EMAR. AFEBRILE. DENIES PAIN AT THIS TIME BUT REPORTS FEELING SOB. ENDORSES OCCASIONAL PRODUCTIVE COUGH. HOB ELEVATED. BED IN LOWEST POSITON AND CALL LIGHT WITHIN REACH.
[2022-08-01 04:04] LABS: Hematocrit 29.4 % (33.0-51.0); Hemoglobin 9.2 g/dL (11.5-16.0); Mean Corpuscular HGB 32.3 pg (26.0-34.0); Mean Corpuscular HGB Conc 31.3 g/dL (31.5-36.5); Mean Corpuscular Volume 103 fL (80-100); Platelet Count 191 K/mm3 (150-400); RDW Coefficient Variation 14.9 % (11.7-14.2); Red Blood Cell Count 2.85 M/mm3 (3.80-5.20); White Blood Cell Count 16.93 K/mm3 (4.00-11.30)
[2022-08-01 04:22] LABS: Albumin, Blood 2.2 g/dL (3.4-5.0); Albumin/Globulin Ratio 0.9 (0.8-1.8); Bilirubin, Total 0.5 mg/dL (0.1-1.0); Bun/Creatinine Ratio 59.3 (12.0-20.0); Calcium, Blood 8.4 mg/dL (8.5-10.1); Creatinine, Blood 0.47 mg/dL (0.40-1.00); Globulin, Blood 2.5 g/dL (2.2-4.0); Potassium, Blood 3.9 mmol/L (3.5-5.5); Total Protein, Blood 4.7 g/dL (6.4-8.2)
[2022-08-01 05:29] LABS: BAND PERCENT MAN 6 % (0-8); BASOPHILS PERCENT MAN 0 % (0-2); EOSINOPHILS PERCENT MAN 0 % (0-6); MONOCYTES PERCENT MAN 0 % (4-13); NEUTROPHILS ABSOLUTE MAN 16.93 K/mm3 (1.96-9.15); SEG NEUTROPHILS PERCENT MAN 94 % (41-73); TOTAL CELLS COUNTED 100
--- NOTE | 2022-08-01 05:38 | NUR ---
SHIFT SUMMARY NO CHANGES TO NEURO SINCE PREVIOUS SHIFT. SR ON THE MONITOR WITH HR 80-90'S. BP STABLE. AFEBRILE. SPO2 >90% ON 3L VIA NC. PATIENT BEING REPOSITIONED Q2HRS. DRESSINGS CHANGED ON COCCYX AND MID LOWER ABDOMEN WOUND; SEE UPDATED PICTURES IN CHART. MEDICATING PER EMAR. NS INFUSING PER EMAR. PATIENT ABLE TO MAKE NEEDS KNOWN. BED IN LOWEST POSITION AND CALL LIGHT WITHIN REACH. THIS RN WILL CONTINUE TO MONITOR UNTIL SHIFT CHANGE AT 0700.
--- NOTE | 2022-08-01 18:12 | NUR ---
SHIFT SUMMARY PT A/OX4 AND COOPERATIVE OF CARE. PT O2 SATS DROPPED TO 80'S AT BEGINNING OF SHIFT, RETURNED TO 90'S AFTER BEING REPOSITOINIED IN BED AND O2 UP TO 5L NC. PT O2 TITRATED BTWEEN 2-6L ALL SHIFT. PT REPORTS SOB/DYSPNEA AT TIMES EVEN THOUGH PT SATS ARE IN MID 90'S, PT REQUESTED FOR "BUMP UP IN OXYGEN." PT REMINDED THAT HER SATS ARE STABLE. OTHER VSS THROUGHOUT SHIFT. NO REPORT OF CHEST PAIN/PRESSURE THROUGHOUT SHIFT. PT UP TO BSC DURING SHIFT, TOLERATED WELL. IV DC'D DUE TO LEAKING, ORDER FOR MEDIPORT ACCESS; HEPARIN LOCK ALSO ORDERED.
--- NOTE | 2022-08-01 20:43 | NUR ---
UPDATE CALL PLACED TO RESIDENT REGARDING PATIENT'S HR RANGING 140s-160s AT REST AND UP TO 170 WITH ACTIVITY. DENIES CHEST PAIN OR PRESSURE WITH ELEVATED HR. REMAINS ON 4L NC WITH O2 SAT >90% AND NO INCREASED WORK OF BREATHING. PATIENT RECIEVED METOPROLOL PUSH x2 WITH NO CHANGE IN HR. RESIDENT UPDATED. PATIENT CHANGED BACK TO PCU STATUS AT THIS TIME.
--- NOTE | 2022-08-02 01:01 | NUR ---
UPDATE RESIDENT IN UNIT. THIS RN UPDATED RESIDENT WITH VALSAVA MANEUVER WELL ADDITIONAL DOSES OF METOPROLOL HAVE HAD NO AFFECT ON PATIENT'S HR. THIS RN AND RESIDENT REVIEWING HOME MEDICATIONS, NOTED PATIENT TAKES CARDIZEM AND ATENOLOL AT HOME. ORDERS FOR EKG AND RESTART HOME MEDICATIONS.
[2022-08-02 04:43] LABS: Hematocrit 31.6 % (33.0-51.0); Hemoglobin 9.8 g/dL (11.5-16.0); Mean Corpuscular Volume 103 fL (80-100); Mean Platelet Volume 10.6 fL (9.1-12.4); NRBC ABSOLUTE 0.04 K/mm3 (0.00-0.02); NRBC Auto 0.2 /100 WBC (0.0-0.2); Platelet Count 152 K/mm3 (150-400); RDW Coefficient Variation 14.7 % (11.7-14.2); RDW Standard Deviation 56.1 fL (35.1-46.3); Red Blood Cell Count 3.06 M/mm3 (3.80-5.20); White Blood Cell Count 19.74 K/mm3 (4.00-11.30)
[2022-08-02 05:34] LABS: BASOPHILS PERCENT MAN 0 % (0-2); EOSINOPHILS PERCENT MAN 0 % (0-6); LYMPHOCYTES ABSOLUTE MAN 0.78 K/mm3 (0.84-5.20); LYMPHOCYTES PERCENT MAN 4 % (21-46); MONOCYTES PERCENT MAN 0 % (4-13); NEUTROPHILS ABSOLUTE MAN 18.95 K/mm3 (1.96-9.15); SEG NEUTROPHILS PERCENT MAN 96 % (41-73); TOTAL CELLS COUNTED 100
--- NOTE | 2022-08-02 06:13 | NUR ---
UPDATE CALL PLACED TO RESIDENT REGARDING PATIENT'S HR AND BNP OF 1070. SEE FLOWSHEET FOR CARDIZEM GTT TITRATIONS. NO CHANGE IN HR REGARDLESS OF TITRATION. PATIENT REPORTING SOME ANXIOUSNESS, ORDERS FOR HOME DOSE OF ATIVAN RECIEVED. NO OTHER NEW ORDERS AT THIS TIME.
--- NOTE | 2022-08-02 06:32 | NUR ---
UPDATE RESIDENT CALLED THIS RN WITH ORDERS. DC IV FLUIDS, INCREASE CARDIZEM TO 20ML/HR, SEE FLOWSHEET, OT DOSE OF IV LASIX AND CHEST XRAY. PATIENT DENIES INCREASED SOB AND/OR CHEST PAIN AT THIS TIME. VITALS REMAIN STABLE.
--- NOTE | 2022-08-02 06:48 | NUR ---
SHIFT SUMMARY PATIENT ALERT AND ORIENTED, ABLE TO MAKE NEEDS KNOWN TO STAFF. HR REMAINS UNCHANGED FROM PREVIOUS NOTES. CARDIZEM GTT INFUSING, SEE FLOWSHEET. DENIES CHEST PAIN/PRESSURE. REMAINS ON 4L NC WITH O2 SAT MID TO HIGH 90s. PATIENT ABLE TO STAND PIVOT TO BEDSIDE COMMODE WITH ADEQUATE OUTPUT THIS SHIFT. MINIMAL OUTPUT IN OSTOMY BAG. NO OTHER CHANGES FROM PREVIOUS UPDATES. WILL REPORT TO DAY SHIFT RN.
[2022-08-02 06:56] LABS: Bun/Creatinine Ratio 65.1 (12.0-20.0); Calcium, Blood 8.2 mg/dL (8.5-10.1); Creatinine, Blood 0.34 mg/dL (0.40-1.00); Potassium, Blood 3.4 mmol/L (3.5-5.5); Thyroid Stimulating Hormone 0.525 uIU/mL (0.360-4.800)
--- NOTE | 2022-08-02 09:35 | NUR ---
UPDATE PT HR CONVERTED TO A SINUS RHYTHM AT 0726. DILT GTT STOPPED AT 0800.
--- NOTE | 2022-08-02 17:35 | NUR ---
SHIFT SUMMARY PT A/OX4 AND COOPERATIVE OF CARE. PT ABLE TO EXPRESS NEEDS AND CALLS APPROPIATELY. PT HR A-FIB @130-140'S AT SHIFT CHANGE, DILT GTT 15 AT THE TIME. PT CONVERTED TO A JUNCTIONAL RHYTHM AT 0726, DILT GTT TITRATED AND EVENTUALLY STOPPED AT 0800. PT REMAINED JUNCTIONAL FOR REMAINDER OF SHIFT. OTHER VSS THROUGHOUT SHIFT WITH 02 SAT IN THE 90'S ON 2L NC WHICH IS HER BASELINE. PT REPORTED SOB ONE TIME DURING SHIFT, SATS REMAINED IN THE 90'S, SOB SUBSIDED ON ITS OWN. CONTACTED DUE TO NO LABS ORDERED FOR THE MORNING, AM LABS ORDERED FOR 08/03/22. PT FAMILY AT BEDSIDE FOR ABOUT HALF OF SHIFT, PT UPDATED ON PT. PT ABLE TO PIVOT TO AND FROM BSC WITH MINIMAL ASSISTANCE, TOLERATED WELL. NO REPORT OF CHEST PAIN/PRESSURE THROUGHOUT SHIFT.
[2022-08-03 04:34] LABS: Hematocrit 27.4 % (33.0-51.0); Hemoglobin 8.6 g/dL (11.5-16.0); Mean Corpuscular HGB 32.3 pg (26.0-34.0); Mean Corpuscular HGB Conc 31.4 g/dL (31.5-36.5); Mean Corpuscular Volume 103 fL (80-100); Mean Platelet Volume 10.6 fL (9.1-12.4); NRBC ABSOLUTE 0.03 K/mm3 (0.00-0.02); NRBC Auto 0.2 /100 WBC (0.0-0.2); Platelet Count 126 K/mm3 (150-400); RDW Coefficient Variation 14.7 % (11.7-14.2); RDW Standard Deviation 55.8 fL (35.1-46.3); Red Blood Cell Count 2.66 M/mm3 (3.80-5.20); White Blood Cell Count 14.22 K/mm3 (4.00-11.30)
[2022-08-03 05:01] LABS: Bun/Creatinine Ratio 81.2 (12.0-20.0); Calcium, Blood 8.5 mg/dL (8.5-10.1); Creatinine, Blood 0.38 mg/dL (0.40-1.00); Potassium, Blood 3.4 mmol/L (3.5-5.5)
[2022-08-03 05:12] LABS: BASOPHILS PERCENT MAN 0 % (0-2); EOSINOPHILS PERCENT MAN 0 % (0-6); LYMPHOCYTES ABSOLUTE MAN 0.42 K/mm3 (0.84-5.20); LYMPHOCYTES PERCENT MAN 3 % (21-46); MONOCYTES PERCENT MAN 0 % (4-13); NEUTROPHILS ABSOLUTE MAN 13.79 K/mm3 (1.96-9.15); SEG NEUTROPHILS PERCENT MAN 97 % (41-73); TOTAL CELLS COUNTED 100
--- NOTE | 2022-08-03 05:27 | NUR ---
PT COMFORTABLE AND RESTING OVERNIGHT, AFEBRILE, VSS, UP TO BSC X'S 3, SMALL AMOUNT OF MUCUS OUTPUT FROM COLOSTOMY, DRESSING ON LOWER MID ABD FISTULA CHANGE, SITE CLEANED, APPEARED TO BE STOOL DRAINING FROM THE SITE?, REMAINS ON HER BASELINE OF 2LPM NC
--- NOTE | 2022-08-03 18:53 | NUR ---
SHIFT SUMMARY: NO ACUTE CHANGES THIS SHIFT. PT CONTINUES A&Ox4, GENERALLY WEAK, O2 SATS >92% ON 2 L NC, SR ON MONITOR W/RATE 80s-90s. PT TO/FROM BSC W/ONE PERSON ASSIST, USES CALL LIGHT APPROPRIATELY TO COMMUNICATE NEEDS. DR VALLEJO CONSULTED FOR OPEN SORE TO LOWER ABDOMEN, CT W/CONTRAST COMPLETED THIS EVENING, AWAITING RESULTS. AT THIS TIME, PT RESTING IN BED W/CALL LIGHT IN REACH. WILL CONTINUE TO MONITOR AND TREAT ACCORDINGLY UNTIL CHANGE OF SHIFT.
[2022-08-04 05:13] LABS: Hematocrit 27.5 % (33.0-51.0); Hemoglobin 8.5 g/dL (11.5-16.0); Mean Corpuscular HGB 32.3 pg (26.0-34.0); Mean Corpuscular HGB Conc 30.9 g/dL (31.5-36.5); Mean Corpuscular Volume 105 fL (80-100); Mean Platelet Volume 10.6 fL (9.1-12.4); NRBC ABSOLUTE 0.03 K/mm3 (0.00-0.02); NRBC Auto 0.4 /100 WBC (0.0-0.2); Platelet Count 93 K/mm3 (150-400); RDW Coefficient Variation 14.9 % (11.7-14.2); RDW Standard Deviation 57.1 fL (35.1-46.3); Red Blood Cell Count 2.63 M/mm3 (3.80-5.20); White Blood Cell Count 7.04 K/mm3 (4.00-11.30)
[2022-08-04 06:12] LABS: Bun/Creatinine Ratio 56.4 (12.0-20.0); Calcium, Blood 8.2 mg/dL (8.5-10.1); Creatinine, Blood 0.34 mg/dL (0.40-1.00); Potassium, Blood 3.4 mmol/L (3.5-5.5)
--- NOTE | 2022-08-04 18:53 | NUR ---
Shift Summary Pt alert, oriented x4; calm and cooperative with care. Pt resting in bed, up to bsc with 1 person assist. Pt denies pain, chest pain/pressure, sob, dizziness. Pt reporting nasuea this afternoon, medicated per emar. This am tele 140's, medicated with scheduled medication with no response, notified Dr Sauceda, new orders for ekg and cardizem push. Pt heart rate increased again this afternoon, medicated with iv lopressor, pt in sinus this evening, bp stable. Spo2 >90% on 2l o2 via nc. No other acute chagnes noted. Will continue to monitor until report given to oncoming rn.
[2022-08-05 04:28] LABS: BASOPHILS ABSOLUTE AUTO 0.02 K/mm3 (0.00-0.23); BASOPHILS PERCENT AUTO 0 % (0-2); EOSINOPHILS ABSOLUTE AUTO 0.08 K/mm3 (0.00-0.68); EOSINOPHILS PERCENT AUTO 1 % (0-6); Hematocrit 29.4 % (33.0-51.0); Hemoglobin 9.1 g/dL (11.5-16.0); IMMATURE GRAN ABSOLUTE AUTO 0.06 K/mm3 (0.00-0.10); IMMATURE GRAN PERCENT AUTO 1 % (0-1); LYMPHOCYTES ABSOLUTE AUTO 0.67 K/mm3 (0.84-5.20); LYMPHOCYTES PERCENT AUTO 9 % (21-46); MONOCYTES ABSOLUTE AUTO 0.33 K/mm3 (0.16-1.47); MONOCYTES PERCENT AUTO 4 % (4-13); Mean Corpuscular HGB 32.3 pg (26.0-34.0); Mean Corpuscular Volume 104 fL (80-100); Mean Platelet Volume 10.9 fL (9.1-12.4); NEUTROPHILS ABSOLUTE AUTO 6.42 K/mm3 (1.96-9.15); NEUTROPHILS PERCENT AUTO 85 % (41-73); NRBC ABSOLUTE 0.03 K/mm3 (0.00-0.02); NRBC Auto 0.4 /100 WBC (0.0-0.2); Platelet Count 117 K/mm3 (150-400); RDW Coefficient Variation 15.1 % (11.7-14.2); Red Blood Cell Count 2.82 M/mm3 (3.80-5.20); White Blood Cell Count 7.58 K/mm3 (4.00-11.30)
[2022-08-05 04:48] LABS: Albumin, Blood 2.1 g/dL (3.4-5.0); Anion Gap 1 mmol/L (6-16); Blood Urea Nitrogen 25 mg/dL (8-24); Bun/Creatinine Ratio 59.5 (12.0-20.0); CO2, Blood 33 mmol/L (21-32); Calcium, Blood 8.7 mg/dL (8.5-10.1); Chloride, Blood 110 mmol/L (98-108); Creatinine, Blood 0.42 mg/dL (0.40-1.00); Glomerular Filtration Rate 104 (60-); Glucose, Blood 95 mg/dL (70-99); Potassium, Blood 3.7 mmol/L (3.5-5.5); Sodium, Blood 144 mmol/L (136-145)
--- NOTE | 2022-08-05 06:02 | NUR ---
SHIFT SUMMARY PATIENT ALERT AND ORIENTED, ABLE TO MAKE NEEDS KNOWN TO STAFF. VSS, PATIENT ON 2L NC WITH O2 SAT >90%. NO SIGNIFICANT TELE EVENTS OVERNIGHT. PATIENT STANDBY ASSIST TO BEDSIDE COMMODE, ADEQUATE OUTPUT. CHANGED DRESSING TO ABDOMEN x1. Q2 TURNS. NO OTHER CHANGES, WILL REPORT TO DAY SHIFT RN.
--- NOTE | 2022-08-05 10:37 | NUR ---
PHYSICIAN COMMUNICATION PATIENT HAD AN EPISODE WHERE SHE DESATED INTO THE 50'S AND REQUIRED TO BE PLACED ON A NONREBREATHER AT 10-15 LITERS TO MAINTAIN O2 SATURATIONS >90%. THIS RESOLVED WHEN THE PATIENT COUGHED UP A LARGE AMOUNT OF SPUTUM WITH BRIGHT RED BLOOD. PATIENT IS CURRENTLY BACK ON 2 LITERS O2 SATING IN THE 90'S AND HAS A WET, CONGESTED COUGH. DR HUGHES NOTIFIED, 600 MG MUCINEX PO BID AND A SPUTUM CULTURE WERE ORDERED.
--- NOTE | 2022-08-05 18:57 | NUR ---
SHIFT SUMMARY PATIENT ALERT AND ORIENTED. NO ADDITIONAL ACUTE ISSUES NOTED SINCE LAST NOTE. REFUSED LUNCH AND DINNER. HAS SLEPT ALL AFTERNOON. DENIES ANY NEEDS. CALL LIGHT WITHIN REACH.
--- NOTE | 2022-08-05 21:12 | NUR ---
PT TRANSFER PT TRANSFERRED TO ROOM 362 WITH BELONGINGS AND CHART. REPORT GIVEN TO CLAUDINE CAR. PT BROUGHT BY BED BY THIS RN AND JORGE CAR.
--- NOTE | 2022-08-06 03:28 | NUR ---
SHIFT SUMMARY PT TRANSFERED FROM U20 AROUND 2100. ASSESSMENT COMPLETE. PT REMAINS ON 2LO2 NC, THAT IS HER BASELINE. SPO2 >92%. PT HAS COUGH WITH SMALL AMOUNT OF SPUTUM, NO BLOOD IN SPUTUM OBSERVED. PT UP TO BSC, SBA FWW. COLOSTOMY IN PLACE, APPLIANCE INTACT. DRSG TO ABDOMEN C/D/I. PT DENIES PAIN OR ANY OTHER S/S OF DISTRESS. CONTINUES IV ABX. CONTINUES Q2 TURNS COCCYX FRAGILE/RED. PT ORIENTED X4, ABLE TO MAKE NEEDS KNOWN. CALL LIGHT IN REACH.
[2022-08-06 04:31] LABS: BASOPHILS ABSOLUTE AUTO 0.01 K/mm3 (0.00-0.23); BASOPHILS PERCENT AUTO 0 % (0-2); EOSINOPHILS ABSOLUTE AUTO 0.04 K/mm3 (0.00-0.68); EOSINOPHILS PERCENT AUTO 1 % (0-6); Hematocrit 27.4 % (33.0-51.0); Hemoglobin 8.6 g/dL (11.5-16.0); IMMATURE GRAN ABSOLUTE AUTO 0.08 K/mm3 (0.00-0.10); IMMATURE GRAN PERCENT AUTO 1 % (0-1); LYMPHOCYTES ABSOLUTE AUTO 0.47 K/mm3 (0.84-5.20); LYMPHOCYTES PERCENT AUTO 6 % (21-46); MONOCYTES PERCENT AUTO 4 % (4-13); Mean Corpuscular HGB 32.2 pg (26.0-34.0); Mean Corpuscular HGB Conc 31.4 g/dL (31.5-36.5); Mean Corpuscular Volume 103 fL (80-100); Mean Platelet Volume 11.4 fL (9.1-12.4); NEUTROPHILS ABSOLUTE AUTO 7.55 K/mm3 (1.96-9.15); NEUTROPHILS PERCENT AUTO 89 % (41-73); NRBC ABSOLUTE 0.02 K/mm3 (0.00-0.02); NRBC Auto 0.2 /100 WBC (0.0-0.2); Platelet Count 109 K/mm3 (150-400); RDW Coefficient Variation 15.3 % (11.7-14.2); Red Blood Cell Count 2.67 M/mm3 (3.80-5.20); White Blood Cell Count 8.45 K/mm3 (4.00-11.30)
[2022-08-06 04:50] LABS: Albumin, Blood 2.1 g/dL (3.4-5.0); Anion Gap 2 mmol/L (6-16); Blood Urea Nitrogen 17 mg/dL (8-24); Bun/Creatinine Ratio 43.5 (12.0-20.0); CO2, Blood 35 mmol/L (21-32); Calcium, Blood 8.2 mg/dL (8.5-10.1); Chloride, Blood 106 mmol/L (98-108); Creatinine, Blood 0.39 mg/dL (0.40-1.00); Glomerular Filtration Rate 106 (60-); Glucose, Blood 82 mg/dL (70-99); Phosphorus, Blood 2.4 mg/dL (2.5-4.9); Potassium, Blood 3.7 mmol/L (3.5-5.5); Sodium, Blood 143 mmol/L (136-145)
--- NOTE | 2022-08-06 18:37 | NUR ---
SHIFT SUMMARY UP TO COMMODE WITH 1 PERSON ASSIST. APPEARS QUITE WEAK AND FRAIL WHEN MOVING ABOUT. ABLE WITH MIN ASSIST TURN HERSELF IN BED. REQUESTING MAGIC MOUTHWASH THIS AFTERNOON FOR ORAL SORES. SISTER AND SON IN TO VISIT TODAY. VERY SOB WITH ANY ACTIVITY BUT MOVES SLOWLY TO CONSERVE ENERGY. ANXIOUS THIS MORNING. COUGHING RED BROWN SPUTUM UP. DRESSING TO LOWER ABDOMENAL WOUND CHANGED WITH BROWN DISCHARGE. REDDNED AREA.
[2022-08-07 05:07] LABS: BASOPHILS ABSOLUTE AUTO 0.01 K/mm3 (0.00-0.23); BASOPHILS PERCENT AUTO 0 % (0-2); EOSINOPHILS ABSOLUTE AUTO 0.03 K/mm3 (0.00-0.68); EOSINOPHILS PERCENT AUTO 0 % (0-6); Hematocrit 26.6 % (33.0-51.0); Hemoglobin 8.2 g/dL (11.5-16.0); IMMATURE GRAN ABSOLUTE AUTO 0.06 K/mm3 (0.00-0.10); IMMATURE GRAN PERCENT AUTO 1 % (0-1); LYMPHOCYTES ABSOLUTE AUTO 0.59 K/mm3 (0.84-5.20); LYMPHOCYTES PERCENT AUTO 7 % (21-46); MONOCYTES ABSOLUTE AUTO 0.27 K/mm3 (0.16-1.47); MONOCYTES PERCENT AUTO 3 % (4-13); Mean Corpuscular HGB 31.3 pg (26.0-34.0); Mean Corpuscular HGB Conc 30.8 g/dL (31.5-36.5); Mean Corpuscular Volume 102 fL (80-100); Mean Platelet Volume 11.1 fL (9.1-12.4); NEUTROPHILS ABSOLUTE AUTO 7.09 K/mm3 (1.96-9.15); NEUTROPHILS PERCENT AUTO 88 % (41-73); NRBC ABSOLUTE 0.02 K/mm3 (0.00-0.02); NRBC Auto 0.2 /100 WBC (0.0-0.2); Platelet Count 150 K/mm3 (150-400); RDW Coefficient Variation 15.2 % (11.7-14.2); Red Blood Cell Count 2.62 M/mm3 (3.80-5.20); White Blood Cell Count 8.05 K/mm3 (4.00-11.30)
--- NOTE | 2022-08-07 05:23 | NUR ---
Patient AAOX4, slept well overnight. NC 2L at baseline, sats remained above 92%, SOB noted when transferring to bedside commode, resolved once settled back in bed. Colostomy c/d/i. Dependent edema noted in all extremities. No acute safety concerns at this time.
[2022-08-07 05:50] LABS: Iron Serum 28 ug/dL (50-170); Percent Saturation 12.2 % (15.0-50.0); Total Iron Binding Capacity 230 ug/dL (250-450)
[2022-08-07 06:52] LABS: Anion Gap 3 mmol/L (6-16); Blood Urea Nitrogen 17 mg/dL (8-24); Bun/Creatinine Ratio 42.6 (12.0-20.0); CO2, Blood 35 mmol/L (21-32); Calcium, Blood 8.2 mg/dL (8.5-10.1); Chloride, Blood 103 mmol/L (98-108); Ferritin, Serum 75 ng/mL (8-252); Glomerular Filtration Rate 105 (60-); Glucose, Blood 76 mg/dL (70-99); Phosphorus, Blood 2.8 mg/dL (2.5-4.9); Potassium, Blood 3.5 mmol/L (3.5-5.5); Sodium, Blood 141 mmol/L (136-145)
--- NOTE | 2022-08-07 18:44 | NUR ---
SHIFT SUMMARY PT UP TO BSC TODAY. DRESSING CHANGED TO LOWER ABDOMEN WITH PETROLEUM GAUZE PLACED ON RED IRRITATED AREA FOR PROTECTION AND THEN ABD DRESSING OVER THE TOP FOR ABSORBING. HAS BROWN THICK DISCHARGE WITH HAS MINIMAL TO NO ODOR. SITTING UP ON SIDE OF BED TO EAT SUPPER. SISTER IN TO VISIT THIS AFTERNOON.
[2022-08-08 05:30] LABS: BASOPHILS ABSOLUTE AUTO 0.01 K/mm3 (0.00-0.23); BASOPHILS PERCENT AUTO 0 % (0-2); EOSINOPHILS ABSOLUTE AUTO 0.04 K/mm3 (0.00-0.68); EOSINOPHILS PERCENT AUTO 1 % (0-6); Hematocrit 24.8 % (33.0-51.0); Hemoglobin 7.8 g/dL (11.5-16.0); IMMATURE GRAN ABSOLUTE AUTO 0.04 K/mm3 (0.00-0.10); IMMATURE GRAN PERCENT AUTO 1 % (0-1); LYMPHOCYTES PERCENT AUTO 8 % (21-46); MONOCYTES ABSOLUTE AUTO 0.18 K/mm3 (0.16-1.47); MONOCYTES PERCENT AUTO 2 % (4-13); Mean Corpuscular HGB 32.5 pg (26.0-34.0); Mean Corpuscular HGB Conc 31.5 g/dL (31.5-36.5); Mean Corpuscular Volume 103 fL (80-100); Mean Platelet Volume 10.9 fL (9.1-12.4); NEUTROPHILS ABSOLUTE AUTO 7.13 K/mm3 (1.96-9.15); NEUTROPHILS PERCENT AUTO 89 % (41-73); Platelet Count 186 K/mm3 (150-400); RDW Coefficient Variation 15.4 % (11.7-14.2); RDW Standard Deviation 56.8 fL (35.1-46.3)
[2022-08-08 06:14] LABS: Anion Gap 2 mmol/L (6-16); Blood Urea Nitrogen 18 mg/dL (8-24); Bun/Creatinine Ratio 38.2 (12.0-20.0); CO2, Blood 37 mmol/L (21-32); Calcium, Blood 7.7 mg/dL (8.5-10.1); Chloride, Blood 102 mmol/L (98-108); Creatinine, Blood 0.47 mg/dL (0.40-1.00); Glomerular Filtration Rate 101 (60-); Glucose, Blood 71 mg/dL (70-99); Potassium, Blood 3.6 mmol/L (3.5-5.5); Sodium, Blood 141 mmol/L (136-145)
[2022-08-08 10:54] LABS: Stool Occult Blood Guaiac 1 Pos (Neg)
--- NOTE | 2022-08-08 18:48 | NUR ---
SHIFT SUMMARY: STOOL GUAIAC POSITIVE. HEPARIN FOR MEDIPORT LOCK D/C'D BY PROVIDER, NOW HAS NS @ 30 ML/HR FOR TKO. NO EVENTS ON TELEMETRY. COLOSTOMY WITH GOOD OUTPUT. DRESSING ON ABDOMINAL WOUND CD&I; INPATIENT WOUND CONSULT PLACED. GETTING UP TO BSC WITH ASSISTANCE, CALLS APPROPRIATELY. DENIES PAIN. SCD'S PLACED. VERY WEAK IN ALL EXTREMITIES, WORKED WITH PHYSICAL THERAPY. O2 @ 2 L/MIN NC, WHICH IS HER BASELINE. APPETITE IS POOR.
--- NOTE | 2022-08-09 05:02 | NUR ---
Summary: No acute events overnight. Patient on 2L NC her baseline O2. Started on oral antibiotics tonight. 1x assist up to commode. Colostomy very productive overnight. Vss. No acute events. Turned in bed Q2HR. Call light in reach. On isolation for COVID.
[2022-08-09 05:33] LABS: BASOPHILS ABSOLUTE AUTO 0.02 K/mm3 (0.00-0.23); BASOPHILS PERCENT AUTO 0 % (0-2); EOSINOPHILS PERCENT AUTO 1 % (0-6); Hematocrit 28.3 % (33.0-51.0); Hemoglobin 8.6 g/dL (11.5-16.0); IMMATURE GRAN ABSOLUTE AUTO 0.08 K/mm3 (0.00-0.10); IMMATURE GRAN PERCENT AUTO 1 % (0-1); LYMPHOCYTES ABSOLUTE AUTO 0.67 K/mm3 (0.84-5.20); LYMPHOCYTES PERCENT AUTO 6 % (21-46); MONOCYTES ABSOLUTE AUTO 0.25 K/mm3 (0.16-1.47); MONOCYTES PERCENT AUTO 2 % (4-13); Mean Corpuscular HGB 32.2 pg (26.0-34.0); Mean Corpuscular HGB Conc 30.4 g/dL (31.5-36.5); Mean Corpuscular Volume 106 fL (80-100); Mean Platelet Volume 10.4 fL (9.1-12.4); NEUTROPHILS ABSOLUTE AUTO 9.43 K/mm3 (1.96-9.15); NEUTROPHILS PERCENT AUTO 89 % (41-73); Platelet Count 275 K/mm3 (150-400); RDW Standard Deviation 61.1 fL (35.1-46.3); Red Blood Cell Count 2.67 M/mm3 (3.80-5.20); White Blood Cell Count 10.55 K/mm3 (4.00-11.30)
[2022-08-09 05:59] LABS: Anion Gap 2 mmol/L (6-16); Blood Urea Nitrogen 18 mg/dL (8-24); Bun/Creatinine Ratio 43.5 (12.0-20.0); CO2, Blood 35 mmol/L (21-32); Calcium, Blood 8.2 mg/dL (8.5-10.1); Chloride, Blood 104 mmol/L (98-108); Creatinine, Blood 0.41 mg/dL (0.40-1.00); Glomerular Filtration Rate 104 (60-); Glucose, Blood 74 mg/dL (70-99); Phosphorus, Blood 2.6 mg/dL (2.5-4.9); Potassium, Blood 3.6 mmol/L (3.5-5.5); Sodium, Blood 141 mmol/L (136-145)
--- NOTE | 2022-08-09 15:35 | NUR ---
PATIENT ANXIOUS, MEDICATED WITH ATIVAN, REPORTS RELIEF NOW FROM IT, CALL LIGHT WITH IN REACH, OSTOMY CARE DONE, STAND BY ASSIST FOR TRANSFERS
--- NOTE | 2022-08-09 17:48 | NUR ---
ALERT AND ORIENTED, MAKES NEEDS KNOWN, ECHO DONE AT BEDSIDE, PATIENTS HEART RATE INCREASED TO 160-170, NO MOVEMENT INDUCED THE TACHYCARDIA, EKG DONE WITH SOME ABNORMALITIES, DR LAWLER AWARE, PATIENT HAS A CARDIAC HISTORY OF TACHYCARDIA AND ANXIETY. MEDICATED WITH ATIVAN, PATIENT REPORTS RELIEF HR 70, PLEASANT AND COOPERATIVE TO CARE, OSTOMY CARED FOR BY PATIENT AND STAFF, TRASNFERRED STAND BY ASSIST TO BSC, CALL LIGHT WITH IN REACH, WILL RELAY TO PM RN
[2022-08-10 05:12] LABS: Bun/Creatinine Ratio 55.2 (12.0-20.0); Calcium, Blood 7.9 mg/dL (8.5-10.1); Creatinine, Blood 0.36 mg/dL (0.40-1.00); Magnesium, Blood 2.1 mg/dL (1.6-2.4); Potassium, Blood 3.7 mmol/L (3.5-5.5)
--- NOTE | 2022-08-10 05:24 | NUR ---
Summary: No acute events overnight. Patient on tele. On baseline O2 2L NC. Changed dressing on lower abdomen start of shift. Colostomy draining. Ambulates to commode with 1x assist. AOx4. Call light in reach. Repositioned in bed throughout night. IV fluids to KVO on port.
--- NOTE | 2022-08-10 17:42 | NUR ---
ALERT AND ORIENTED, NO ACUTE CHANGES, COLOSTOMY EMPTIED, LOWER ABD FISTUAL REDRESSED, SKIN AROUND THE OLF FISTUAL IS IRRITATED AND READY, BROWN/BM SMALL AMOUNT COMING OUT OF FISTULA, PATIENT MAKES NEEDS KNOWN, TELE DISCOTNINUED, MEDICATED FOR ANXIETY X1 TODAY, STAND BY ASSIST TO BSC AND CHAIR, WILL RELAY TO PM JOSEP
--- NOTE | 2022-08-11 06:13 | NUR ---
Summary: No acute events overnight. On baseline O2 2L NC. Ambulates to commode with 1x assist. AOx4. Call light in reach. Repositioned in bed throughout night. IV fluids to KVO on port.
--- NOTE | 2022-08-11 16:39 | NUR ---
PATIENT IS ALERT AND ORIENTED AND COOPERATIVE WITH CARE. C/O IN HER RLQ WHERE THE WOUND IS. WOUND CARE COMPLETED TODAY WHICH REVEALED BROWN STOOL LIKE SUBSTANCE OOZING FROM THE WOUND. DR. LAWLER NOTIFIED OF THIS AND HE SAID HE WOULD ORDER A FISTULAGRAM. PATIENT HAS BEEN MEDICATED PER EMAR FOR PAIN AND NAUSEA. THE PATIENT'S CODE STATUS HAS BEEN CHANGED TO LIMITED CODE ALLOWING MEDICATIONS AND DEFIBRILATION ONLY. THE PATIENT'S SISTER VISITED THIS AFTERNOON. WILL CONTINUE TO MONITOR
[2022-08-12 04:40] LABS: BASOPHILS ABSOLUTE AUTO 0.02 K/mm3 (0.00-0.23); BASOPHILS PERCENT AUTO 0 % (0-2); EOSINOPHILS ABSOLUTE AUTO 0.11 K/mm3 (0.00-0.68); EOSINOPHILS PERCENT AUTO 2 % (0-6); Hematocrit 26.7 % (33.0-51.0); IMMATURE GRAN PERCENT AUTO 2 % (0-1); LYMPHOCYTES ABSOLUTE AUTO 0.48 K/mm3 (0.84-5.20); LYMPHOCYTES PERCENT AUTO 10 % (21-46); MONOCYTES ABSOLUTE AUTO 0.38 K/mm3 (0.16-1.47); MONOCYTES PERCENT AUTO 8 % (4-13); Mean Corpuscular Volume 107 fL (80-100); Mean Platelet Volume 10.1 fL (9.1-12.4); NEUTROPHILS ABSOLUTE AUTO 3.52 K/mm3 (1.96-9.15); NEUTROPHILS PERCENT AUTO 76 % (41-73); Platelet Count 386 K/mm3 (150-400); RDW Coefficient Variation 16.6 % (11.7-14.2); White Blood Cell Count 4.61 K/mm3 (4.00-11.30)
--- NOTE | 2022-08-12 05:17 | NUR ---
AOX4, PLEASANT, MIN ASSIST TO BSC NEEDED. SCANT COLOSTOMY OUTPUT. MONITOR RLQ DRESSING AND CHANGE NEEDED WHEN SATURATES. STABLE ON 2L O2 NC. NO EVENTS OVER NIGHT. CALL LIGHT IN REACH, CALLS APPROPRIATELY. PENDING SURGERY TEAM ASSESSMENT OF RLQ FISTULA.
[2022-08-12 05:27] LABS: Bun/Creatinine Ratio 32.8 (12.0-20.0); Calcium, Blood 8.2 mg/dL (8.5-10.1); Creatinine, Blood 0.55 mg/dL (0.40-1.00); Potassium, Blood 4.4 mmol/L (3.5-5.5)
--- NOTE | 2022-08-12 17:16 | NUR ---
SHIFT SUMMARY UP TO CHAIR TODAY FOR MEAL AND MIN ASSIST WITH TRANSFER TO BSC. DRESSING TO LOWER ABDOMEN CHANGED THIS MORNING WITH THICK BROWN DISCHARGE. BARRIER CREAM APPLIED TO RED IRRITATED SKIN AROUND OPENING WHICH PT REPORTED FELT SOOTHING. SISTER IN TO VISIT THIS AFTERNOON. SOB WITH ACTIVITY BUT IMPROVED FROM LAST WEEK.
--- NOTE | 2022-08-13 05:14 | NUR ---
ANXIOUS ABOUT FISTULA WITH FECAL OUTPUT, REQUESTS TO SPEAK WITH A DOCTOR ABOUT ABOUT IT TODAY. ALSO ANXIOUS THAT COLOSTOMY OUTPUT MIGHT REENTER THE BODY THROUGH OSTOMY AND EXIT VIA FISTULA. 575 MLS OF THICK, SOFT OSTOMY OUTPUT. UP TO BSC WITH MIN ASSIST. A&OX4, PLEASANT. DENIES SIGNIFICANT PAIN LAST NIGHT, NO REQUESTS FOR PRN PAIN MEDS. CALLS APPROPRIATELY.
[2022-08-13] MEDS ORDERED: METO25 PO (13:11)
[2022-08-13] MEDS ORDERED: DILTIAZEM 24HR120 M2 PO (13:12)
[2022-08-13] MEDS ORDERED: Celexa20 MG PO (13:13)
[2022-08-13] MEDS ORDERED: FLUT1DIS5 INH (13:15)
[2022-08-13] MEDS ORDERED: SENN187 PO (13:21)
--- NOTE | 2022-08-13 13:45 | NUR ---
REPORT CALLED TO PETE AT [facility]. PT ASSISTED TO W/C WITH [facility]. TO [facility] VIA W/C.
== END 2022-08-13 13:47 | DRG 177 ==
LOC: ER 10:28 → MEDS 12:46 → PCU 12:46 → MEDS 08-05 21:01
PROVIDERS: Family Medicine; Internal Medicine; Student in an Organized Health Care Education/Training Program; ADMIT Hospitalist
DX: J69.0 Pneumonitis due to inhalation of food and vomit (principal); E43 Unspecified severe protein-calorie malnutrition; U07.1 COVID-19; J96.21 Acute and chronic respiratory failure with hypoxia; D84.89 Other immunodeficiencies; Z68.1 Body mass index [BMI] 19.9 or less, adult; E87.0 Hyperosmolality and hypernatremia; Z66 Do not resuscitate; K63.2 Fistula of intestine; F32.A Depression, unspecified; I48.0 Paroxysmal atrial fibrillation; I10 Essential (primary) hypertension; K58.9 Irritable bowel syndrome, unspecified; F41.9 Anxiety disorder, unspecified; G25.81 Restless legs syndrome; E16.2 Hypoglycemia, unspecified; E87.6 Hypokalemia; D69.6 Thrombocytopenia, unspecified; D63.1 Anemia in chronic kidney disease; E61.1 Iron deficiency; J43.9 Emphysema, unspecified; Z99.81 Dependence on supplemental oxygen; Z93.3 Colostomy status; Z90.49 Acquired absence of other specified parts of digestive tract; Z79.01 Long term (current) use of anticoagulants; Z79.899 Other long term (current) drug therapy
CPT/HCPCS: 0241U; 36415; 71045; 74177; 80048; 80053; 80069; 82272; 82607; 82728; 82746; 82803; 82947; 83540; 83550; 83605; 83735; 83880; 84145; 84443; 85014; 85018; 85025; 85027; 87040; 87070; 87205; 93005; 93010; 93306; 94640; 94664; 94760; 94761; 94762; 96365; 96367; 96375; 97110; 97116; 97162; 97530; 99285-25; A9270; C9113; J0696; J1642; J1940; J2405; J2916; J3475; J7030; Q9967

== ENCOUNTER 2022-09-05 12:41 | Inpatient (IN) | payer MEDICARE, OTHER ==
[~2022-09-05] VITALS: Ht 149.9 cm; Wt 40.8 kg
[~2022-09-05 12:41] MED LIST changes: +Celexa20 MG PO; +DILTIAZEM 24HR120 M2 PO; +HYDROXYZINE HCL 25 MG; +METO25 PO; +POTASSIUM CL ER 10 M; +SENN187 PO
[2022-09-05 13:47] LABS: BASOPHILS ABSOLUTE AUTO 0.03 K/mm3 (0.00-0.23); BASOPHILS PERCENT AUTO 0 % (0-2); EOSINOPHILS PERCENT AUTO 0 % (0-6); Hemoglobin 12.7 g/dL (11.5-16.0); IMMATURE GRAN PERCENT AUTO 1 % (0-1); LYMPHOCYTES ABSOLUTE AUTO 0.92 K/mm3 (0.84-5.20); LYMPHOCYTES PERCENT AUTO 5 % (21-46); MONOCYTES ABSOLUTE AUTO 0.62 K/mm3 (0.16-1.47); MONOCYTES PERCENT AUTO 4 % (4-13); Mean Corpuscular HGB 32.3 pg (26.0-34.0); Mean Corpuscular HGB Conc 31.8 g/dL (31.5-36.5); Mean Corpuscular Volume 102 fL (80-100); Mean Platelet Volume 9.7 fL (9.1-12.4); NEUTROPHILS ABSOLUTE AUTO 15.51 K/mm3 (1.96-9.15); NEUTROPHILS PERCENT AUTO 90 % (41-73); Platelet Count 384 K/mm3 (150-400); RDW Coefficient Variation 14.6 % (11.7-14.2); Red Blood Cell Count 3.93 M/mm3 (3.80-5.20); White Blood Cell Count 17.18 K/mm3 (4.00-11.30)
[2022-09-05 14:21] LABS: Albumin, Blood 2.6 g/dL (3.4-5.0); Albumin/Globulin Ratio 0.8 (0.8-1.8); Bilirubin, Total 0.4 mg/dL (0.1-1.0); Bun/Creatinine Ratio 77.7 (12.0-20.0); Calcium, Blood 8.1 mg/dL (8.5-10.1); Creatinine, Blood 0.39 mg/dL (0.40-1.00); Globulin, Blood 3.2 g/dL (2.2-4.0); Potassium, Blood 4.3 mmol/L (3.5-5.5); Total Protein, Blood 5.8 g/dL (6.4-8.2)
[2022-09-05 14:56] LABS: Source, Urine Voided
[2022-09-05 15:07] LABS: Appearance, Urine Clear (Clear); Bilirubin, Urine Neg (Neg); Blood, Urine Neg (Neg); Color, Urine Yellow (P-Yellow); Glucose Qualitative, Urine Neg (Neg); Ketones, Urine Neg (Neg); Leukocyte Esterase, Urine 1+ (Neg); Nitrite, Urine Neg (Neg); Protein, Urine 1+ (Neg); Specific Gravity, Urine 1.025 (1.003-1.022); Urobilinogen, Urine NORM (Normal)
[2022-09-05 15:15] LABS: Bacteria Few /hpf; Red Blood Cells, Urine 0-2 /hpf (0-2); Squamous Epithelial Cells Few /hpf (Few)
[2022-09-06 04:25] LABS: Bun/Creatinine Ratio 66.8 (12.0-20.0); Calcium, Blood 8.2 mg/dL (8.5-10.1); Creatinine, Blood 0.42 mg/dL (0.40-1.00); Potassium, Blood 4.2 mmol/L (3.5-5.5)
--- NOTE | 2022-09-06 08:48 | NUR ---
SUMMARY ADMIT TO 229. NG PATENT TO LOW INT SX.NO N/V SINCE ARRIVAL TO .
[2022-09-06 11:37] LABS: BASOPHILS ABSOLUTE AUTO 0.04 K/mm3 (0.00-0.23); BASOPHILS PERCENT AUTO 0 % (0-2); EOSINOPHILS ABSOLUTE AUTO 0.02 K/mm3 (0.00-0.68); EOSINOPHILS PERCENT AUTO 0 % (0-6); Hemoglobin 10.3 g/dL (11.5-16.0); IMMATURE GRAN ABSOLUTE AUTO 0.04 K/mm3 (0.00-0.10); IMMATURE GRAN PERCENT AUTO 0 % (0-1); LYMPHOCYTES ABSOLUTE AUTO 1.11 K/mm3 (0.84-5.20); LYMPHOCYTES PERCENT AUTO 11 % (21-46); MONOCYTES PERCENT AUTO 5 % (4-13); Mean Corpuscular HGB 32.2 pg (26.0-34.0); Mean Corpuscular HGB Conc 31.2 g/dL (31.5-36.5); Mean Corpuscular Volume 103 fL (80-100); NEUTROPHILS ABSOLUTE AUTO 8.76 K/mm3 (1.96-9.15); NEUTROPHILS PERCENT AUTO 84 % (41-73); Platelet Count 317 K/mm3 (150-400); RDW Coefficient Variation 14.7 % (11.7-14.2); RDW Standard Deviation 56.2 fL (35.1-46.3); White Blood Cell Count 10.47 K/mm3 (4.00-11.30)
--- NOTE | 2022-09-06 17:58 | NUR ---
SUMMARY C/O ABD PAIN TODAY, MEDICATED PER ORDERS, OOB TO CHAIR X2 W/ STANDBY ASSIST, MARIA EUGENIA WELL, DENIES ANY NAUSEA, NGT TO LIS DRAINING GREENISH BROWN DRAINAGE W/ BROWN PARTICLES, OSTOMY HAD SOFT YELLOW STOOL THIS EVENING, NO OTHER CHANGES THIS SHIFT.
[2022-09-07 06:02] LABS: BASOPHILS ABSOLUTE AUTO 0.04 K/mm3 (0.00-0.23); BASOPHILS PERCENT AUTO 1 % (0-2); EOSINOPHILS ABSOLUTE AUTO 0.03 K/mm3 (0.00-0.68); EOSINOPHILS PERCENT AUTO 1 % (0-6); Hematocrit 32.6 % (33.0-51.0); IMMATURE GRAN ABSOLUTE AUTO 0.03 K/mm3 (0.00-0.10); IMMATURE GRAN PERCENT AUTO 1 % (0-1); LYMPHOCYTES ABSOLUTE AUTO 0.84 K/mm3 (0.84-5.20); LYMPHOCYTES PERCENT AUTO 13 % (21-46); MONOCYTES ABSOLUTE AUTO 0.28 K/mm3 (0.16-1.47); MONOCYTES PERCENT AUTO 4 % (4-13); Mean Corpuscular HGB 31.6 pg (26.0-34.0); Mean Corpuscular HGB Conc 30.7 g/dL (31.5-36.5); Mean Corpuscular Volume 103 fL (80-100); Mean Platelet Volume 9.9 fL (9.1-12.4); NEUTROPHILS ABSOLUTE AUTO 5.31 K/mm3 (1.96-9.15); NEUTROPHILS PERCENT AUTO 81 % (41-73); Platelet Count 273 K/mm3 (150-400); RDW Coefficient Variation 14.6 % (11.7-14.2); RDW Standard Deviation 55.3 fL (35.1-46.3); Red Blood Cell Count 3.16 M/mm3 (3.80-5.20); White Blood Cell Count 6.53 K/mm3 (4.00-11.30)
[2022-09-07 06:29] LABS: Albumin, Blood 2.3 g/dL (3.4-5.0); Anion Gap 5 mmol/L (6-16); Blood Urea Nitrogen 28 mg/dL (8-24); Bun/Creatinine Ratio 83.6 (12.0-20.0); CO2, Blood 32 mmol/L (21-32); Chloride, Blood 105 mmol/L (98-108); Creatinine, Blood 0.34 mg/dL (0.40-1.00); Glomerular Filtration Rate 109 (60-); Glucose, Blood 61 mg/dL (70-99); Phosphorus, Blood 3.1 mg/dL (2.5-4.9); Potassium, Blood 3.5 mmol/L (3.5-5.5); Sodium, Blood 142 mmol/L (136-145)
--- NOTE | 2022-09-07 08:34 | NUR ---
SUMMARY LARGE VOLUME OUTPUT PER NG,ALSO PASSED 1000ML + OUT OSTOMY.PT REQUESTED ATIVAN 1 MG TONIGHT.REPORTED SHE WAS TAKING ATIVAN 1 MG AT HOME,AND PT ALSO HAD FEW BEAT RUN OF SVT TOUCHING 150 TONIGHT WHILE ASYMPTOMATIC.I CALLED BERNIE AND ATIVAN ORDERED,HOWEVER,PT LATER VERB SHE ACTUALLY MIGHT BE MISTAKEN AND ONLY TAKE 0.5 MG.I GAVE 0.5 MG THIS AM PER HER REQUEST.
--- NOTE | 2022-09-07 15:30 | NUR ---
DR. BEST ROUNDED PER DR. BEST OK TO REMOVE NG TUBE AND START ON CLEAR LIQUIDS. NG TUBE REMOVED, PT TOLERATED WELL. PT PROVIDED WITH CLEAR LIQUIDS. WILL CONTINUE TO MONITOR.
--- NOTE | 2022-09-07 16:08 | NUR ---
ANXIETY PT REPORTED FEELING ANXIOUS. DR. HUGHES NOTIFIED AND ATIVAN GIVEN PER ORDER.
--- NOTE | 2022-09-07 16:32 | NUR ---
SHIFT SUMMARY PT HAS HAD RETURN OF BOWEL FUNCTION AND HAS HAD GOOD OUTPUT FROM HER OSTOMY THIS SHIFT. PT REPORTS ONLY MILD NAUSEA AND ABD TENDERNESS. NG TUBE WAS REMOVED AND PT STARTED ON SIPS OF CLEAR LIQUIDS. PT IS A SBA FOR ASSISTANCE WITH LINES AND TUBES WHEN OOB. WILL CONTINUE TO MONITOR.
[2022-09-08 05:10] LABS: BASOPHILS ABSOLUTE AUTO 0.01 K/mm3 (0.00-0.23); BASOPHILS PERCENT AUTO 0 % (0-2); EOSINOPHILS ABSOLUTE AUTO 0.04 K/mm3 (0.00-0.68); EOSINOPHILS PERCENT AUTO 1 % (0-6); Hemoglobin 9.5 g/dL (11.5-16.0); IMMATURE GRAN ABSOLUTE AUTO 0.03 K/mm3 (0.00-0.10); IMMATURE GRAN PERCENT AUTO 1 % (0-1); LYMPHOCYTES ABSOLUTE AUTO 0.63 K/mm3 (0.84-5.20); LYMPHOCYTES PERCENT AUTO 13 % (21-46); MONOCYTES ABSOLUTE AUTO 0.24 K/mm3 (0.16-1.47); MONOCYTES PERCENT AUTO 5 % (4-13); Mean Corpuscular HGB 31.4 pg (26.0-34.0); Mean Corpuscular HGB Conc 30.6 g/dL (31.5-36.5); Mean Corpuscular Volume 102 fL (80-100); Mean Platelet Volume 9.6 fL (9.1-12.4); NEUTROPHILS ABSOLUTE AUTO 3.76 K/mm3 (1.96-9.15); NEUTROPHILS PERCENT AUTO 80 % (41-73); Platelet Count 244 K/mm3 (150-400); RDW Coefficient Variation 14.4 % (11.7-14.2); RDW Standard Deviation 54.7 fL (35.1-46.3); Red Blood Cell Count 3.03 M/mm3 (3.80-5.20); White Blood Cell Count 4.71 K/mm3 (4.00-11.30)
[2022-09-08 05:38] LABS: Albumin, Blood 2.1 g/dL (3.4-5.0); Anion Gap 2 mmol/L (6-16); Blood Urea Nitrogen 15 mg/dL (8-24); Bun/Creatinine Ratio 46.4 (12.0-20.0); CO2, Blood 33 mmol/L (21-32); Calcium, Blood 7.6 mg/dL (8.5-10.1); Chloride, Blood 105 mmol/L (98-108); Creatinine, Blood 0.32 mg/dL (0.40-1.00); Glomerular Filtration Rate 111 (60-); Glucose, Blood 132 mg/dL (70-99); Phosphorus, Blood 2.3 mg/dL (2.5-4.9); Potassium, Blood 2.8 mmol/L (3.5-5.5); Sodium, Blood 140 mmol/L (136-145)
--- NOTE | 2022-09-08 06:36 | NUR ---
PT VSS T/O NIGHT 2LO2 NC IN [address] PER BASELINE. OSTOMY W/SMALL AMT SOFT BOWN OUTPUT, NO SIGNIFICANT FLATUS NOTED IN APPLIANCE. PT DENIED ABD PAIN/N/V. REP ABD LESS DISTENDED, MARIA EUGENIA SIPS OF CLEAR LIQ. PT IS VOIDING URINE W/O DIFFICULTY. PT REP FEELING ANXIOUS THIS AM, ATIVAN GIVEN W/REP RELIEF. IVF CONT PER ORDERS. PT UP TO BSC W/SBA, REPOSITIONS SELF IN BED.
[2022-09-08] MEDS ORDERED: HYDHCL25 PO (08:59)
[2022-09-08] MEDS ORDERED: Flomax0.4 MG PO (09:00)
[2022-09-08] MEDS ORDERED: ELIQUIS5 M2 PO (09:02)
--- NOTE | 2022-09-08 12:56 | NUR ---
Spiritual care visit conducted. Patient is very tearful and clearly in spiritual distress. Pt explains about her family unit complications, her doubts and fears about God and her recent poor diagnosis/prognosis. Pt talks at length about her many questions about her illness progression, her desires for the fmaily to be at peace with one another and her spiritual journey. I normalize patient's feelings and struggles, reinforce helpful attitudes and practices and provide therapeutic listening, theological insights, gentle education counselor and prayer. Patient responded well and showed signs of increased peace. I will continue to remain available to patient and family.
--- NOTE | 2022-09-08 18:13 | NUR ---
SHIFT SUMMARY PT HAS HAD SMALL AMT THICK BROWN OUTPUT IN OSTOMY. PT HAS DENIED PAIN. NO N/V, TOLERATING SMALL AMT FULL LIQUID DIET FOR DINNER. PRESSURE ULCER TO L BUTTOCK UNSTAGEABLE WITH YELLOW DRAINAGE, DR HUGHES TO ASSESS TOMORROW TO SEE IF WOUND CARE REFFERAL APPROPRIATE, NEW MEPILEX DRESSING APPLIED. EGG CRATE IN PLACE ON BED, PT LAYING ON R SIDE, EDUCATED ON NEED TO SHIFT POSITION FREQUENTLY TO PREVENT FURTHER PRESSURE ULCERS, VERBALIZED UNDERSTANDING. PT DID GET UP TO CHAIR THIS AM AND WORKED WITH THERAPY.
[2022-09-09 06:33] LABS: BASOPHILS ABSOLUTE AUTO 0.01 K/mm3 (0.00-0.23); BASOPHILS PERCENT AUTO 0 % (0-2); EOSINOPHILS ABSOLUTE AUTO 0.07 K/mm3 (0.00-0.68); EOSINOPHILS PERCENT AUTO 2 % (0-6); Hemoglobin 9.8 g/dL (11.5-16.0); IMMATURE GRAN ABSOLUTE AUTO 0.02 K/mm3 (0.00-0.10); IMMATURE GRAN PERCENT AUTO 0 % (0-1); LYMPHOCYTES ABSOLUTE AUTO 0.76 K/mm3 (0.84-5.20); LYMPHOCYTES PERCENT AUTO 17 % (21-46); MONOCYTES ABSOLUTE AUTO 0.31 K/mm3 (0.16-1.47); MONOCYTES PERCENT AUTO 7 % (4-13); Mean Corpuscular HGB 31.4 pg (26.0-34.0); Mean Corpuscular HGB Conc 30.6 g/dL (31.5-36.5); Mean Corpuscular Volume 103 fL (80-100); Mean Platelet Volume 9.6 fL (9.1-12.4); NEUTROPHILS ABSOLUTE AUTO 3.32 K/mm3 (1.96-9.15); NEUTROPHILS PERCENT AUTO 74 % (41-73); Platelet Count 235 K/mm3 (150-400); RDW Coefficient Variation 14.1 % (11.7-14.2); RDW Standard Deviation 53.5 fL (35.1-46.3); Red Blood Cell Count 3.12 M/mm3 (3.80-5.20); White Blood Cell Count 4.49 K/mm3 (4.00-11.30)
[2022-09-09 06:50] LABS: Albumin, Blood 2.1 g/dL (3.4-5.0); Anion Gap 1 mmol/L (6-16); Blood Urea Nitrogen 12 mg/dL (8-24); Bun/Creatinine Ratio 50.6 (12.0-20.0); CO2, Blood 33 mmol/L (21-32); Calcium, Blood 7.5 mg/dL (8.5-10.1); Chloride, Blood 108 mmol/L (98-108); Creatinine, Blood 0.24 mg/dL (0.40-1.00); Glomerular Filtration Rate 119 (60-); Glucose, Blood 85 mg/dL (70-99); Phosphorus, Blood 2.5 mg/dL (2.5-4.9); Potassium, Blood 3.8 mmol/L (3.5-5.5); Sodium, Blood 142 mmol/L (136-145)
--- NOTE | 2022-09-09 07:09 | NUR ---
PT VSS T/O NIGHT; HR SINUS 80'S PER TELE MONITOR. OSTOMY W/INCREASED SOFT BROWN STOOL OUTPUT AND GAS. PT DENIED ABD PAIN/N/V, REP ABD FEELS LESS DISTENDED, REP FEELING HUNGRY THIS AM. PT VOIDING URINE W/O DIFFICULTY. PT REP SHE SLEPT WELL, DENIES FEELING ANXIOUS THIS AM.
--- NOTE | 2022-09-09 10:30 | NUR ---
ASSUMED CARE ASSISTED PT BACK TO BED. OSTOMY w/ GAS & DELMA COLORED STOOL. OSTOMY SITE OVER LARGE HERNIA. DENIES MUCH PAIN BUT REPORTS FEELING ANXIOUS. TELE: NSR IN s.
[2022-09-09] MEDS ORDERED: Ativan1 MG PO (12:41)
--- NOTE | 2022-09-09 14:55 | NUR ---
WOUND CARE UNSTAGEABLE PI TO COCCYX. WOUND CLEANSED NS, MEDIHONEY ALGINATE TO WOUND BED, COVERED BORDERED FOAM. REFERRAL TO WC ON DC PER PT REQUEST. PHOTO AND ASSESSMENT IN HARD CHART. WOUND CARE ORDERS IN [facility]
--- NOTE | 2022-09-09 18:35 | NUR ---
SHIFT SUMMARY PT HAS DONE BETTER TODAY ONCE ANXIETY MEDS ARE ADJUSTED TO HOME DOSAGE. UP TO CHAIR, WORKED w/ THERAPY, TOLERATING DIET, BUT NOT DRINKING MUCH FLUIDS. OSTOMY PASSING GAS & STOOL.
--- NOTE | 2022-09-10 07:36 | NUR ---
PT VSS T/O NIGHT. OSTOMY PUTTING OUT SOFT BROWN STOOL AND LARGE AMTS GAS. PT REP APPETITE INCREASING, HAD 2 PACKS OF CRACKERS AND PEANUT BUTTER, DENIED N/V/ABD PAIN. 2LO2 IN [address] PER BASELINE, PT REP FEELING LESS ANXIOUS W/HOME ATIVAN ORDERED. DRESSING TO LEFT BUTTOCK CDI. PT ASSISTED UP TO BSC W/SBA. PLAN TO D/C HOME W/HH AND WOUND CARE. BEDSIDE REPORT GIVEN TO Unruly LIRA RN.
[2022-09-10] MEDS ORDERED: JUVEN PACKET1 EAC3 PO (11:22)
[2022-09-10] MEDS ORDERED: MEDIHONEY TOP (11:24)
--- NOTE | 2022-09-10 11:40 | NUR ---
Spiritual care visit conducted. Patient is lying in bed and alert. Patient talks at length about her deep anguish over several troubling thoughts. She shares about pressure from family to fight the cancer and pursue every angle of healing and hope. Patient weeps as she shares about how exhausted she is physically, emotionally and mentally. She explains about the strained family dynamics and toll that is taking on her. Patient has unkind thoughts about her self that we also attempted to unppack. I normalized her feelings and emotional pain and provided gentle residential substance abuse counselor and prayer. Patient responded well and showed signs of greater compassion toward herself and solid resolve in how she will approach the days ahead. I will continue to remain available to patient and family.
[2022-09-10] MEDS ORDERED: OMEP20ER PO (13:30)
--- NOTE | 2022-09-10 13:59 | NUR ---
PT WAITING FOR DC TO GO HOME ON HOSPICE. PT IS RESTING COMF IN ROOM, NO NEEDS AT THIS TIME.
--- NOTE | 2022-09-10 15:05 | NUR ---
DISCHARGE NOTE: PATIENT WAS EDUCATED ON DISCHARGE INFORMATION AND SHE VERBALIZED UNDERSTANDING OF INFORMATION WITH NO FURTHER QUESTIONS AT THIS TIME. HER OSTOMY HAS LOOSE BROWN OUTPUT AND IS ALSO PRODUCING GAS. PATIENTS LEFT COCCYX IS C/D/I WITH THE BANDAGE MADE FROM THE WOUND CARE NURSE YESTERDAY. SHE IS TOLERATING PO INTAKE AND IS VOIDING. SHE IS A SBA WITH A FWW AND GAIT BELT. PATIENT HAS PERSONAL ITEMS IN THE ROOM GATHERED AND IS DRESSED. SHE IS BEING WHEELCHAIRED OUT TO HER SISTERS CAR TO BE TAKEN HOME.
== END 2022-09-10 15:10 | disposition home health service (06) | DRG 388 ==
LOC: ER 12:41 → SURS 19:21
PROVIDERS: Emergency Medicine; Family Medicine; ADMIT Internal Medicine
PROC: 0D9670Z Drainage of Stomach with Drainage Device, Via Natural or Artificial Opening (ICD-10-PCS; principal; 2022-09-05)
DX: K56.7 Ileus, unspecified (principal); E43 Unspecified severe protein-calorie malnutrition; L89.153 Pressure ulcer of sacral region, stage 3; F11.20 Opioid dependence, uncomplicated; J96.11 Chronic respiratory failure with hypoxia; R64 Cachexia; Z68.1 Body mass index [BMI] 19.9 or less, adult; I47.29 Other ventricular tachycardia; C20 Malignant neoplasm of rectum; C78.7 Secondary malignant neoplasm of liver and intrahepatic bile duct; C79.02 Secondary malignant neoplasm of left kidney and renal pelvis; Z66 Do not resuscitate; K20.90 Esophagitis, unspecified without bleeding; D72.828 Other elevated white blood cell count; D64.9 Anemia, unspecified; J44.9 Chronic obstructive pulmonary disease, unspecified; K58.9 Irritable bowel syndrome, unspecified; F32.A Depression, unspecified; F41.9 Anxiety disorder, unspecified; G25.81 Restless legs syndrome; G89.4 Chronic pain syndrome; I48.0 Paroxysmal atrial fibrillation; E16.2 Hypoglycemia, unspecified; E87.6 Hypokalemia; E88.09 Other disorders of plasma-protein metabolism, not elsewhere classified; E83.39 Other disorders of phosphorus metabolism; Z99.81 Dependence on supplemental oxygen; K21.9 Gastro-esophageal reflux disease without esophagitis; Z92.21 Personal history of antineoplastic chemotherapy; Z90.49 Acquired absence of other specified parts of digestive tract; Z93.3 Colostomy status; Z87.891 Personal history of nicotine dependence; Z79.01 Long term (current) use of anticoagulants; Z79.899 Other long term (current) drug therapy
CPT/HCPCS: 71045; 74177; 80048; 80053; 80069; 81001; 82947; 83690; 85025; 87086; 93005; 93010; 94640; 94664; 94760; 94762; 96374-59; 96375-59; 96376-59; 97116; 97162; 97165; 97530; 97535; 99284-25; A9270; C9113; J1642; J1650; J1885; J2060; J2270; J2405; J2765; J3010; J3480; J7042; J7060; J7120; P9612; Q9967

== ENCOUNTER 2022-09-19 00:09 | Day surgery (SDC) | payer MEDICARE, OTHER ==
[~2022-09-19 00:09] MED LIST changes: +ELIQUIS5 M2 PO; +Flomax0.4 MG PO; +JUVEN PACKET1 EAC3 PO; +MEDIHONEY TOP; +OMEP20ER PO
== END 2022-09-19 23:08 | disposition home or self-care (01) ==
LOC: WOUND 00:09
DX: L89.153 Pressure ulcer of sacral region, stage 3 (principal); K31.6 Fistula of stomach and duodenum; J44.9 Chronic obstructive pulmonary disease, unspecified; Z99.81 Dependence on supplemental oxygen
CPT/HCPCS: A9270; G0463

== ENCOUNTER → 2022-10-04 | Outpatient (CLI) | payer MEDICARE, OTHER | END | disposition home or self-care (01) | LOC: LAB SHORT 10:10 → LAB 10:10 | DX: R30.0 Dysuria (principal) | CPT/HCPCS: 87086 ==

== ENCOUNTER 2022-10-10 10:14 | Inpatient (IN) | payer MEDICARE, OTHER ==
[~2022-10-10] VITALS: Ht 160 cm; Wt 36.6 kg
[2022-10-10 10:52] LABS: BASOPHILS ABSOLUTE AUTO 0.01 K/mm3 (0.00-0.23); BASOPHILS PERCENT AUTO 0 % (0-2); EOSINOPHILS PERCENT AUTO 0 % (0-6); Hematocrit 21.7 % (33.0-51.0); Hemoglobin 6.4 g/dL (11.5-16.0); IMMATURE GRAN ABSOLUTE AUTO 0.04 K/mm3 (0.00-0.10); IMMATURE GRAN PERCENT AUTO 1 % (0-1); LYMPHOCYTES ABSOLUTE AUTO 0.37 K/mm3 (0.84-5.20); LYMPHOCYTES PERCENT AUTO 5 % (21-46); MONOCYTES PERCENT AUTO 4 % (4-13); Mean Corpuscular HGB 30.9 pg (26.0-34.0); Mean Corpuscular HGB Conc 29.5 g/dL (31.5-36.5); Mean Corpuscular Volume 105 fL (80-100); Mean Platelet Volume 9.9 fL (9.1-12.4); NEUTROPHILS ABSOLUTE AUTO 6.52 K/mm3 (1.96-9.15); NEUTROPHILS PERCENT AUTO 90 % (41-73); Platelet Count 295 K/mm3 (150-400); RDW Standard Deviation 69.2 fL (35.1-46.3); Red Blood Cell Count 2.07 M/mm3 (3.80-5.20); White Blood Cell Count 7.24 K/mm3 (4.00-11.30)
[2022-10-10 11:24] LABS: Alanine Aminotransfer (ALT/SGP 25 U/L (12-78); Albumin, Blood 2.2 g/dL (3.4-5.0); Albumin/Globulin Ratio 0.7 (0.8-1.8); Alk Phos 104 U/L (50-136); Anion Gap Unable to Calculate mmol/L (6-16); Aspartate Aminotrans (AST/SGOT 22 U/L (12-37); Bilirubin, Total 0.2 mg/dL (0.1-1.0); Blood Urea Nitrogen 20 mg/dL (8-24); Bun/Creatinine Ratio 54.3 (12.0-20.0); CO2, Blood 38 mmol/L (21-32); Calcium, Blood 8.1 mg/dL (8.5-10.1); Chloride, Blood 106 mmol/L (98-108); Creatinine, Blood 0.37 mg/dL (0.40-1.00); Globulin, Blood 3.2 g/dL (2.2-4.0); Glomerular Filtration Rate 107 (60-); Glucose, Blood 183 mg/dL (70-99); Potassium, Blood 2.8 mmol/L (3.5-5.5); Sodium, Blood 143 mmol/L (136-145); Total Protein, Blood 5.4 g/dL (6.4-8.2)
[2022-10-10 11:58] LABS: Influenza A, PCR NEGATIVE (NEGATIVE); Influenza B, PCR NEGATIVE (NEGATIVE); Resp Syncytial Virus, PCR NEGATIVE (NEGATIVE); SARS-Cov-2 (COVID-19) PCR, MMC NEGATIVE (NEGATIVE)
[2022-10-10 12:25] LABS: Base Excess Venous 12.7 mmol/L; Bicarbonate Venous 35.3 mmol/L (24.0-30.0); PCO2 Venous 65.1 mmHg (38-42); pH Blood Venous 7.37 (7.34-7.37)
--- NOTE | 2022-10-10 14:36 | NUR ---
pt very fatigued and dyspnic. She is states was holding her own until a few days ago. She is awaiting next scan and visit with dr lawrence to see if anymore treatment is possible. Pt very weak and will be admitted for furthur follow up.
[2022-10-10] MEDS ORDERED: CARTIA XT120 M9 PO (16:26)
[2022-10-10] MEDS ORDERED: ATEN25 PO (16:26)
[2022-10-10] MEDS ORDERED: ESCI10 PO (16:27)
[2022-10-10] MEDS ORDERED: POTCHL20ER PO (16:27)
[2022-10-10] MEDS ORDERED: Preservision S1 EACH PO (16:28)
[2022-10-10] MEDS ORDERED: THERA-D2000 UNIT PO (16:28)
[2022-10-10] MEDS ORDERED: Hair, Skin & N1 EACH PO (16:28)
--- NOTE | 2022-10-10 17:39 | NUR ---
Shift Summary Received report from JOSEP Shelby. Patient arrived from ER via gurney, 2 personal belongings bag, and on O2 @ 4L. AOx4, following commands. Blood transfusion x 1 bag completed in ER prior to arrival. Still reports mild dizziness with transfer to bed. Nonskid socks on. Photos of wounds in chart. DNR band verified with Pauly Sullivan RN and patient confirmed DNR status acceptable after discussion with Pauly. Patient emptying own ostomy appliance while on bedside commode, 1p SBA to bsc. Continent with urine. Calls appropriately. Independent with bed mobility and turning from side to side. Bed in lowest position. Call light nearby.
[2022-10-10 18:02] LABS: Hematocrit 27.6 % (33.0-51.0); Hemoglobin 8.5 g/dL (11.5-16.0)
[2022-10-11 06:12] LABS: Hematocrit 28.1 % (33.0-51.0); Hemoglobin 8.6 g/dL (11.5-16.0); Mean Corpuscular HGB 30.7 pg (26.0-34.0); Mean Corpuscular HGB Conc 30.6 g/dL (31.5-36.5); Mean Platelet Volume 9.7 fL (9.1-12.4); Platelet Count 268 K/mm3 (150-400); RDW Coefficient Variation 20.8 % (11.7-14.2); RDW Standard Deviation 76.2 fL (35.1-46.3); White Blood Cell Count 7.42 K/mm3 (4.00-11.30)
[2022-10-11 06:13] LABS: Mean Corpuscular Volume 100 fL (80-100)
[2022-10-11 06:43] LABS: Magnesium, Blood 2.2 mg/dL (1.6-2.4)
[2022-10-11 06:49] LABS: Blood Urea Nitrogen 18 mg/dL (8-24); Bun/Creatinine Ratio 39.8 (12.0-20.0); CO2, Blood 39 mmol/L (21-32); Calcium, Blood 7.9 mg/dL (8.5-10.1); Chloride, Blood 109 mmol/L (98-108); Creatinine, Blood 0.45 mg/dL (0.40-1.00); Glomerular Filtration Rate 102 (60-); Glucose, Blood 104 mg/dL (70-99); Potassium, Blood 3.8 mmol/L (3.5-5.5); Sodium, Blood 145 mmol/L (136-145)
--- NOTE | 2022-10-11 17:06 | NUR ---
Shift Summary Patient has been increasingly weak with essentially no appetite. C/O excessive tireness. Had on episode of incontinence, she is normally continent. Auscultated wheezes throughout which is the same as yesterday. Patient getting PRN nebs. Medicated x 1 for anxiety. Remains on 4L O2. Denies pain. Independent with bed mobility. Dressings to coccyx and R abd C/D/I.
[2022-10-12 04:33] LABS: Hematocrit 29.6 % (33.0-51.0); Hemoglobin 8.5 g/dL (11.5-16.0); Mean Corpuscular HGB 30.5 pg (26.0-34.0); Mean Corpuscular HGB Conc 28.7 g/dL (31.5-36.5); Mean Platelet Volume 9.4 fL (9.1-12.4); Platelet Count 316 K/mm3 (150-400); RDW Standard Deviation 78.5 fL (35.1-46.3); Red Blood Cell Count 2.79 M/mm3 (3.80-5.20); White Blood Cell Count 9.33 K/mm3 (4.00-11.30)
[2022-10-12 04:34] LABS: Mean Corpuscular Volume 106 fL (80-100)
[2022-10-12 04:57] LABS: Bun/Creatinine Ratio 54.4 (12.0-20.0); Calcium, Blood 8.5 mg/dL (8.5-10.1); Creatinine, Blood 0.48 mg/dL (0.40-1.00); Potassium, Blood 4.2 mmol/L (3.5-5.5)
--- NOTE | 2022-10-12 07:22 | NUR ---
ASSEMBLER HYDRAULIC BACKHOE SUMMARY PT VERY LETHARGIC AND DIFFICULT TO AROUSE AT BEGINNING OF SHIFT. PER REPORT PT DECLINING AND NO APPETITE/FLUID INTAKE. DURING ASSESSMENT FOUND PT HR TO BE ELEVATED AND BLOOD PRESSURE WAS IN 60-70'S. PT LUNG SOUNDS VERY DIMINISHED AND WHEEZY. 3 PLUS EDEMA IN BILTERAL FEET WITH DEPENDENT EDEMA IN ARMS/HANDS. BREATHING WAS SLOW AND LABORED. CALLED A RN MEDICATION. ORDER FOR 500 BOLUS OF LR W/100MLS OF ALBUMIN. PT BLOOD PRESSURE IMPROVED TO LOW 100'S WHILE HR REMAIND IN 120-130'S. MONITORED VITALS Q15 MINS T/O SHIFT. CALL TO PT SISTER/NEXT OF KIN. DISCUSSED EVENTS. SISTER STATED THAT THEY WERE CONSIDERING PALLIATIVE CARE BUT HOSPICE WAS NOT TALKED ABOUT. SISTER STATED SHE WILL BE IN TO SEE PT TODAY. ENCOURAGED HER TO DISCUSS PT PLAN OF CARE WITH STAFF. PT REMAINED LETHARGIC T/O SHIFT. BLOD PRESSURE SLOWLY TRENDING BACK DOWN AND IN THE 90'S AT END OF SHIFT. PT HAS STAGE FOUR PRESSURE WOUND ON COCCYX. DRESSING CHANGED. PT INCONTINENT OF URINE. PT REMAINS ON 4L OF O2. NEW ORDER TO PLACE PT ON TELE. PT STILL ON REGULAR DIET AND NOT EATING. GAVE REPORT TO ONCOMING NURSE; RECOMMENDED DIET CHANGE TO PUREE OR MECH SOFT.
--- NOTE | 2022-10-12 12:42 | NUR ---
Upon being called in for a call-back By RN Land Checker Elfego, I visited the patient. Family are present and talk freely about their loved one. They discuss her wonderful disposition, her ability to overcome challenging circustances in life and her family unit complications. They talk about her Mandaeism madhavi and how at peace they are about the decision to move to comfort measures only. I normalize their experience, and provide therapeutic listening, anticipitory grief support, gentle christian counselor and prayer. Patient responded well to prayer ends the prayer with an amen. Family responded well to the time and care given and voice their appreciation. They showed signs of being comforted.
--- NOTE | 2022-10-12 18:04 | NUR ---
pt seen this morning transistioning. started on comfort care. Sister at bedside. family coming from out of town. roxinaol effective Sister wanted chaplian. she felt great releif after visiting with valerie garrett.
--- NOTE | 2022-10-13 04:33 | NUR ---
OPTICAL ENGINEERING MANAGER SUMMARY NO ACUTE CHANGES THIS SHIFT. PATIENT MEDICATED PER EMAR FOR SIGNS OF AIR HUNGER. Q2-HOUR REPOSITIONING. FAMILY REMAINS AT BEDSIDE.
--- NOTE | 2022-10-13 16:07 | NUR ---
Spiritual care visit conducted. Family are present in the room and are having positive conversation. I provide therapeutic listening and prayer for the patient and family. Family voice their appreciation and show signs of being comforted.
--- NOTE | 2022-10-13 18:34 | NUR ---
SHIFT SUMMARY- PT IS UNRESPONSIVE, ON COMFORT CARE. FAMILY IS AT THE BEDSIDE. THE PT SISTER IS PRIMARY CAREGIVER AND SHE STAYS AT THE BEDSIDE T/O THE NIGHT WELL. PT HAS BEEN REPOSITIONED FAMILY ALLOWED. PT FEET ELEVATED ON 3 PILLOWS AND ARE LESS EDEMATOUS THAN THIS MORNING. LOTION APPLIED TO THE PT FEET AND HANDS AT THE START OF THE SHIFT AND THE FEET AGAIN AT THE END OF THE SHIFT. PT FAMILY AGREES THE PT HAS REMAINED COMFORTABLE T/O THE SHIFT AND NO MEDICATION HAS BEEN NEEDED. PT HAS NO S&S OF DISTRESS OR AIR HUNGER, WILL CTM AND PASS ON TO NIGHT RN IN BEDSIDE REPORT. PT HAS AN OSTOMY WITH NO OUTPUT.
--- NOTE | 2022-10-14 04:17 | NUR ---
MATHEMATICS TEACHER SUMMARY PATIENT IS UNRESPONSIVE AND APNEIC BREATHING PATTERN. FAMILY AT BEDSIDE. REPOSITIONING PROVIDED TO PROMOTE COMFORT. BED LOW AND LOCKED. FAMILY ORIENTED TO CALL LIGHT AND ENCOURAGED TO CALL FOR ANY CONCERNS OR QUESTIONS. THIS RN WILL CONTINUE TO MONITOR.
--- NOTE | 2022-10-14 06:27 | NUR ---
EVENT NOTE PATIENT PRONOUNCED AT 0618 BY THIS RN AND BETO CHAIREZ, JOSEP. FAMILY IS CURRENTLY AT BEDSIDE, MORE FAMILY IS EXPECTED TO JOIN THEM. BRAYAN MARINELLI, MANAGEMENT SPECIALIST, NOTIFIED OF . PHYSCIAN ALSO NOTIFIED. NO FURTHER UPDATES AT THIS TIME.
--- NOTE | 2022-10-14 08:05 | NUR ---
Spiritual care visit conducted. I met with family in the hallway outside the patient's rm as they were grieving appropriately. I conducted a life review with new family members that had flown in from [place] and provided theological insights, grief support and a calming presence. Family responded well and voiced gratitude for the ministry during patient's many stays in the hospital all the way to her [place].
--- NOTE | 2022-10-14 11:40 | NUR ---
PT TAKEN TO [facility] BY [facility]. FAMILY AWARE. POST MORTEM CARE PROVIDED. ANGIE DEACCESSED.
== END 2022-10-14 06:18 | DRG 374 ==
LOC: ER 10:14 → MEDS 10:15
PROVIDERS: Emergency Medicine; Internal Medicine; Nurse Practitioner Acute Care; Physician Assistant; ADMIT Hospitalist
PROC: 30233N1 Transfusion of Nonautologous Red Blood Cells into Peripheral Vein, Percutaneous Approach (ICD-10-PCS; principal; 2022-10-10)
PROC: 3E02340 Introduction of Influenza Vaccine into Muscle, Percutaneous Approach (ICD-10-PCS; 2022-10-10)
DX: C20 Malignant neoplasm of rectum (principal); J18.9 Pneumonia, unspecified organism; J96.21 Acute and chronic respiratory failure with hypoxia; K92.2 Gastrointestinal hemorrhage, unspecified; J44.0 Chronic obstructive pulmonary disease with (acute) lower respiratory infection; C78.7 Secondary malignant neoplasm of liver and intrahepatic bile duct; C79.00 Secondary malignant neoplasm of unspecified kidney and renal pelvis; E46 Unspecified protein-calorie malnutrition; F11.20 Opioid dependence, uncomplicated; Z68.1 Body mass index [BMI] 19.9 or less, adult; D68.9 Coagulation defect, unspecified; R64 Cachexia; Z51.5 Encounter for palliative care; Z66 Do not resuscitate; I48.0 Paroxysmal atrial fibrillation; Z20.822 Contact with and (suspected) exposure to COVID-19; K58.9 Irritable bowel syndrome, unspecified; F32.A Depression, unspecified; D63.0 Anemia in neoplastic disease; F41.9 Anxiety disorder, unspecified; G25.81 Restless legs syndrome; E87.6 Hypokalemia; D50.9 Iron deficiency anemia, unspecified; G89.4 Chronic pain syndrome; M19.90 Unspecified osteoarthritis, unspecified site; Z23 Encounter for immunization; Z87.891 Personal history of nicotine dependence; Z90.49 Acquired absence of other specified parts of digestive tract; Z93.3 Colostomy status; Z85.048 Personal history of other malignant neoplasm of rectum, rectosigmoid junction, and anus; Z99.81 Dependence on supplemental oxygen; Z79.01 Long term (current) use of anticoagulants; Z98.890 Other specified postprocedural states; Z79.899 Other long term (current) drug therapy; Z95.828 Presence of other vascular implants and grafts; Z79.51 Long term (current) use of inhaled steroids; Z79.52 Long term (current) use of systemic steroids
CPT/HCPCS: 0241U; 36415; 36430; 71046; 80048; 80053; 82803; 82947; 83605; 83735; 83880; 84145; 84484; 85014; 85018; 85025; 85027; 86850; 86900; 86901; 86923; 87040; 90686; 93005; 93010; 94640; 94664; 94760; 96374; 96375; 96376; 99285-25; A9270; C9113; G0008; G0378; J0696; J1642; J2543; J7030; J7050; J7120; P9016; P9047